=== PATIENT | female | born 1950 | race American Indian/Alaskan Native ===

== ENCOUNTER 2020-03-17 11:36 | Observation (INO) | payer MEDICARE ==
[2020-03-17 13:03] LABS: Hemoglobin 11.3 gm/dl (10.1-14.3); Mean Corpuscular HGB Conc 31 % (30-34); Mean Corpuscular Volume 85 fl (79-97); Platelet Count 140 K/mm3 (140-440); Red Blood Count 4.22 M/mm3 (3.65-5.03); Red Cell Distribution Width 15.6 % (13.2-15.2)
--- NOTE | 2020-03-17 13:06 | XRay Report ---
Chest 2 views INDICATION: Chest pain IMPRESSION: Tracheostomy tube projects at midline. Significant elevation of the left hemidiaphragm wi th multiple dilated loops of colon within the left upper quadrant. Ill-defined density within the lef t lower lung may represent atelectasis. Faint ill-defined densities within the right lower lung. Signer Name: Les Blunt MD Signed: 03/17/2020 1:01 PM Workstation Name: [id number]
[2020-03-17 13:25] LABS: BUN/Creatinine Ratio 16; Blood Urea Nitrogen 23 mg/dL (7-17); Calcium 9.6 mg/dL (8.4-10.2); Hemolysis Index 11
[2020-03-17 14:51] LABS: Platelet Estimate Consistent w Auto; RBC Morphology Normal; Total Cells Counted 100
--- NOTE | 2020-03-17 18:28 | Emergency Department Report ---
ED Shortness of Breath HPI - General Chief Complaint: Dyspnea/Respdistress Stated Complaint: DIFFICULTY BREATHING Source: patient Mode of arrival: Ambulatory Limitations: No Limitations - History of Present Illness Initial Comments: Patient is a 70-year-old F Burmese female who has a trach secondary to remote brain surgery who is presenting with cough shortness of breath for the last 3 to 4 days. Patient states the cough is wet and mildly productive. States is been very short of breath. Patient denies any fever body aches nausea vomiting diarrhea. She has not had COVID-19 testing. Improves With: oxygen Worsens With: nothing Associated Symptoms: cough, sputum production - Related Data Allergies Allergy/AdvReac Type Severity Reaction Status Date / Time celecoxib [From Celebrex] Allergy Unknown Verified 03/17/20 12:05 ED Review of Systems ROS: Stated complaint: DIFFICULTY BREATHING Other details as noted in HPI Comment: All other systems reviewed and negative ED Past Medical Hx - Past Medical History Previous Medical History?: Yes Hx Hypertension: Yes Hx Dementia: Yes Additional medical history: O2 AT HOME - Surgical History Past Surgical History?: Yes Additional Surgical History: KNEE REPLACEMENTS ED Physical Exam - General Limitations: No Limitations General appearance: alert, in no apparent distress - Head Head exam: Present: atraumatic, normocephalic - Eye Eye exam: Present: normal appearance, PERRL, EOMI - ENT ENT exam: Present: mucous membranes moist - Neck Neck exam: Present: normal inspection - Respiratory Respiratory exam: Present: respiratory distress, wheezes, accessory muscle use. Absent: normal lung sounds bilaterally, rales, rhonchi - Cardiovascular Cardiovascular Exam: Present: regular rate, normal rhythm, normal heart sounds. Absent: systolic murmur, diastolic murmur, rubs, gallop - GI/Abdominal GI/Abdominal exam: Present: soft, normal bowel sounds. Absent: distended, tenderness, guarding, rebound - Extremities Exam Extremities exam: Present: normal inspection - Back Exam Back exam: Present: normal inspection - Neurological Exam Neurological exam: Present: alert, oriented X3 - Psychiatric Psychiatric exam: Present: normal affect, normal mood - Skin Skin exam: Present: warm, dry, intact, normal color. Absent: rash ED Course Vital Signs 03/17/20 03/17/20 03/17/20 12:04 18:46 18:48 Temperature 98.1 F 98.0 F Pulse Rate 75 80 Respiratory 24 31 H Rate Blood Pressure 164/81 181/92 [Left] O2 Sat by Pulse 94 100 Oximetry ED Medical Decision Making - Lab Data Result diagrams: 03/17/20 12:35 03/17/20 21:15 Lab Results 03/17/20 03/17/20 Range/Units 12:35 12:35 WBC 6.6 (4.5-11.0) K/mm3 RBC 4.22 (3.65-5.03) M/mm3 Hgb 11.3 (10.1-14.3) gm/dl Hct 36.0 (30.3-42.9) % MCV 85 (79-97) fl MCH 27 L (28-32) pg MCHC 31 (30-34) % RDW 15.6 H (13.2-15.2) % Plt Count 140 (140-440) K/mm3 Eos % (Auto) Bone Char Puller Add Manual Diff Complete Total Counted 100 Seg Neuts % (Manual) 63.0 (40.0-70.0) % Band Neutrophils % 0 % Lymphocytes % (Manual) 12.0 L (13.4-35.0) % Reactive Lymphs % (Man) 0 % Monocytes % (Manual) 3.0 (0.0-7.3) % Eosinophils % (Manual) 20.0 H (0.0-4.3) % Basophils % (Manual) 2.0 H (0.0-1.8) % Metamyelocytes % 0 % Myelocytes % 0 % Promyelocytes % 0 % Blast Cells % 0 % Nucleated RBC % Not Reportable Seg Neutrophils # Man 4.2 (1.8-7.7) K/mm3 Band Neutrophils # 0.0 K/mm3 Lymphocytes # (Manual) 0.8 L (1.2-5.4) K/mm3 Abs React Lymphs (Man) 0.0 K/mm3 Monocytes # (Manual) 0.2 (0.0-0.8) K/mm3 Eosinophils # (Manual) 1.3 H (0.0-0.4) K/mm3 Basophils # (Manual) 0.1 (0.0-0.1) K/mm3 Metamyelocytes # 0.0 K/mm3 Myelocytes # 0.0 K/mm3 Promyelocytes # 0.0 K/mm3 Blast Cells # 0.0 K/mm3 WBC Morphology Not Reportable Hypersegmented Neuts Not Reportable Hyposegmented Neuts Not Reportable Hypogranular Neuts Not Reportable Smudge Cells Not Reportable Toxic Granulation Not Reportable Toxic Vacuolation Not Reportable Dohle Bodies Not Reportable Pelger-Huet Anomaly Not Reportable Vita Rods Not Reportable Platelet Estimate Consistent w auto Clumped Platelets Not Reportable Plt Clumps, EDTA Not Reportable Large Platelets Not Reportable Giant Platelets Not Reportable Platelet Satelliting Not Reportable Plt Morphology Comment Not Reportable RBC Morphology Normal Dimorphic RBCs Not Reportable Polychromasia Not Reportable Hypochromasia Not Reportable Poikilocytosis Not Reportable Anisocytosis Not Reportable Microcytosis Not Reportable Macrocytosis Not Reportable Spherocytes Not Reportable Pappenheimer Bodies Not Reportable Sickle Cells Not Reportable Target Cells Not Reportable Tear Drop Cells Not Reportable Ovalocytes Not Reportable Helmet Cells Not Reportable [place] Bodies Not Reportable [place] Rings Not Reportable Ji Cells Not Reportable Bite Cells Not Reportable Crenated Cell Not Reportable Elliptocytes Not Reportable Acanthocytes (Spur) Not Reportable Rouleaux Not Reportable Hemoglobin C Crystals Not Reportable Schistocytes Not Reportable Malaria parasites Not Reportable Erick Bodies Not Reportable Hem Pathologist Commnt No Sodium 142 (137-145) mmol/L Potassium 4.1 (3.6-5.0) mmol/L Chloride 100.8 (98-107) mmol/L Carbon Dioxide 28 (22-30) mmol/L Anion Gap 17 mmol/L BUN 23 H (7-17) mg/dL Creatinine 1.4 H (0.6-1.2) mg/dL Estimated GFR 45 ml/min BUN/Creatinine Ratio 16 % Glucose 105 H (65-100) mg/dL Calcium 9.6 (8.4-10.2) mg/dL Troponin T < 0.010 (0.00-0.029) ng/mL - Radiology Data [facility] [address] [place] [address] XRay Report Signed Patient: RAMAKRISHNA DUKES MR#: [id number] : 1950 Acct:[id number] Age/Sex: 70 / F ADM Date: 03/17/20 Loc: ED Attending Dr: Ordering Physician: ED DOC, Date of Service: 03/17/20 Procedure(s): XR chest routine 2V Accession Number(s): [id number] cc: PEE KOVACS MD Fluoro Time In Minutes: Chest 2 views INDICATION: Chest pain IMPRESSION: Tracheostomy tube projects at midline. Significant elevation of the left hemidiaphragm with multiple dilated loops of colon within the left upper quadrant. Ill- defined density within the left lower lung may represent atelectasis. Faint ill-defined densities within the right lower lung. Signer Name: Les Blunt MD Signed: 03/17/2020 1:01 PM Workstation Name: [id number] - Medical Decision Making After hour-long neb treatment the patient is continued to have wheezing and shortness of breath. Patient will be admitted to the hospitalist service for further management. Critical care attestation.: If time is entered above; I have spent that time in minutes in the direct care of this critically ill patient, excluding procedure time. ED Disposition Clinical Impression: Acute bronchitis, Bronchospasm, Suspected COVID-19 virus infection Disposition: OP ADMIT IP TO THIS HOSP Is pt being admited?: Yes Does the pt Need Aspirin: No Condition: Stable Time of Disposition: 22:05
[2020-03-17] MEDS ORDERED: MAGNESIUM SULFATE 2 GM/50 ML BAG IV ONE (18:40)
[2020-03-17] MEDS ORDERED: ALBUTEROL 2.5 MG/3 ML NEBU IH ONE (18:40)
[2020-03-17] MEDS ORDERED: IPRATROPIUM 0.02% NEBU 2.5 ML IH ONE (18:40)
[2020-03-17] MEDS ORDERED: methylPREDNISolone Sod Succinate 125 MG/2 ML INJ IV ONE (18:40)
[2020-03-17] MEDS ORDERED: methylPREDNISolone Sod Succinate 40 MG/1 ML INJ ONE (20:49)
[2020-03-17] MEDS ORDERED: methylPREDNISolone Sod Succinate 125 MG/2 ML INJ ONE (20:51)
[2020-03-17] MEDS ORDERED: BENZONATATE 100 MG CAP PO ONE ×2 (20:59→21:01)
[2020-03-17] MEDS ORDERED: MORPHINE 2 MG/1 ML INJ IV PRN (22:30)
[2020-03-17] MEDS ORDERED: ONDANSETRON 4 MG/2 ML INJ IV PRN (22:30)
[2020-03-17] MEDS ORDERED: MAGNESIUM HYDROXIDE (MOM) ORAL LIQD UDC PO PRN (22:30)
[2020-03-17] MEDS ORDERED: ACETAMINOPHEN 325 MG TAB PO PRN (22:30)
--- NOTE | 2020-03-17 22:40 | History and Physical Report ---
History of Present Illness Date of examination: 03/17/20 Date of admission: 03/17/2020 Chief complaint: Cough Shortness of breath History of present illness: 70-year-old -Y[place]i female with known history of hypertension, history of trach secondary to remote brain surgery and on oxygen at home presenting to the emergency room today complaining of cough, congestion, shortness of breath for the past 3 to 4 days. Patient states that cough is slightly productive of some whitish sputum. She denies any fever or chills, no chest pain, no nausea vomiting, no abdominal pain and no diarrhea. Patient denies any sick contacts and no recent travel, she denies any contact with anyone with COVID-19. Upon arrival in the emergency room patient was found to be wheezing and she was given some nebulizing treatments. Work-up today chest x-ray reveals:Tracheostomy tube projects at midline. Significant elevation of the left hemidiaphragm with multiple dilated loops of colon within the left upper quadrant. Ill- defined density within the left lower lung may represent atelectasis. Faint ill-defined densities within the right lower lung. Patient is being admitted for dyspnea possibly secondary to bronchitis and will rule out COVID 19. Past History Past Medical History: hypertension, other (Dementia,H/O Trach with oxygen at home) Past Surgical History: total knee replacement, Other (Trach Placement, Brain surgery) Social history: no significant social history Family history: no significant family history Medications and Allergies Allergies Allergy/AdvReac Type Severity Reaction Status Date / Time celecoxib [From Celebrex] Allergy Unknown Verified 03/17/20 12:05 Home Medications Medication Instructions Recorded Confirmed Last Taken Type Aspirin 81 mg PO DAILY 03/18/20 03/18/20 Unknown History Furosemide [Lasix TAB] 20 mg PO DAILY 03/18/20 03/18/20 Unknown History Gabapentin 300 mg PO BID 03/18/20 03/18/20 Unknown History Losartan/Hydrochlorothiazide mg PO DAILY 03/18/20 Unknown History [Losartan-Hctz 100-25 mg Tab] Metoprolol Tartrate [Lopressor] 100 mg PO BID 03/18/20 03/18/20 Unknown History Pravastatin 10 mg PO DAILY 03/18/20 03/18/20 Unknown History Active Meds: Active Medications Acetaminophen (Tylenol) 650 mg PO Q4H PRN PRN Reason: Pain MILD(1-3)/Fever >100.5/GARCIA Albuterol/Ipratropium (Duoneb *Not For Prn Use*) 1 ampul IH Q6HRT GILBERTO Magnesium Hydroxide (Milk Of Magnesia) 30 ml PO Q4H PRN PRN Reason: Constipation Methylprednisolone Sodium Succinate (Solu-Medrol) 40 mg IV Q8HR GILBERTO Morphine Sulfate (Morphine) 2 mg IV Q4H PRN PRN Reason: Pain, Moderate (4-6) Ondansetron HCl (Zofran) 4 mg IV Q8H PRN PRN Reason: Nausea And Vomiting Sodium Chloride (Sodium Chloride Flush Syringe 10 Ml) 10 ml IV BID GILBERTO Sodium Chloride (Sodium Chloride Flush Syringe 10 Ml) 10 ml IV PRN PRN PRN Reason: LINE FLUSH Review of Systems Constitutional: no fever, no chills Ears, nose, mouth and throat: no nasal congestion, no sore throat Cardiovascular: no chest pain, no palpitations Respiratory: cough, shortness of breath Gastrointestinal: no abdominal pain, no nausea, no vomiting, no diarrhea Genitourinary Female: no flank pain, no dysuria, no hematuria Musculoskeletal: low back pain, no neck pain Integumentary: no rash, no pruritis Neurological: no headaches, no confusion Psychiatric: no anxiety, no depression Exam - Constitutional Vitals: Temp Pulse Resp BP Pulse Ox 98.0 F 80 31 H 181/92 100 03/17/20 18:48 03/17/20 18:46 03/17/20 18:46 03/17/20 18:48 03/17/20 18:46 General appearance: Present: no acute distress, well-nourished, other (Trach in place) - EENT Eyes: Present: PERRL, EOM intact ENT: hearing intact, clear oral mucosa, dentition normal - Neck Neck: Present: supple, normal ROM - Respiratory Respiratory effort: normal Respiratory: bilateral: wheezing - Cardiovascular Rhythm: regular Heart Sounds: Present: S1 & S2. Absent: gallop, systolic murmur, diastolic murmur, rub - Extremities Extremities: no ischemia, pulses intact, pulses symmetrical, No edema, Full ROM Peripheral Pulses: within normal limits - Abdominal General gastrointestinal: Present: soft, non-tender, non-distended, normal bowel sounds. Absent: mass - Integumentary Integumentary: Present: clear, warm, dry - Musculoskeletal Musculoskeletal: strength equal bilaterally - Psychiatric Psychiatric: appropriate mood/affect, intact judgment & insight, memory intact, cooperative - Neurologic Neurologic: CNII-XII intact, no focal deficits, moves all extremities HEART Score - HEART Score Troponin: Troponin T < 0.010 ng/mL (0.00-0.029) 03/17/20 12:35 Results - Labs CBC & Chem 7: 03/17/20 12:35 03/17/20 21:15 Labs: Abnormal lab results 03/17/20 03/17/20 03/17/20 Range/Units 12:35 12:35 21:15 MCH 27 L (28-32) pg RDW 15.6 H (13.2-15.2) % Lymphocytes % (Manual) 12.0 L (13.4-35.0) % Eosinophils % (Manual) 20.0 H (0.0-4.3) % Basophils % (Manual) 2.0 H (0.0-1.8) % Lymphocytes # (Manual) 0.8 L (1.2-5.4) K/mm3 Eosinophils # (Manual) 1.3 H (0.0-0.4) K/mm3 D-Dimer 360.31 H (0-234) ng/mlDDU BUN 23 H (7-17) mg/dL Creatinine 1.4 H (0.6-1.2) mg/dL Glucose 105 H (65-100) mg/dL 03/17/20 Range/Units 21:15 MCH (28-32) pg RDW (13.2-15.2) % Lymphocytes % (Manual) (13.4-35.0) % Eosinophils % (Manual) (0.0-4.3) % Basophils % (Manual) (0.0-1.8) % Lymphocytes # (Manual) (1.2-5.4) K/mm3 Eosinophils # (Manual) (0.0-0.4) K/mm3 D-Dimer (0-234) ng/mlDDU BUN (7-17) mg/dL Creatinine (0.6-1.2) mg/dL Glucose 116 H (65-100) mg/dL Assessment and Plan - Patient Problems (1) Acute bronchitis Current Visit: Yes Status: Acute Plan to address problem: Patient placed on empiric IV antibiotics. (2) Suspected COVID-19 virus infection Current Visit: Yes Status: Acute Plan to address problem: Patient placed on isolation precautions. We await COVID-19 testing results[address] will place a consult to infectious disease for evaluation and recommendation. (3) Bronchospasm Current Visit: Yes Status: Acute Plan to address problem: Patient placed on nebulizer treatment and IV steroid. We will keep O2 saturation greater or equal to 94%. (4) Hypertension Current Visit: Yes Status: Acute Plan to address problem: We will resume routine home medications and monitor vital signs closely. (5) DVT prophylaxis Current Visit: Yes Status: Acute Plan to address problem: Patient placed on subcutaneous heparin. (6) Full code status Current Visit: Yes Status: Acute
[2020-03-18 00:12] LABS: C-Reactive Protein 0.1 mg/dL (0.00-1.30)
[2020-03-18] MEDS: IPRATROPIUM/ALBUTEROL SULFATE 3 ML AMPUL.NEB IH SCH ×4 (01:11→20:31)
[2020-03-18 05:47] LABS: INR 1.07 (0.87-1.13)
[2020-03-18 05:49] LABS: Calcium 9.6 mg/dL (8.4-10.2)
[2020-03-18] MEDS: HEPARIN 5,000 UNIT/1 ML VIAL SUB-Q SCH ×3 (08:05→21:27)
[2020-03-18] MEDS: methylPREDNISolone Sod Succinate 40 MG/1 ML INJ IV SCH ×3 (08:05→21:27)
[2020-03-18] MEDS: GABAPENTIN 300 MG CAP PO SCH ×2 (09:23→21:27)
[2020-03-18] MEDS: METOPROLOL TARTRATE 100 MG TAB PO SCH ×2 (09:24→21:27)
[2020-03-18] MEDS: ASPIRIN 81 MG TAB CHEW PO SCH (09:24)
[2020-03-18] MEDS: PRAVASTATIN 20 MG TAB PO SCH (09:24)
[2020-03-18] MEDS ORDERED: NON-FORMULARY EACH (Aspirin 81 MG) PO SCH (10:00)
[2020-03-18] MEDS ORDERED: NON-FORMULARY EACH (Gabapentin 300 MG) PO SCH (10:00)
[2020-03-18] MEDS ORDERED: PRAVASTATIN 10 MG PO SCH (10:00)
--- NOTE | 2020-03-18 13:01 | Progress Note ---
Assessment and Plan Assessment and plan: - Patient Problems (1) Acute bronchitis Current Visit: Yes Status: Acute Plan to address problem: Antibiotics Steroids, bronchodilators (2) Suspected COVID-19 virus infection Current Visit: Yes Status: Acute Plan to address problem: COVID-19 pending (3) Bronchospasm Current Visit: Yes Status: Acute Plan to address problem: Patient placed on nebulizer treatment and IV steroid. We will keep O2 saturation greater or equal to 94%. (4) Hypertension Current Visit: Yes Status: Acute Plan to address problem: We will resume routine home medications and monitor vital signs closely. (5) DVT prophylaxis Current Visit: Yes Status: Acute Plan to address problem: Patient placed on subcutaneous heparin. (6) Full code status Current Visit: Yes Status: Acute History Interval history: Patient seen and examined at bedside this morning. She has repetitive coughing spells. She is on steroids and bronchodilators. COVID-19 test pending Hospitalist Physical - Constitutional Vitals: Temp Pulse Resp BP Pulse Ox 98.2 F 77 20 168/78 97 03/18/20 03:02 03/18/20 03:02 03/18/20 03:02 03/18/20 03:02 03/18/20 03:02 General appearance: Present: no acute distress, well-nourished, other (Trach in place) - EENT Eyes: Present: PERRL - Respiratory Respiratory: bilateral: wheezing - Extremities Extremities: No edema - Abdominal General gastrointestinal: soft, non-tender, non-distended, normal bowel sounds - Psychiatric Psychiatric: appropriate mood/affect - Neurologic Neurologic: CNII-XII intact HEART Score - HEART Score Troponin: Troponin T < 0.010 ng/mL (0.00-0.029) 03/17/20 12:35 Results - Labs CBC & Chem 7: 03/17/20 12:35 03/18/20 05:09 Labs: Laboratory Last Values WBC 6.6 K/mm3 (4.5-11.0) 03/17/20 12:35 RBC 4.22 M/mm3 (3.65-5.03) 03/17/20 12:35 Hgb 11.3 gm/dl (10.1-14.3) 03/17/20 12:35 Hct 36.0 % (30.3-42.9) 03/17/20 12:35 MCV 85 fl (79-97) 03/17/20 12:35 MCH 27 pg (28-32) L 03/17/20 12:35 MCHC 31 % (30-34) 03/17/20 12:35 RDW 15.6 % (13.2-15.2) H 03/17/20 12:35 Plt Count 140 K/mm3 (140-440) 03/17/20 12:35 Eos % (Auto) Job Development Specialist 03/17/20 12:35 Add Manual Diff Complete 03/17/20 12:35 Total Counted 100 03/17/20 12:35 Seg Neuts % (Manual) 63.0 % (40.0-70.0) 03/17/20 12:35 Band Neutrophils % 0 % 03/17/20 12:35 Lymphocytes % (Manual) 12.0 % (13.4-35.0) L 03/17/20 12:35 Reactive Lymphs % (Man) 0 % 03/17/20 12:35 Monocytes % (Manual) 3.0 % (0.0-7.3) 03/17/20 12:35 Eosinophils % (Manual) 20.0 % (0.0-4.3) H 03/17/20 12:35 Basophils % (Manual) 2.0 % (0.0-1.8) H 03/17/20 12:35 Metamyelocytes % 0 % 03/17/20 12:35 Myelocytes % 0 % 03/17/20 12:35 Promyelocytes % 0 % 03/17/20 12:35 Blast Cells % 0 % 03/17/20 12:35 Nucleated RBC % Not Reportable 03/17/20 12:35 Seg Neutrophils # Man 4.2 K/mm3 (1.8-7.7) 03/17/20 12:35 Band Neutrophils # 0.0 K/mm3 03/17/20 12:35 Lymphocytes # (Manual) 0.8 K/mm3 (1.2-5.4) L 03/17/20 12:35 Abs React Lymphs (Man) 0.0 K/mm3 03/17/20 12:35 Monocytes # (Manual) 0.2 K/mm3 (0.0-0.8) 03/17/20 12:35 Eosinophils # (Manual) 1.3 K/mm3 (0.0-0.4) H 03/17/20 12:35 Basophils # (Manual) 0.1 K/mm3 (0.0-0.1) 03/17/20 12:35 Metamyelocytes # 0.0 K/mm3 03/17/20 12:35 Myelocytes # 0.0 K/mm3 03/17/20 12:35 Promyelocytes # 0.0 K/mm3 03/17/20 12:35 Blast Cells # 0.0 K/mm3 03/17/20 12:35 WBC Morphology Not Reportable 03/17/20 12:35 Hypersegmented Neuts Not Reportable 03/17/20 12:35 Hyposegmented Neuts Not Reportable 03/17/20 12:35 Hypogranular Neuts Not Reportable 03/17/20 12:35 Smudge Cells Not Reportable 03/17/20 12:35 Toxic Granulation Not Reportable 03/17/20 12:35 Toxic Vacuolation Not Reportable 03/17/20 12:35 Dohle Bodies Not Reportable 03/17/20 12:35 Pelger-Huet Anomaly Not Reportable 03/17/20 12:35 Vita Rods Not Reportable 03/17/20 12:35 Platelet Estimate Consistent w auto 03/17/20 12:35 Clumped Platelets Not Reportable 03/17/20 12:35 Plt Clumps, EDTA Not Reportable 03/17/20 12:35 Large Platelets Not Reportable 03/17/20 12:35 Giant Platelets Not Reportable 03/17/20 12:35 Platelet Satelliting Not Reportable 03/17/20 12:35 Plt Morphology Comment Not Reportable 03/17/20 12:35 RBC Morphology Normal 03/17/20 12:35 Dimorphic RBCs Not Reportable 03/17/20 12:35 Polychromasia Not Reportable 03/17/20 12:35 Hypochromasia Not Reportable 03/17/20 12:35 Poikilocytosis Not Reportable 03/17/20 12:35 Anisocytosis Not Reportable 03/17/20 12:35 Microcytosis Not Reportable 03/17/20 12:35 Macrocytosis Not Reportable 03/17/20 12:35 Spherocytes Not Reportable 03/17/20 12:35 Pappenheimer Bodies Not Reportable 03/17/20 12:35 Sickle Cells Not Reportable 03/17/20 12:35 Target Cells Not Reportable 03/17/20 12:35 Tear Drop Cells Not Reportable 03/17/20 12:35 Ovalocytes Not Reportable 03/17/20 12:35 Helmet Cells Not Reportable 03/17/20 12:35 Hanley-[place] Bodies Not Reportable 03/17/20 12:35 [place] Rings Not Reportable 03/17/20 12:35 [place] Cells Not Reportable 03/17/20 12:35 Bite Cells Not Reportable 03/17/20 12:35 Crenated Cell Not Reportable 03/17/20 12:35 Elliptocytes Not Reportable 03/17/20 12:35 Acanthocytes (Spur) Not Reportable 03/17/20 12:35 Rouleaux Not Reportable 03/17/20 12:35 Hemoglobin C Crystals Not Reportable 03/17/20 12:35 Schistocytes Not Reportable 03/17/20 12:35 Malaria parasites Not Reportable 03/17/20 12:35 Erick Bodies Not Reportable 03/17/20 12:35 Hem Pathologist Commnt No 03/17/20 12:35 PT 14.0 Sec. (12.2-14.9) 03/18/20 05:09 INR 1.07 (0.87-1.13) 03/18/20 05:09 D-Dimer 360.31 ng/mlDDU (0-234) H 03/17/20 21:15 Sodium 142 mmol/L (137-145) 03/18/20 05:09 Potassium 4.5 mmol/L (3.6-5.0) 03/18/20 05:09 Chloride 98.8 mmol/L (98-107) 03/18/20 05:09 Carbon Dioxide 27 mmol/L (22-30) 03/18/20 05:09 Anion Gap 21 mmol/L 03/18/20 05:09 BUN 25 mg/dL (7-17) H 03/18/20 05:09 Creatinine 1.4 mg/dL (0.6-1.2) H 03/18/20 05:09 Estimated GFR 45 ml/min 03/18/20 05:09 BUN/Creatinine Ratio 18 % 03/18/20 05:09 Glucose 260 mg/dL (65-100) H 03/18/20 05:09 Calcium 9.6 mg/dL (8.4-10.2) 03/18/20 05:09 Ferritin 93.0 ng/mL (10.0-200.0) 03/17/20 21:15 Lactate Dehydrogenase 250 units/L (91-180) H 03/17/20 21:15 Troponin T < 0.010 ng/mL (0.00-0.029) 03/17/20 12:35 C-Reactive Protein 0.10 mg/dL (0.00-1.30) 03/17/20 21:15 Procalcitonin 0.32 ng/mL (<0.15) 03/17/20 21:15 Active Medications - Current Medications Current Medications: Generic Name Dose Route Start Last Admin Trade Name Freq PRN Reason Stop Dose Admin Acetaminophen 650 mg 03/17/20 22:30 Tylenol PO Q4H PRN Pain MILD(1-3)/Fever >100.5/GARCIA Albuterol/Ipratropium 1 ampul 03/18/20 02:00 03/18/20 08:34 Duoneb *Not For Prn Use* IH 1 ampul Q6HRT GILBERTO Administration Aspirin 81 mg 03/18/20 10:00 03/18/20 09:24 Baby Aspirin PO 81 mg QDAY GILBERTO Administration Gabapentin 300 mg 03/18/20 10:00 03/18/20 09:23 Gabapentin PO 300 mg BID GILBERTO Administration Heparin Sodium (Porcine) 5,000 unit 03/18/20 06:00 03/18/20 08:05 Heparin SUB-Q 5,000 unit Q8HR GILBERTO Administration Magnesium Hydroxide 30 ml 03/17/20 22:30 Milk Of Magnesia PO Q4H PRN Constipation Methylprednisolone Sodium Succinate 40 mg 03/18/20 06:00 03/18/20 08:05 Solu-Medrol IV 40 mg Q8HR GILBERTO Administration Metoprolol Tartrate 100 mg 03/18/20 10:00 03/18/20 09:24 Metoprolol PO 100 mg BID GILBERTO Administration Morphine Sulfate 2 mg 03/17/20 22:30 Morphine IV Q4H PRN Pain, Moderate (4-6) Ondansetron HCl 4 mg 03/17/20 22:30 Zofran IV Q8H PRN Nausea And Vomiting Pravastatin Sodium 10 mg 03/18/20 10:00 03/18/20 09:24 Pravachol PO 10 mg DAILY GILBERTO Administration Sodium Chloride 10 ml 03/18/20 10:00 03/18/20 09:24 Sodium Chloride Flush Syringe 10 Ml IV 10 ml BID GILBERTO Administration Sodium Chloride 10 ml 03/17/20 22:30 Sodium Chloride Flush Syringe 10 Ml IV PRN PRN LINE FLUSH
[2020-03-18] MEDS ORDERED: AZITHROMYCIN 250 MG TAB PO ONE (14:00)
[2020-03-18] MEDS ORDERED: cefTRIAXone/NS 1 GM/50 ML 1 GM/50 ML BAG IV SCH (14:00)
[2020-03-18] MEDS: BENZONATATE 100 MG CAP PO SCH ×2 (14:27→21:27)
[2020-03-19 01:21] LABS: Basophils % (Auto) 0.2 % (0.0-1.8); Eosinophils % (Auto) 0.2 % (0.0-4.3); Hematocrit 34.3 % (30.3-42.9); Hemoglobin 10.8 gm/dl (10.1-14.3); Lymphocytes # (Auto) 1.7 K/mm3 (1.2-5.4); Lymphocytes % (Auto) 9.9 % (13.4-35.0); Mean Corpuscular HGB Conc 31 % (30-34); Mean Corpuscular Volume 85 fl (79-97); Monocytes # (Auto) 0.6 K/mm3 (0.0-0.8); Monocytes % (Auto) 3.7 % (0.0-7.3); Platelet Count 117 K/mm3 (140-440); Red Blood Count 4.04 M/mm3 (3.65-5.03); Red Cell Distribution Width 15.5 % (13.2-15.2)
[2020-03-19] MEDS: HEPARIN 5,000 UNIT/1 ML VIAL SUB-Q SCH (05:13)
[2020-03-19] MEDS: methylPREDNISolone Sod Succinate 40 MG/1 ML INJ IV SCH (05:13)
[2020-03-19] MEDS: BENZONATATE 100 MG CAP PO SCH (05:14)
[2020-03-19] MEDS ORDERED: IPRATROPIUM/ALBUTEROL SULFATE 3 ML AMPUL.NEB IH SCH (08:00)
[2020-03-19] MEDS: PRAVASTATIN 20 MG TAB PO SCH (09:03)
[2020-03-19] MEDS: GABAPENTIN 300 MG CAP PO SCH (09:04)
[2020-03-19] MEDS: METOPROLOL TARTRATE 100 MG TAB PO SCH (09:04)
[2020-03-19] MEDS: ASPIRIN 81 MG TAB CHEW PO SCH (09:04)
--- NOTE | 2020-03-19 09:26 | Discharge Summary ---
Providers - Providers Date of Admission: 03/17/20 22:50 Date of discharge: 03/19/20 Attending physician: ELBA GUERRERO 03/17/20 22:30 Consult to Physician [CONS] Routine Comment: Consulting Provider: ALMA ALONZO Physician Instructions: Reason For Exam: ACUTE BRONCHITIS R/O COVID 19 Primary care physician: YANELY LOERA Hospitalization Condition: Stable Hospital course: 70-year-old -[place] female with known history of hypertension, history of trach secondary to remote brain surgery and on oxygen at home presenting to the emergency room today complaining of cough, congestion, shortness of breath for the past 3 to 4 days. Patient states that cough is slightly productive of some whitish sputum. She denies any fever or chills, no chest pain, no nausea vomiting, no abdominal pain and no diarrhea. Patient denies any sick contacts and no recent travel, she denies any contact with anyone with COVID-19. Upon arrival in the emergency room patient was found to be wheezing and she was given some nebulizing treatments. Work-up with chest x-ray reveals:Tracheostomy tube projects at midline. Sign ificant elevation of the left hemidiaphragm with multiple dilated loops of colon within the left upper quadrant. Ill-defined density within the left lower lung may represent atelectasis. Faint ill-defined densities within the right lower lung. Patient is being admitted for dyspnea possibly secondary to bronchitis and will rule out COVID 19. She was started on broad-spectrum antibiotics and steroids. COVID-19 test sent and results is negative. Currently patient is not hypoxic and usually uses 2 L of oxygen as needed at home. Procalcitonin is 0.3 so she will complete antibiotics for total of 7 days. She will also be discharged on prednisone taper. She will need to follow-up with pulmonology for repeat chest x-ray to confirm resolution of pneumonia and fully evaluate densities in the right lower lung. She agrees with management. Disposition: - TO HOME OR SELFCARE - Discharge Diagnoses (1) Acute bronchitis Status: Acute (2) Hypertension Status: Acute (3) Pneumonia Status: Acute Core Measure Documentation - Palliative Care Palliative Care/ Comfort Measures: Not Applicable - Core Measures Any of the following diagnoses?: none Exam - Constitutional Vitals: Temp Pulse Resp BP Pulse Ox 97.9 F 90 18 140/65 97 03/19/20 04:19 03/19/20 08:43 03/19/20 08:43 03/19/20 04:19 03/19/20 08:42 General appearance: Present: no acute distress, well-nourished - EENT Eyes: Present: PERRL ENT: hearing intact, clear oral mucosa - Neck Neck: Present: supple, normal ROM - Respiratory Respiratory effort: normal Respiratory: bilateral: wheezing (Improved) - Cardiovascular Heart Sounds: Present: S1 & S2. Absent: rub, click - Extremities Extremities: pulses symmetrical, No edema Peripheral Pulses: within normal limits - Abdominal General gastrointestinal: Present: soft, non-tender, non-distended, normal bowel sounds Female genitourinary: Present: normal - Integumentary Integumentary: Present: clear, warm, dry - Musculoskeletal Musculoskeletal: gait normal, strength equal bilaterally - Psychiatric Psychiatric: appropriate mood/affect, intact judgment & insight - Neurologic Neurologic: CNII-XII intact, moves all extremities Plan Activity: no restrictions Additional Instructions: Continue antibiotics-Cefpodoxime and azithromycin. Continue steroids for 5 days. Follow-up with pulmonology in the office. You need to have a repeat chest imaging performed in about 2 to 3 weeks to confirm resolution of pneumonia Follow up with: YANELY LOERA MD [Primary Care Provider] - 7 Days Prescriptions: Cefpodoxime Proxetil 200 mg PO Q12H #12 tablet predniSONE [Deltasone] 40 mg PO DAILY #5 tablet Benzonatate [Tessalon Perles] 100 mg PO Q8HR #21 capsule Azithromycin [Zithromax TAB] 250 mg PO QDAY #4 tablet
[2020-03-19] MEDS ORDERED: cefTRIAXone/NS 2 GM/100 ML 2 GM/100 ML BAG IV SCH (10:00)
[2020-03-19] MEDS ORDERED: AZITHROMYCIN 250 MG TAB PO SCH (10:00)
[2020-03-19] MEDS ORDERED: AZITHROMYCIN 250 MG TAB PO ONE (12:58)
[2020-03-19 13:27] VITALS: BP 143/68
== END 2020-03-19 13:34 | disposition home or self-care (01) ==
LOC: ED 11:36 → 3A 22:50
PROVIDERS: ADMIT Internal Medicine Geriatric Medicine; ATTEND Internal Medicine
DX: J20.9 Acute bronchitis, unspecified (principal); Z20.828 Contact with and (suspected) exposure to other viral communicable diseases; J18.9 Pneumonia, unspecified organism; I10 Essential (primary) hypertension; F02.80 Dementia in other diseases classified elsewhere, unspecified severity, without behavioral disturbance, psychotic disturbance, mood disturbance, and anxiety; Z96.659 Presence of unspecified artificial knee joint; Z98.890 Other specified postprocedural states; Z79.82 Long term (current) use of aspirin
CPT/HCPCS: 36415; 71046; 80048; 82728; 82947; 83615; 84145; 84484; 85007; 85025; 85379; 85610; 86140; 93005; 94640; 94760; 96365; 96366; 96367; 96372; 96375; 96376; 99285; A9270; G0378; J0696; J1644; J2920; J2930; J3475; U0003

== ENCOUNTER 2020-03-25 14:09 | Emergency (ER) | payer MEDICARE ==
[2020-03-25 14:13] VITALS: BP 127/82
--- NOTE | 2020-03-25 17:46 | XRay Report ---
CHEST 2 VIEWS INDICATION: cough, sob. COMPARISON: 03/17/2020 FINDINGS: Support devices: Tracheostomy good position Heart: Within normal limits. Lungs: Eventration-elevation again noted left hemidiaphragm No acute air space or interstitial diseas e. Pleura: No significant pleural effusion. No pneumothorax. Additional findings: None. IMPRESSION: 1. No interval changes compared to previous exam Signer Name: Srini Rubio MD Signed: 03/25/2020 5:42 PM Workstation Name: [id number]
[2020-03-25] MEDS ORDERED: ACETAMINOPHEN 500 MG TAB PO ONE (17:59)
--- NOTE | 2020-03-25 18:11 | Emergency Department Report ---
ED Headache HPI - General Chief Complaint: Headache Stated Complaint: HBP Time Seen by Provider: 03/25/20 17:48 Source: patient Exam Limitations: no limitations - History of Present Illness Initial Comments: Chief complaint: HPI: This is a 70-year-old female with history of hypertension, tracheostomy, diabetes mellitus who presents to the emergency department for headache and elevated blood pressure. For several days patient has had frontal throbbing headache intermittently. Headache is prominent behind the eyes. Today her roommate called EMS because she felt as if her head was going to explode. Headache has since resolved after taking ibuprofen. Patient has persistent cough since discharge. Cough and shortness of breath have improved with antibiotics and steroids. Patient was admitted to this hospital for 2 days according to electronic medical record. She was discharged with prescription for prednisone azithromycin Tessalon Perles, Cefpodoxime Timing/Duration: other (Several days) Quality: moderate, severe Head Injury Location: frontal Recent Head Trauma: occasional headaches Associated Symptoms: denies symptoms Allergies/Adverse Reactions: Allergies celecoxib [From [employer] [facility]] Allergy (Verified 03/17/20 12:05) Unknown Home Medications: Ambulatory Orders Aspirin 81 mg PO DAILY 03/18/20 Furosemide [Lasix TAB] 20 mg PO DAILY 03/18/20 Gabapentin 300 mg PO BID 03/18/20 Losartan/Hydrochlorothiazide [Losartan-Hctz 100-25 mg Tab] mg PO DAILY 03/18/20 Metoprolol Tartrate [Lopressor] 100 mg PO BID 03/18/20 Pravastatin 10 mg PO DAILY 03/18/20 Azithromycin [Zithromax TAB] 250 mg PO QDAY #4 tablet 03/19/20 Benzonatate [Tessalon Perles] 100 mg PO Q8HR #21 capsule 03/19/20 Cefpodoxime Proxetil 200 mg PO Q12H #12 tablet 03/19/20 predniSONE [Deltasone] 40 mg PO DAILY #5 tablet 03/19/20 ED Review of Systems ROS: Stated complaint: HBP Other details as noted in HPI Comment: All other systems reviewed and negative Constitutional: denies: fever, malaise Respiratory: cough, shortness of breath Cardiovascular: denies: chest pain Gastrointestinal: denies: abdominal pain, nausea, vomiting ED Past Medical Hx - Past Medical History Previous Medical History?: Yes Hx Hypertension: Yes Hx Diabetes: Yes Hx Dementia: Yes Additional medical history: O2 AT HOME - Surgical History Past Surgical History?: Yes Additional Surgical History: KNEE REPLACEMENTS, pituitary tumor resection - Social History Smoking Status: Former Smoker - Medications Home Medications: Home Medications Medication Instructions Recorded Confirmed Last Taken Type Aspirin 81 mg PO DAILY 03/18/20 03/18/20 Unknown History Furosemide [Lasix TAB] 20 mg PO DAILY 03/18/20 03/18/20 Unknown History Gabapentin 300 mg PO BID 03/18/20 03/18/20 Unknown History Losartan/Hydrochlorothiazide mg PO DAILY 03/18/20 Unknown History [Losartan-Hctz 100-25 mg Tab] Metoprolol Tartrate [Lopressor] 100 mg PO BID 03/18/20 03/18/20 Unknown History Pravastatin 10 mg PO DAILY 03/18/20 03/18/20 Unknown History Azithromycin [Zithromax TAB] 250 mg PO QDAY #4 tablet 03/19/20 Unknown Rx Benzonatate [Tessalon Perles] 100 mg PO Q8HR #21 capsule 03/19/20 Unknown Rx Cefpodoxime Proxetil 200 mg PO Q12H #12 tablet 03/19/20 Unknown Rx predniSONE [Deltasone] 40 mg PO DAILY #5 tablet 03/19/20 Unknown Rx ED Physical Exam - General Limitations: No Limitations General appearance: alert, in no apparent distress, other (Appears comfortable, talkative, pleasant) - Head Head exam: Present: atraumatic, normocephalic - Eye Eye exam: Present: normal appearance - ENT ENT exam: Present: mucous membranes moist - Neck Neck exam: Present: normal inspection, other (Tracheostomy tube in place with trach collar. Site clean dry intact no discharge no surrounding erythema) - Respiratory Respiratory exam: Present: normal lung sounds bilaterally, rhonchi. Absent: respiratory distress - Cardiovascular Cardiovascular Exam: Present: regular rate, normal rhythm, normal heart sounds. Absent: systolic murmur, diastolic murmur, rubs, gallop - GI/Abdominal GI/Abdominal exam: Present: soft, normal bowel sounds. Absent: distended, tenderness, guarding, rebound, rigid - Extremities Exam Extremities exam: Present: normal inspection - Neurological Exam Neurological exam: Present: alert, oriented X3 - Psychiatric Psychiatric exam: Present: normal affect, normal mood - Skin Skin exam: Present: warm, dry, intact, normal color. Absent: rash ED Course Vital Signs 03/25/20 14:13 Temperature 98.3 F Pulse Rate 73 Respiratory 16 Rate Blood Pressure 127/82 [Right] ED Medical Decision Making - Medical Decision Making This 70-year-old female who presents with headache frontal. Headaches now resolved. No concerning symptoms such as thunderclap onset, associated neurological symptoms such as blurry vision paralysis numbness. Patient denies fever. Patient denies vomiting. Considerations: Tension headache, sinus headache, viral syndrome such as influenza COVID-19. Patient was normotensive upon arrival. I do not suspect intracranial hemorrhage. Patient is symptom-free. She understands to call 911 if she has onset of severe headache or any concomitant symptoms. Critical care attestation.: If time is entered above; I have spent that time in minutes in the direct care of this critically ill patient, excluding procedure time. ED Disposition Clinical Impression: Tension headache Disposition: DC-01 TO HOME OR SELFCARE Is pt being admited?: No Does the pt Need Aspirin: No Condition: Stable Instructions: Acute Headache (ED) Referrals: PRIMARY CARE, [Primary Care Provider] - 3-5 Days
== END 2020-03-25 18:20 | disposition home or self-care (01) ==
LOC: ED 14:09
DX: G44.209 Tension-type headache, unspecified, not intractable (principal); I10 Essential (primary) hypertension; E11.9 Type 2 diabetes mellitus without complications; Z87.891 Personal history of nicotine dependence; Z98.890 Other specified postprocedural states; Z79.82 Long term (current) use of aspirin; Z79.899 Other long term (current) drug therapy
CPT/HCPCS: 71046; 99283

== ENCOUNTER 2020-08-27 13:24 | Inpatient (IN) | payer MEDICARE ==
--- NOTE | 2020-08-27 13:57 | Emergency Department Report ---
HPI - General Chief Complaint: Dyspnea/Respdistress Time Seen by Provider: 08/27/20 13:31 - HPI HPI: This patient was just admitted here from 08/17/2020 and discharged yesterday after she arrived with decreased responsiveness and was found to have acute hy poxic respiratory failure. Ultimately the patient was found to have sepsis secondary to pseudomonal pneumonia and also appeared to have some COPD exacerbation. The patient has a tracheostomy in place secondary to some previous remote brain surgery. The patient says that her breathing did improve prior to discharge. However, the patient says that she began having some lower extremity weakness upon arrival home. Throughout this morning the patient also once again developed shortness of breath. She says that the inner cannula to her tracheostomy was replaced while she was then the hospital and it does not match up with the supplies that she has at home. EMS found the patient to have a room air pulse ox of 80%. They were unable to place an IV but did provide some oxygen supplementation over the tracheostomy. Patient has a past medical history of asthma, COPD, [id number] diabetes. Patient denies any fever, headache, vision change, slurred speech, numbness. ED Past Medical Hx - Past Medical History Hx Hypertension: Yes Hx Diabetes: Yes Hx Dementia: Yes Additional medical history: O2 AT HOME - Surgical History Additional Surgical History: KNEE REPLACEMENTS, pituitary tumor resection - Social History Smoking Status: Never Smoker - Medications Home Medications: Home Medications Medication Instructions Recorded Confirmed Last Taken Type Aspirin 81 mg PO DAILY 03/18/20 08/27/20 Unknown History Furosemide [Lasix TAB] 20 mg PO DAILY 03/18/20 08/27/20 Unknown History Gabapentin 300 mg PO BID 03/18/20 08/27/20 Unknown History Losartan/Hydrochlorothiazide 100 mg PO DAILY 03/18/20 08/27/20 Unknown History [Losartan-Hctz 100-25 mg Tab] Metoprolol Tartrate [Lopressor] 100 mg PO BID 03/18/20 08/27/20 Unknown History Pravastatin 10 mg PO DAILY 03/18/20 08/27/20 Unknown History Benzonatate [Tessalon Perles] 100 mg PO Q8HR #21 capsule 03/19/20 08/27/20 Unknown Rx Arformoterol Nebu [Brovana Nebu] 15 mcg IH Q12HRT 30 Days 08/26/20 08/27/20 Unknown Rx predniSONE [Deltasone] 40 mg PO DAILY #5 tablet 08/26/20 08/27/20 Unknown Rx ED Review of Systems ROS: Stated complaint: DIFF BREATHING Other details as noted in HPI Comment: All other systems reviewed and negative Constitutional: weakness. denies: chills, fever Eyes: denies: eye pain, vision change ENT: denies: ear pain, throat pain Respiratory: shortness of breath. denies: cough Cardiovascular: denies: chest pain, edema Gastrointestinal: denies: abdominal pain, vomiting Genitourinary: denies: dysuria, discharge Musculoskeletal: denies: back pain, arthralgia Skin: denies: rash, lesions Neurological: weakness. denies: headache, numbness Physical Exam - Physical Exam Physical Exam: GENERAL: The patient is well-developed well-nourished. HENT: Normocephalic. Atraumatic. Patient has moist mucous membranes. EYES: Extraocular motions are intact. No nystagmus. NECK: Supple. Trachea is midline. Trach and collar in place. CHEST/LUNGS: Slightly coarse breath sounds. There is some tachypnea. No cough heard during examination. HEART/CARDIOVASCULAR: Regular. There is no tachycardia. There is no murmur. ABDOMEN: Abdomen is soft, nontender. Patient has normal bowel sounds. SKIN: Skin is warm and dry. NEURO: The patient is awake, alert, and cooperative. There is normal speech. Patient has some visible weakness to the bilateral lower extremities with leg extension off of the gurney. Dorsi plantarflexion is 5 out of 5 for muscle strength bilaterally. MUSCULOSKELETAL: There is no tenderness or deformity. - ABG Interpretation Ph: 7.409 PCO2: 48 PO2: 190 Bicarbonate: 30 Interpretation: respiratory acidosis, metabolic alkalosis ED Medical Decision Making - Lab Data Result diagrams: 08/27/20 13:52 08/27/20 13:52 Lab Results 08/27/20 08/27/20 08/27/20 Range/Units 13:52 13:52 13:52 WBC 24.0 H (4.5-11.0) K/mm3 RBC 4.79 (3.65-5.03) M/mm3 Hgb 12.6 (10.1-14.3) gm/dl Hct 40.3 (30.3-42.9) % MCV 84 (79-97) fl MCH 26 L (28-32) pg MCHC 31 (30-34) % RDW 15.1 (13.2-15.2) % Plt Count 129 L (140-440) K/mm3 Add Manual Diff Complete Total Counted 100 Seg Neuts % (Manual) 85.0 H (40.0-70.0) % Lymphocytes % (Manual) 8.0 L (13.4-35.0) % Monocytes % (Manual) 7.0 (0.0-7.3) % Nucleated RBC % Not Reportable Seg Neutrophils # Man 20.4 H (1.8-7.7) K/mm3 Band Neutrophils # 0.0 K/mm3 Lymphocytes # (Manual) 1.9 (1.2-5.4) K/mm3 Abs React Lymphs (Man) 0.0 K/mm3 Monocytes # (Manual) 1.7 H (0.0-0.8) K/mm3 Eosinophils # (Manual) 0.0 (0.0-0.4) K/mm3 Basophils # (Manual) 0.0 (0.0-0.1) K/mm3 Metamyelocytes # 0.0 K/mm3 Myelocytes # 0.0 K/mm3 Promyelocytes # 0.0 K/mm3 Blast Cells # 0.0 K/mm3 WBC Morphology Not Reportable Hypersegmented Neuts Not Reportable Hyposegmented Neuts Not Reportable Hypogranular Neuts Not Reportable Smudge Cells Not Reportable Toxic Granulation Not Reportable Toxic Vacuolation Not Reportable Dohle Bodies Not Reportable Pelger-Huet Anomaly Not Reportable Vita Rods Not Reportable Platelet Estimate Consistent w auto Clumped Platelets Not Reportable Plt Clumps, EDTA Not Reportable Large Platelets Few Giant Platelets Not Reportable Platelet Satelliting Not Reportable Plt Morphology Comment Not Reportable RBC Morphology Not Reportable Dimorphic RBCs Not Reportable Polychromasia Not Reportable Hypochromasia Not Reportable Poikilocytosis Not Reportable Anisocytosis 1+ Microcytosis Not Reportable Macrocytosis Not Reportable Spherocytes Not Reportable Pappenheimer Bodies Not Reportable Sickle Cells Not Reportable Target Cells Not Reportable Tear Drop Cells Not Reportable Ovalocytes Not Reportable Helmet Cells Not Reportable Hanley-Bondurant Bodies Not Reportable Hopkins Rings Not Reportable Ji Cells Not Reportable Bite Cells Not Reportable Crenated Cell Not Reportable Elliptocytes Not Reportable Acanthocytes (Spur) Not Reportable Rouleaux Not Reportable Hemoglobin C Crystals Not Reportable Schistocytes Not Reportable Malaria parasites Not Reportable Erick Bodies Not Reportable Hem Pathologist Commnt No PT 14.1 (12.2-14.9) Sec. INR 1.11 (0.87-1.13) ABG pH (7.350-7.450) pH Units ABG pCO2 mm Hg ABG pO2 (80.0-90.0) mm Hg ABG HCO3 (20.0-26.0) mmol/L ABG O2 Saturation (95.0-99.0) % ABG O2 Content (0.0-44) ABG Base Excess (-2.0-3.0) mmol/L ABG Hemoglobin (12.0-16.0) gm/dl ABG Carboxyhemoglobin (0.0-5.0) % ABG Methemoglobin (0.0-1.5) % Oxyhemoglobin (95.0-99.0) % FiO2 % Sodium 145 (137-145) mmol/L Potassium 5.7 H (3.6-5.0) mmol/L Chloride 105.6 (98-107) mmol/L Carbon Dioxide 27 (22-30) mmol/L Anion Gap 18 mmol/L BUN 55 H (7-17) mg/dL Creatinine 1.3 H (0.6-1.2) mg/dL Estimated GFR 49 ml/min BUN/Creatinine Ratio 42 % Glucose 207 H (65-100) mg/dL Calcium 9.4 (8.4-10.2) mg/dL Total Bilirubin 0.60 (0.1-1.2) mg/dL AST 21 (5-40) units/L ALT 73 H (7-56) units/L Alkaline Phosphatase 84 (35-129) units/L Troponin T 0.011 (0.00-0.029) ng/mL NT-Pro-B Natriuret Pep (0-900) pg/mL Total Protein 6.3 (6.3-8.2) g/dL Albumin 3.8 L (3.9-5) g/dL Albumin/Globulin Ratio 1.5 % TSH (0.270-4.200) mlU/mL Free T4 (0.76-1.46) ng/dL 08/27/20 08/27/20 08/27/20 Range/Units 13:52 13:52 14:15 WBC (4.5-11.0) K/mm3 RBC (3.65-5.03) M/mm3 Hgb (10.1-14.3) gm/dl Hct (30.3-42.9) % MCV (79-97) fl MCH (28-32) pg MCHC (30-34) % RDW (13.2-15.2) % Plt Count (140-440) K/mm3 Add Manual Diff Total Counted Seg Neuts % (Manual) (40.0-70.0) % Lymphocytes % (Manual) (13.4-35.0) % Monocytes % (Manual) (0.0-7.3) % Nucleated RBC % Seg Neutrophils # Man (1.8-7.7) K/mm3 Band Neutrophils # K/mm3 Lymphocytes # (Manual) (1.2-5.4) K/mm3 Abs React Lymphs (Man) K/mm3 Monocytes # (Manual) (0.0-0.8) K/mm3 Eosinophils # (Manual) (0.0-0.4) K/mm3 Basophils # (Manual) (0.0-0.1) K/mm3 Metamyelocytes # K/mm3 Myelocytes # K/mm3 Promyelocytes # K/mm3 Blast Cells # K/mm3 WBC Morphology Hypersegmented Neuts Hyposegmented Neuts Hypogranular Neuts Smudge Cells Toxic Granulation Toxic Vacuolation Dohle Bodies Pelger-Huet Anomaly Vita Rods Platelet Estimate Clumped Platelets Plt Clumps, EDTA Large Platelets Giant Platelets Platelet Satelliting Plt Morphology Comment RBC Morphology Dimorphic RBCs Polychromasia Hypochromasia Poikilocytosis Anisocytosis Microcytosis Macrocytosis Spherocytes Pappenheimer Bodies Sickle Cells Target Cells Tear Drop Cells Ovalocytes Helmet Cells Hanley-Bondurant Bodies Hopkins Rings Hannibal Cells Bite Cells Crenated Cell Elliptocytes Acanthocytes (Spur) Rouleaux Hemoglobin C Crystals Schistocytes Malaria parasites Erick Bodies Hem Pathologist Commnt PT (12.2-14.9) Sec. INR (0.87-1.13) ABG pH 7.409 (7.350-7.450) pH Units ABG pCO2 48.9 mm Hg ABG pO2 190.1 H (80.0-90.0) mm Hg ABG HCO3 30.3 H (20.0-26.0) mmol/L ABG O2 Saturation 99.2 H (95.0-99.0) % ABG O2 Content 16.4 (0.0-44) ABG Base Excess 4.8 H (-2.0-3.0) mmol/L ABG Hemoglobin 11.7 L (12.0-16.0) gm/dl ABG Carboxyhemoglobin 1.3 (0.0-5.0) % ABG Methemoglobin 0.5 (0.0-1.5) % Oxyhemoglobin 97.4 (95.0-99.0) % FiO2 50 % Sodium (137-145) mmol/L Potassium (3.6-5.0) mmol/L Chloride (98-107) mmol/L Carbon Dioxide (22-30) mmol/L Anion Gap mmol/L BUN (7-17) mg/dL Creatinine (0.6-1.2) mg/dL Estimated GFR ml/min BUN/Creatinine Ratio % Glucose (65-100) mg/dL Calcium (8.4-10.2) mg/dL Total Bilirubin (0.1-1.2) mg/dL AST (5-40) units/L ALT (7-56) units/L Alkaline Phosphatase (35-129) units/L Troponin T (0.00-0.029) ng/mL NT-Pro-B Natriuret Pep 78723 H (0-900) pg/mL Total Protein (6.3-8.2) g/dL Albumin (3.9-5) g/dL Albumin/Globulin Ratio % TSH 0.152 L (0.270-4.200) mlU/mL Free T4 (0.76-1.46) ng/dL 08/27/20 Range/Units 15:08 WBC (4.5-11.0) K/mm3 RBC (3.65-5.03) M/mm3 Hgb (10.1-14.3) gm/dl Hct (30.3-42.9) % MCV (79-97) fl MCH (28-32) pg MCHC (30-34) % RDW (13.2-15.2) % Plt Count (140-440) K/mm3 Add Manual Diff Total Counted Seg Neuts % (Manual) (40.0-70.0) % Lymphocytes % (Manual) (13.4-35.0) % Monocytes % (Manual) (0.0-7.3) % Nucleated RBC % Seg Neutrophils # Man (1.8-7.7) K/mm3 Band Neutrophils # K/mm3 Lymphocytes # (Manual) (1.2-5.4) K/mm3 Abs React Lymphs (Man) K/mm3 Monocytes # (Manual) (0.0-0.8) K/mm3 Eosinophils # (Manual) (0.0-0.4) K/mm3 Basophils # (Manual) (0.0-0.1) K/mm3 Metamyelocytes # K/mm3 Myelocytes # K/mm3 Promyelocytes # K/mm3 Blast Cells # K/mm3 WBC Morphology Hypersegmented Neuts Hyposegmented Neuts Hypogranular Neuts Smudge Cells Toxic Granulation Toxic Vacuolation Dohle Bodies Pelger-Huet Anomaly Vita Rods Platelet Estimate Clumped Platelets Plt Clumps, EDTA Large Platelets Giant Platelets Platelet Satelliting Plt Morphology Comment RBC Morphology Dimorphic RBCs Polychromasia Hypochromasia Poikilocytosis Anisocytosis Microcytosis Macrocytosis Spherocytes Pappenheimer Bodies Sickle Cells Target Cells Tear Drop Cells Ovalocytes Helmet Cells Hanley-Bondurant Bodies Hopkins Rings Ji Cells Bite Cells Crenated Cell Elliptocytes Acanthocytes (Spur) Rouleaux Hemoglobin C Crystals Schistocytes Malaria parasites Erick Bodies Hem Pathologist Commnt PT (12.2-14.9) Sec. INR (0.87-1.13) ABG pH (7.350-7.450) pH Units ABG pCO2 mm Hg ABG pO2 (80.0-90.0) mm Hg ABG HCO3 (20.0-26.0) mmol/L ABG O2 Saturation (95.0-99.0) % ABG O2 Content (0.0-44) ABG Base Excess (-2.0-3.0) mmol/L ABG Hemoglobin (12.0-16.0) gm/dl ABG Carboxyhemoglobin (0.0-5.0) % ABG Methemoglobin (0.0-1.5) % Oxyhemoglobin (95.0-99.0) % FiO2 % Sodium (137-145) mmol/L Potassium (3.6-5.0) mmol/L Chloride (98-107) mmol/L Carbon Dioxide (22-30) mmol/L Anion Gap mmol/L BUN (7-17) mg/dL Creatinine (0.6-1.2) mg/dL Estimated GFR ml/min BUN/Creatinine Ratio % Glucose (65-100) mg/dL Calcium (8.4-10.2) mg/dL Total Bilirubin (0.1-1.2) mg/dL AST (5-40) units/L ALT (7-56) units/L Alkaline Phosphatase (35-129) units/L Troponin T (0.00-0.029) ng/mL NT-Pro-B Natriuret Pep (0-900) pg/mL Total Protein (6.3-8.2) g/dL Albumin (3.9-5) g/dL Albumin/Globulin Ratio % TSH (0.270-4.200) mlU/mL Free T4 0.94 (0.76-1.46) ng/dL - EKG Data -: EKG Interpreted by Me EKG shows normal: sinus rhythm, axis, intervals, QRS complexes, ST-T waves Rate: bradycardia (50 bpm) - EKG Data When compared to previous EKG there are: no significant change Interpretation: unchanged when compared t (08/17/20) - Radiology Data Radiology results: report reviewed, image reviewed interpreted by me: Chest x-ray shows elevation of the left hemidiaphragm with some bowel gas underneath. No obvious pneumonia. No pneumothorax. CT HEAD WITHOUT CONTRAST INDICATION / CLINICAL INFORMATION: weakness. TECHNIQUE: All CT scans at this location are performed using CT dose reduction for ALARA by means of automated exposure control. COMPARISON: CT 08/17/2020 FINDINGS: HEMORRHAGE: No evidence of intracranial hemorrhage or extra-axial fluid collection. EXTRA-AXIAL SPACES: Cortical sulci and sylvian fissures are enlarged reflecting a degree of parenchymal volume loss which is within normal limits for the patient's age of 70 years. Basilar cisterns have an unremarkable appearance. VENTRICULAR SYSTEM: The third and lateral ventricles are mildly enlarged reflecting presence of age related parenchymal volume loss. CEREBRAL PARENCHYMA: Subtle periventricular and deep white matter lucency is observed. This is probably secondary to mild microvascular ischemic change. There is no indication of recent infarction. No areas of encephalomalacia are identified. MIDLINE SHIFT OR HERNIATION: There is no mass effect. CEREBELLUM / BRAINSTEM: Brainstem has an unremarkable appearance. Age related cerebellar atrophy is noted. MIDLINE STRUCTURES:Pituitary gland has an unremarkable appearance. No abnormalities are seen in the pineal region. INTRACRANIAL VESSELS:Calcified atherosclerotic plaque is present along the course of the cavernous segments of both internal carotid arteries. Similar findings are seen at the distal vertebral arteries. ORBITS: visualized portions of the orbits have an unremarkable appearance. SOFT TISSUES of HEAD: No significant abnormality. CALVARIUM: Evaluation of bone windows reveals no abnormalities. PARANASAL SINUSES / MASTOID AIR CELLS: Paranasal sinuses are free from inflammatory mucosal disease. Mastoid air cells are normally pneumatized. IMPRESSION: 1. Mild involutional changes of parenchymal volume loss and microvascular ischemia. 2. No acute intracranial abnormality. No detrimental interval change. - Medical Decision Making This patient initially presented with the complaint of shortness of breath and was found to have a pulse ox of about 80%. The inner cannula of the patient's trach appeared very clogged. Once this was cleaned by RT and the patient was given supplemental oxygen by a trach tent she appeared to improve. An ABG was done that showed a mild increase in her PCO2 but no hypoxemia by this time. Chest x-ray did not show any pneumonia, pleural effusions, pneumothorax, or any other acute process. The patient also complained of bilateral lower extremity weakness and is no longer able to stand and walk around since she was discharged from the hospital yesterday. The patient says that she was assisted inside of her house by a neighbor but ended up on the floor over the past 24 hours. For this reason I d id a CT scan of the head without contrast that did not show any hemorrhage, large vessel occlusion, or any other acute process. Labs shows a leukocytosis of 24,000. This may be secondary to the patient's use of steroids. The patient is afebrile. No focus of infection has been found on examination or imaging at this time. Patient also has an elevated proBNP. The patient's respiratory issues may have been secondary to her occluded tracheostomy inner cannula, but there also may be some level of a COPD exacerbation. Of greater concern is the patient's weakness that is keeping her from doing her ADLs. The patient will be admitted to the hospital for further evaluation and treatment and was accepted for admission by the hospitalist, Dr. Puente. Critical Care Time: No Critical care attestation.: If time is entered above; I have spent that time in minutes in the direct care of this critically ill patient, excluding procedure time. ED Disposition Clinical Impression: Respiratory distress, Tracheostomy care, Inability to walk, Weakness Hypertension Qualifiers: Hypertension type: essential hypertension Qualified Code(s): I10 - Essential (primary) hypertension Disposition: OP ADMIT IP TO THIS HOSP Is pt being admited?: Yes Condition: Serious Time of Disposition: 20:38
--- NOTE | 2020-08-27 14:02 | XRay Report ---
CHEST 1 VIEW INDICATION: SOB COMPARISON: 08/19/2020 FINDINGS: SUPPORT DEVICES: Tracheostomy good position. HEART / MEDIASTINUM: No significant abnormality. LUNGS / PLEURA: Persistent eventration-elevation left hemidiaphragm. No evidence of consolidation or atelectasis No pneumothorax. ADDITIONAL FINDINGS: IMPRESSION: 1. No acute cardiopulmonary disease Signer Name: Srini Rubio MD Signed: 08/27/2020 1:58 PM Workstation Name: [id number]
[2020-08-27 14:23] LABS: ABG Base Excess 4.8 mmol/L (-2.0-3.0); ABG HCO3 30.3 mmol/L (20.0-26.0); ABG Methemoglobin 0.5 % (0.0-1.5); ABG Oxygen Saturation 99.2 % (95.0-99.0); ABG PCO2 48.9 mm Hg; ABG PH 7.409 pH Units (7.350-7.450); ABG PO2 190.1 mm Hg (80.0-90.0)
[2020-08-27 14:24] LABS: Hematocrit 40.3 % (30.3-42.9); Hemoglobin 12.6 gm/dl (10.1-14.3); Mean Corpuscular HGB Conc 31 % (30-34); Mean Corpuscular Volume 84 fl (79-97); Platelet Count 129 K/mm3 (140-440); Red Blood Count 4.79 M/mm3 (3.65-5.03); Red Cell Distribution Width 15.1 % (13.2-15.2)
[2020-08-27 14:34] LABS: INR 1.11 (0.87-1.13)
[2020-08-27 14:50] LABS: Albumin 3.8 g/dL (3.9-5); Calcium 9.4 mg/dL (8.4-10.2)
[2020-08-27 14:55] LABS: Total Cells Counted 100
[2020-08-27 14:56] LABS: Anisocytosis 1+; Large Platelets Few; Platelet Estimate Consistent w Auto
--- NOTE | 2020-08-27 18:00 | Cat Scan Report ---
CT HEAD WITHOUT CONTRAST INDICATION / CLINICAL INFORMATION: weakness. TECHNIQUE: All CT scans at this location are performed using CT dose reduction for ALARA by means of automated e xposure control. COMPARISON: CT 08/17/2020 FINDINGS: HEMORRHAGE: No evidence of intracranial hemorrhage or extra-axial fluid collection. EXTRA-AXIAL SPACES: Cortical sulci and sylvian fissures are enlarged reflecting a degree of parenchym al volume loss which is within normal limits for the patient's age of 70 years. Basilar cisterns have an unremarkable appearance. VENTRICULAR SYSTEM: The third and lateral ventricles are mildly enlarged reflecting presence of age r elated parenchymal volume loss. CEREBRAL PARENCHYMA: Subtle periventricular and deep white matter lucency is observed. This is probab ly secondary to mild microvascular ischemic change. There is no indication of recent infarction. No a reas of encephalomalacia are identified. MIDLINE SHIFT OR HERNIATION: There is no mass effect. CEREBELLUM / BRAINSTEM: Brainstem has an unremarkable appearance. Age related cerebellar atrophy is n oted. MIDLINE STRUCTURES:Pituitary gland has an unremarkable appearance. No abnormalities are seen in the p ineal region. INTRACRANIAL VESSELS:Calcified atherosclerotic plaque is present along the course of the cavernous se gments of both internal carotid arteries. Similar findings are seen at the distal vertebral arteries. ORBITS: visualized portions of the orbits have an unremarkable appearance. SOFT TISSUES of HEAD: No significant abnormality. CALVARIUM: Evaluation of bone windows reveals no abnormalities. PARANASAL SINUSES / MASTOID AIR CELLS: Paranasal sinuses are free from inflammatory mucosal disease. Mastoid air cells are normally pneumatized. IMPRESSION: 1. Mild involutional changes of parenchymal volume loss and microvascular ischemia. 2. No acute intracranial abnormality. No detrimental interval change. Signer Name: Carlos Pride MD Signed: 08/27/2020 5:56 PM Workstation Name: [id number]
[2020-08-27] MEDS ORDERED: ONDANSETRON 4 MG/2 ML INJ IV PRN (19:25)
[2020-08-27] MEDS ORDERED: ACETAMINOPHEN 325 MG TAB PO PRN (19:25)
--- NOTE | 2020-08-27 19:25 | History and Physical Report ---
History of Present Illness Chief complaint: I cant breathe, and I cannot walk and get around the house History of present illness: 70 YO Female with HTN, DM, Obesity Hypoventilation Syndrome, Chronic Respiratory Failure with trach in place on supplemental Oxygen, Vascular Dementia, Cardiomyopathy, Debility, COPD presents to ED for evaluation. Patient reports "I cannot breathe and I cannot walk". Patient states that she experienced sudden onset shortness of breath today. Patient also reports weakness and inability to ambulate. Patient knowledges decreased exercise tolerance, dyspnea on exertion, as well as dyspnea at rest. EMS was notified and upon arrival the patient was found to be in distress and placed on supplemental oxygen and transported to [facility] for further care and evaluation of the aforementioned symptoms. The patient was seen and evaluated in the emergency department. All lab and imaging studies reviewed. Patient found to have a pulse oximetry of 80% on room air which is consistent with acute on chronic hypoxemic respiratory failure. Patient underwent replacement of the inner cannula of her tracheostomy with mild improvement in symptoms. Patient also found to have symptoms consistent with CHF decompensation. Patient admitted to telemetry and initiated on CHF protocol. Cardiology team consulted in ED. Echocardiogram ordered and is pending at time of admission. Patient denies fever, chills, chest pain, palpitation, productive cough, skin rash, recent ill contacts, or known exposure to COVID-19. Prior admission on 08/17/2020 reviewed. All medication listed at time of admission has been reconciled. Advanced care planning conducted in ED. Past History Past Medical History: COPD, diabetes, hypertension, other (See HPI) Past Surgical History: Other ( KNEE REPLACEMENTS, pituitary tumor resection, tracheostomy placement) Social history: single. denies: smoking, alcohol abuse, prescription drug abuse Family history: diabetes, hypertension Medications and Allergies Allergies Allergy/AdvReac Type Severity Reaction Status Date / Time celecoxib [From Celebrex] Allergy Unknown Verified 08/27/20 13:30 Home Medications Medication Instructions Recorded Confirmed Last Taken Type Aspirin 81 mg PO DAILY 03/18/20 08/27/20 Unknown History Furosemide [Lasix TAB] 20 mg PO DAILY 03/18/20 08/27/20 Unknown History Gabapentin 300 mg PO BID 03/18/20 08/27/20 Unknown History Losartan/Hydrochlorothiazide 100 mg PO DAILY 03/18/20 08/27/20 Unknown History [Losartan-Hctz 100-25 mg Tab] Metoprolol Tartrate [Lopressor] 100 mg PO BID 03/18/20 08/27/20 Unknown History Pravastatin 10 mg PO DAILY 03/18/20 08/27/20 Unknown History Benzonatate [Tessalon Perles] 100 mg PO Q8HR #21 capsule 03/19/20 08/27/20 Unknown Rx Arformoterol Nebu [Brovana Nebu] 15 mcg IH Q12HRT 30 Days 08/26/20 08/27/20 Unknown Rx predniSONE [Deltasone] 40 mg PO DAILY #5 tablet 08/26/20 08/27/20 Unknown Rx Review of Systems Constitutional: no weight loss, no weight gain, no fever, no chills Ears, nose, mouth and throat: no ear pain, no ear discharge, no tinnitis, no nose pain, no nasal congestion Cardiovascular: shortness of breath, dyspnea on exertion, decreased exercise tolerance, no chest pain Respiratory: no cough, no cough with sputum, no excessive sputum, no hemoptysis Gastrointestinal: no abdominal pain, no nausea, no diarrhea, no constipation, no change in bowel habits, no hematemesis Genitourinary Female: no pelvic pain, no flank pain, no dysuria, no urinary frequency, no urgency Rectal: no pain, no incontinence, no bleeding Musculoskeletal: no neck stiffness, no neck pain, no shooting arm pain, no arm numbness/tingling, no low back pain, no shooting leg pain Integumentary: no rash, no pruritis, no redness, no sores, no wounds Neurological: no transient paralysis, no paralysis, no parathesias, no numbness, no tingling, no seizures, no syncope, no tremors Psychiatric: no anxiety, no change in sleep habits, no sleep disturbances, no hypersomnia, no change in appetite, no change in libido, no suicidal ideation Endocrine: no cold intolerance, no polyphagia, no polydipsia, no excessive sweating Hematologic/Lymphatic: no easy bruising, no easy bleeding, no lymphadenopathy Allergic/Immunologic: no allergic rhinitis, no anaphylaxis, no angioedema Exam - Constitutional Vitals: Temp Pulse Resp BP Pulse Ox 49 L 15 162/54 93 08/27/20 18:30 08/27/20 18:30 08/27/20 18:30 08/27/20 18:35 General appearance: Present: mild distress, obese - EENT Eyes: Present: PERRL ENT: hearing intact, clear oral mucosa - Neck Neck: Present: supple, normal ROM - Respiratory Respiratory effort: normal Respiratory: bilateral: diminished - Cardiovascular Heart Sounds: Present: S1 & S2. Absent: rub, click - Extremities Extremities: pulses symmetrical, No edema Peripheral Pulses: within normal limits - Abdominal General gastrointestinal: Present: soft, non-tender, non-distended, normal bowel sounds Female genitourinary: Present: normal - Integumentary Integumentary: Present: clear, warm, dry - Musculoskeletal Musculoskeletal: gait normal, strength equal bilaterally - Psychiatric Psychiatric: appropriate mood/affect, intact judgment & insight - Neurologic Neurologic: CNII-XII intact, moves all extremities HEART Score - HEART Score Troponin: Troponin T 0.011 ng/mL (0.00-0.029) 08/27/20 13:52 Results - Labs CBC & Chem 7: 08/27/20 13:52 08/27/20 13:52 Labs: Abnormal lab results 08/27/20 08/27/20 08/27/20 Range/Units 13:52 13:52 13:52 WBC 24.0 H (4.5-11.0) K/mm3 MCH 26 L (28-32) pg Plt Count 129 L (140-440) K/mm3 Seg Neuts % (Manual) 85.0 H (40.0-70.0) % Lymphocytes % (Manual) 8.0 L (13.4-35.0) % Seg Neutrophils # Man 20.4 H (1.8-7.7) K/mm3 Monocytes # (Manual) 1.7 H (0.0-0.8) K/mm3 ABG pO2 (80.0-90.0) mm Hg ABG HCO3 (20.0-26.0) mmol/L ABG O2 Saturation (95.0-99.0) % ABG Base Excess (-2.0-3.0) mmol/L ABG Hemoglobin (12.0-16.0) gm/dl Potassium 5.7 H (3.6-5.0) mmol/L BUN 55 H (7-17) mg/dL Creatinine 1.3 H (0.6-1.2) mg/dL Glucose 207 H (65-100) mg/dL ALT 73 H (7-56) units/L NT-Pro-B Natriuret Pep 48152 H (0-900) pg/mL Albumin 3.8 L (3.9-5) g/dL TSH (0.270-4.200) mlU/mL 08/27/20 08/27/20 Range/Units 13:52 14:15 WBC (4.5-11.0) K/mm3 MCH (28-32) pg Plt Count (140-440) K/mm3 Seg Neuts % (Manual) (40.0-70.0) % Lymphocytes % (Manual) (13.4-35.0) % Seg Neutrophils # Man (1.8-7.7) K/mm3 Monocytes # (Manual) (0.0-0.8) K/mm3 ABG pO2 190.1 H (80.0-90.0) mm Hg ABG HCO3 30.3 H (20.0-26.0) mmol/L ABG O2 Saturation 99.2 H (95.0-99.0) % ABG Base Excess 4.8 H (-2.0-3.0) mmol/L ABG Hemoglobin 11.7 L (12.0-16.0) gm/dl Potassium (3.6-5.0) mmol/L BUN (7-17) mg/dL Creatinine (0.6-1.2) mg/dL Glucose (65-100) mg/dL ALT (7-56) units/L NT-Pro-B Natriuret Pep (0-900) pg/mL Albumin (3.9-5) g/dL TSH 0.152 L (0.270-4.200) mlU/mL Assessment and Plan - Patient Problems (1) Acute hypoxemic respiratory failure Current Visit: Yes Status: Acute Plan to address problem: Supplemental oxygen, pulse oximetry, chest x-ray, CT scan chest, replacement of tracheostomy inner cannula, (2) CHF (congestive heart failure) Current Visit: Yes Status: Acute Qualifiers: Heart failure type: systolic Heart failure chronicity: acute Qualified Code(s): I50.21 - Acute systolic (congestive) heart failure Plan to address problem: Strict I/O, monitor urine output every shift, daily weight, afterload reduction, blood pressure control, echocardiogram ordered and pending at time of admission, cardiology team consulted, thyroid panel, magnesium level. BNP. (3) Diabetes Current Visit: Yes Status: Acute Plan to address problem: Sliding-scale insulin therapy, Accu-Chek, hypoglycemia protocol, (4) Obesity hypoventilation syndrome Current Visit: Yes Status: Acute Plan to address problem: Balanced diet, increase physical activity at discharge, supportive care. (5) Hypertension Current Visit: Yes Status: Acute Qualifiers: Hypertension type: essential hypertension Qualified Code(s): I10 - Essential (primary) hypertension Plan to address problem: Monitor BP every shift, continue medical management (6) Debility Current Visit: Yes Status: Acute Plan to address problem: Physical therapy consulted (7) DVT prophylaxis Current Visit: Yes Status: Acute Plan to address problem: SCD to bilateral lower extremities while in bed, prophylactic anticoagulation (8) Advance care planning Current Visit: Yes Status: Acute Plan to address problem: Disease education conducted, care plan discussed, prognosis discussed, diagnosis discussed, patient knowledges understanding and agreement with care plan, +30 minutes. Discussed possible residential home facility placement. Patient acknowledges understanding and agreement with residential facility placement. Case management consulted.
[2020-08-27] MEDS: ARFORMOTEROL 15 MCG/2 ML NEBU IH SCH (20:31)
[2020-08-27 20:59] LABS: Free T4 (Free Thyroxine) 0.94 ng/dL (0.76-1.46)
[2020-08-27] MEDS ORDERED: NON-FORMULARY EACH (Gabapentin 300 MG) PO SCH (22:00)
[2020-08-27] MEDS: HEPARIN 5,000 UNIT/1 ML VIAL SUB-Q SCH (22:32)
[2020-08-27] MEDS: GABAPENTIN 300 MG CAP PO SCH (22:32)
[2020-08-27] MEDS: BENZONATATE 100 MG CAP PO SCH (22:32)
[2020-08-28] MEDS: BENZONATATE 100 MG CAP PO SCH ×3 (06:23→22:22)
[2020-08-28] MEDS: ARFORMOTEROL 15 MCG/2 ML NEBU IH SCH ×2 (09:07→20:37)
--- NOTE | 2020-08-28 09:22 | Electrocardiograph Report ---
[facility] Test Date: 2020-08-27 Test Time: 14:41:57 Pat Name: RAMAKRISHNA DUKES Department: Room: A463 Gender: F [employer] Merchandiser: GORGE : 1950 Requested By: REINIER ALTAMIRANO Order Number: [id number] Reading MD: Magdalena Chino Measurements Intervals [place] Rate: 50 P: 42 ID: [id number] QRS: 18 QRSD: 80 T: 30 QT: 515 QTc: 469 Interpretive Statements Sinus bradycardia No previous ECG available for comparison Electronically Signed On 08-28-2020 6:22:08 PDT by Magdalena Chino
[2020-08-28] MEDS ORDERED: PRAVASTATIN 10 MG PO SCH (10:00)
[2020-08-28] MEDS ORDERED: FUROSEMIDE 20 MG TAB PO SCH (10:00)
[2020-08-28] MEDS ORDERED: NON-FORMULARY EACH (Aspirin 81 MG) PO SCH (10:00)
--- NOTE | 2020-08-28 11:29 | Consultation ---
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 She is previously unknown to our practice, does not see a pot feeder regularly. She presented with c/o "I cannot breathe and I cannot walk". Patient states that she experienced sudden onset shortness of breath on the day presentation. Patient also reports weakness and inability to ambulate. Patient acknowledges decreased exercise tolerance, dyspnea on exertion, as well as dyspnea at rest. EMS was notified and upon arrival the patient was found to be in distress and placed on supplemental oxygen and transported to [facility]. Of note, pt was discharged from [facility] on 08/26/2020 following eval/management of A/C respiratory failure and pseudomonal pneumonia, COVID-19 testing 08/18/2020 was negative. Pt says that the inner cannula to her tracheostomy was replaced during last admission and the cannula did not match up with the supplies that she has at home. Patient subsequently underwent replacement of the inner cannula of her tracheostomy with some improvement in her symptoms. Past History Past Medical History: diabetes, hypertension, other (See HPI) Past Surgical History: Other ( KNEE REPLACEMENTS, pituitary tumor resection, tracheostomy placement) Social history: single. denies: smoking, alcohol abuse, prescription drug abuse Family history: diabetes, hypertension Medications and Allergies Allergies Allergy/AdvReac Type Severity Reaction Status Date / Time celecoxib [From Celebrex] Allergy Unknown Verified 08/27/20 13:30 Home Medications Medication Instructions Recorded Confirmed Last Taken Type Aspirin 81 mg PO DAILY 03/18/20 08/27/20 Unknown History Furosemide [Lasix TAB] 20 mg PO DAILY 03/18/20 08/27/20 Unknown History Gabapentin 300 mg PO BID 03/18/20 08/27/20 Unknown History Losartan/Hydrochlorothiazide 100 mg PO DAILY 03/18/20 08/27/20 Unknown History [Losartan-Hctz 100-25 mg Tab] Metoprolol Tartrate [Lopressor] 100 mg PO BID 03/18/20 08/27/20 Unknown History Pravastatin 10 mg PO DAILY 03/18/20 08/27/20 Unknown History Benzonatate [Tessalon Perles] 100 mg PO Q8HR #21 capsule 03/19/20 08/27/20 Unknown Rx Arformoterol Nebu [Brovana Nebu] 15 mcg IH Q12HRT 30 Days 08/26/20 08/27/20 Unknown Rx predniSONE [Deltasone] 40 mg PO DAILY #5 tablet 08/26/20 08/27/20 Unknown Rx Active Meds: Active Medications Acetaminophen (Acetaminophen 325 Mg Tab) 650 mg PO Q4H PRN PRN Reason: Pain MILD(1-3)/Fever >100.5/GARCIA Arformoterol Tartrate (Arformoterol 15 Mcg/2 Ml Nebu) 15 mcg IH Q12HRT [facility] Last Admin: 08/28/20 09:07 Dose: 15 mcg Documented by: Aspirin (Aspirin 81 Mg Tab Chew) 81 mg PO QDAY [facility] Benzonatate (Benzonatate 100 Mg Cap) 100 mg PO Q8HR [facility] Last Admin: 08/28/20 06:23 Dose: 100 mg Documented by: Furosemide (Furosemide 20 Mg Tab) 20 mg PO DAILY [facility] Gabapentin (Gabapentin 300 Mg Cap) 300 mg PO BID [facility] Last Admin: 08/27/20 22:32 Dose: 300 mg Documented by: Heparin Sodium (Porcine) (Heparin 5,000 Unit/1 Ml Vial) 5,000 unit SUB-Q Q12HR [facility] Last Admin: 08/27/20 22:32 Dose: 5,000 unit Documented by: Metoprolol Tartrate (Metoprolol Tartrate 100 Mg Tab) 100 mg PO BID [facility] Ondansetron HCl (Ondansetron 4 Mg/2 Ml Inj) 4 mg IV Q8H PRN PRN Reason: Nausea And Vomiting Pravastatin Sodium (Pravastatin 20 Mg Tab) 10 mg PO QHS [facility] Prednisone (Prednisone 20 Mg Tab) 40 mg PO DAILY [facility] Sodium Chloride (Sodium Chloride 0.9% 10 Ml Flush Syringe) 10 ml IV BID [facility] Sodium Chloride (Sodium Chloride 0.9% 10 Ml Flush Syringe) 10 ml IV PRN PRN PRN Reason: LINE FLUSH Review of Systems Constitutional: no weight loss, no weight gain, no fever, no chills, no sweats Ears, nose, mouth and throat: no ear pain, no nose pain, no sinus pressure, no sinus pain Cardiovascular: shortness of breath, dyspnea on exertion, decreased exercise tolerance, no chest pain, no palpitations, no rapid/irregular heart beat, no edema, no syncope, no lightheadedness, no leg edema Respiratory: shortness of breath, dyspnea on exertion, home oxygen, no cough, no congestion, no wheezing, no pain on inspiration Gastrointestinal: no abdominal pain, no nausea, no vomiting, no diarrhea, no constipation, no change in bowel habits Genitourinary Female: no pelvic pain, no flank pain, no dysuria, no urinary frequency, no urgency Musculoskeletal: no neck stiffness, no neck pain, no shooting arm pain, no arm numbness/tingling, no low back pain, no shooting leg pain Integumentary: no rash, no pruritis, no redness, no sores, no wounds Neurological: no head injury, no paralysis, no weakness, no parathesias, no numbness, no tingling, no seizures, no syncope Psychiatric: no anxiety Endocrine: no cold intolerance, no heat intolerance Hematologic/Lymphatic: no easy bruising Allergic/Immunologic: no urticaria Physical Examination Vital Signs Pulse BP Pulse Ox 52 L 168/68 97 08/27/20 13:55 08/27/20 13:55 08/27/20 13:55 General appearance: no acute distress HEENT: Positive: PERRL, Normocephaly, Mucus Membranes Moist Neck: Positive: neck supple, trachea midline Cardiac: Positive: Reg Rate and Rhythm, S1/S2 Lungs: Positive: Decreased Breath Sounds, Oxygen, Other (trach in situ) Neuro: Positive: Grossly Intact Abdomen: Negative: Tender Extremities: Present: Other (chronic BLE skin changes noted). Absent: edema Results 08/27/20 13:52 08/27/20 13:52 Cardiac Enzymes 08/27/20 Range/Units 13:52 AST 21 (5-40) units/L Coagulation 08/27/20 Range/Units 13:52 PT 14.1 (12.2-14.9) Sec. INR 1.11 (0.87-1.13) CBC 08/27/20 Range/Units 13:52 WBC 24.0 H (4.5-11.0) K/mm3 RBC 4.79 (3.65-5.03) M/mm3 Hgb 12.6 (10.1-14.3) gm/dl Hct 40.3 (30.3-42.9) % Plt Count 129 L (140-440) K/mm3 Comprehensive Metabolic Panel 08/27/20 Range/Units 13:52 Sodium 145 (137-145) mmol/L Potassium 5.7 H (3.6-5.0) mmol/L Chloride 105.6 (98-107) mmol/L Carbon Dioxide 27 (22-30) mmol/L BUN 55 H (7-17) mg/dL Creatinine 1.3 H (0.6-1.2) mg/dL Glucose 207 H (65-100) mg/dL Calcium 9.4 (8.4-10.2) mg/dL AST 21 (5-40) units/L ALT 73 H (7-56) units/L Alkaline Phosphatase 84 (35-129) units/L Total Protein 6.3 (6.3-8.2) g/dL Albumin 3.8 L (3.9-5) g/dL - Imaging and Cardiology Echo: pending EKG: report reviewed, image reviewed EKG interpretations - Telemetry EKG Rhythm: Sinus Rhythm - EKG Sinus rhythms and dysrhythmias: sinus rhythm Assessment and Plan Agree with present cardiac management. Await echocardiogram. Discharge planning per case management - pt lives with a roommate in a private house, home has stairs and pt reports she was unable to climb the stairs, thought she could manage at home after most recent discharge but feels now as though she cannot. She is requesting subacute rehabilitation placement at discharge. Will follow. The patient has been seen in conjunction with Dr. Martínez who agrees with the assessment and plan of care. - Patient Problems (1) Acute on chronic respiratory failure Current Visit: Yes Status: Acute (2) Malfunction of tracheostomy Current Visit: Yes Status: Acute (3) Asthma with exacerbation Current Visit: Yes Status: Acute (4) Acute heart failure with preserved ejection fraction (HFpEF) Current Visit: Yes Status: Acute (5) Hypertension Current Visit: Yes Status: Chronic Qualifiers: Hypertension type: essential hypertension Qualified Code(s): I10 - Essential (primary) hypertension (6) Type 2 diabetes mellitus Current Visit: Yes Status: Chronic Qualifiers: Diabetes mellitus detention insulin use: unspecified detention insulin use status (7) LAURA (acute kidney injury) Current Visit: Yes Status: Acute (8) Leukocytosis Current Visit: Yes Status: Acute (9) Thrombocytopenia Current Visit: Yes Status: Acute
[2020-08-28] MEDS: GABAPENTIN 300 MG CAP PO SCH ×2 (12:53→22:22)
[2020-08-28] MEDS: ASPIRIN 81 MG TAB CHEW PO SCH (12:54)
[2020-08-28] MEDS: predniSONE 20 MG TAB PO SCH (12:54)
[2020-08-28] MEDS: METOPROLOL TARTRATE 100 MG TAB PO SCH ×3 (12:55→22:22)
[2020-08-28] MEDS: HEPARIN 5,000 UNIT/1 ML VIAL SUB-Q SCH ×2 (12:56→22:22)
--- NOTE | 2020-08-28 12:56 | Progress Note ---
Assessment and Plan Acute on chronic hypoxemic respiratory failure -Patient has a trach in place, continue O2 supplement as needed -Ordered for CTA chest for possible PE, will follow the result CHF with preserved EF, chest x-ray shows no infiltrates or any acute change, cardiology consulted, will order 2D echo Diabetes mellitus type 2, Sliding-scale insulin therapy, Accu-Chek, hypoglycemia protocol, Hypertension, continue home meds Physical debility, patient requesting placement, rehabilitation case coordinator and PT consulted LAURA, vasomotor nephropathy -Creatinine currently at her baseline, will continue to monitor Hyperkalemia, likely due to LAURA we will repeat BMP today -Kayexalate and bicarbonate as needed Raynaud's phenomena/disease: We will place on low-dose calcium channel fidel, follow clinically DVT prophylaxis, Lovenox Daily clinical course: 08/28/20: patient was recently discharged after being treated for Pseudomonas pn eumonia. PT recommended home health before discharge. Patient lives alone with a roommate, home has stairs and patient reports that she is unable to take care of herself or climb the stair. She thought she could manage at home after most recent discharge but feels now as though she cannot. She is requesting subacute rehabilitation placement at discharge. manager forensic consulted for further place ment. Wait for 2D echocardiogram. patient on 10L O2 as O2 sat om pulse oxy showing low sat - which I believe not real as patient has possible [place] phenomena. will order for ABG and recommended RT to assess pulse ox with other site. Subjective Date of service: 08/28/20 Interval history: Patient seen and examined. Medical records and medication list reviewed. No acute event overnight noted by the RN. Patient on 10 L O2. Patient is tolerating diet. Does not appear to be in any distress, patient sitting at the side of the bed and eating Discussed plan of care at bedside with patient. Objective - Exam Narrative Exam: VITAL SIGNS: Reviewed. GENERAL: Awake, no acute distress HEAD: No signs of head trauma. EYES: Pupils are equal. Extraocular motions intact. MOUTH: Oropharynx is normal. NECK: No adenopathy, no JVD. Trach in place CHEST: Positive breath sounds bilaterally CARDIAC: normal S1 and S2, without murmurs, gallops, or rubs. ABDOMEN: Soft, non tender and non distended. MUSCULOSKELETAL: No joint effusion or tenderness NEUROLOGIC EXAM: Alert and oriented x3. No focal neurologic deficits Extremities no edema, cold SKIN: No obvious lesions - Constitutional Vitals: Vital Signs - 12hr 08/28/20 08/28/20 08/28/20 04:00 07:34 09:07 Temperature 97.5 F L 97.5 F L Pulse Rate 56 L 76 Pulse Rate [ Left Radial] Respiratory 18 Rate Blood Pressure 121/59 Blood Pressure 118/46 [Left] O2 Sat by Pulse 100 94 100 Oximetry O2 Sat by Pulse 100 Oximetry [ Assessment] 08/28/20 10:00 Temperature Pulse Rate Pulse Rate [ 59 L Left Radial] Respiratory 21 Rate Blood Pressure Blood Pressure [Left] O2 Sat by Pulse 99 Oximetry O2 Sat by Pulse Oximetry [ Assessment] - Labs CBC & Chem 7: 08/28/20 14:05 08/29/20 07:30 Labs: Abnormal lab results 08/27/20 08/27/20 08/27/20 Range/Units 13:52 13:52 13:52 WBC 24.0 H (4.5-11.0) K/mm3 MCH 26 L (28-32) pg Plt Count 129 L (140-440) K/mm3 Seg Neuts % (Manual) 85.0 H (40.0-70.0) % Lymphocytes % (Manual) 8.0 L (13.4-35.0) % Seg Neutrophils # Man 20.4 H (1.8-7.7) K/mm3 Monocytes # (Manual) 1.7 H (0.0-0.8) K/mm3 ABG pO2 (80.0-90.0) mm Hg ABG HCO3 (20.0-26.0) mmol/L ABG O2 Saturation (95.0-99.0) % ABG Base Excess (-2.0-3.0) mmol/L ABG Hemoglobin (12.0-16.0) gm/dl Potassium 5.7 H (3.6-5.0) mmol/L BUN 55 H (7-17) mg/dL Creatinine 1.3 H (0.6-1.2) mg/dL Glucose 207 H (65-100) mg/dL POC Glucose (70-105) mg/dL ALT 73 H (7-56) units/L NT-Pro-B Natriuret Pep 75783 H (0-900) pg/mL Albumin 3.8 L (3.9-5) g/dL TSH (0.270-4.200) mlU/mL 08/27/20 08/27/20 08/27/20 Range/Units 13:52 14:15 20:01 WBC (4.5-11.0) K/mm3 MCH (28-32) pg Plt Count (140-440) K/mm3 Seg Neuts % (Manual) (40.0-70.0) % Lymphocytes % (Manual) (13.4-35.0) % Seg Neutrophils # Man (1.8-7.7) K/mm3 Monocytes # (Manual) (0.0-0.8) K/mm3 ABG pO2 190.1 H (80.0-90.0) mm Hg ABG HCO3 30.3 H (20.0-26.0) mmol/L ABG O2 Saturation 99.2 H (95.0-99.0) % ABG Base Excess 4.8 H (-2.0-3.0) mmol/L ABG Hemoglobin 11.7 L (12.0-16.0) gm/dl Potassium (3.6-5.0) mmol/L BUN (7-17) mg/dL Creatinine (0.6-1.2) mg/dL Glucose (65-100) mg/dL POC Glucose (70-105) mg/dL ALT (7-56) units/L NT-Pro-B Natriuret Pep (0-900) pg/mL Albumin (3.9-5) g/dL TSH 0.152 L 0.207 L (0.270-4.200) mlU/mL 08/28/20 Range/Units 07:38 WBC (4.5-11.0) K/mm3 MCH (28-32) pg Plt Count (140-440) K/mm3 Seg Neuts % (Manual) (40.0-70.0) % Lymphocytes % (Manual) (13.4-35.0) % Seg Neutrophils # Man (1.8-7.7) K/mm3 Monocytes # (Manual) (0.0-0.8) K/mm3 ABG pO2 (80.0-90.0) mm Hg ABG HCO3 (20.0-26.0) mmol/L ABG O2 Saturation (95.0-99.0) % ABG Base Excess (-2.0-3.0) mmol/L ABG Hemoglobin (12.0-16.0) gm/dl Potassium (3.6-5.0) mmol/L BUN (7-17) mg/dL Creatinine (0.6-1.2) mg/dL Glucose (65-100) mg/dL POC Glucose 137 H (70-105) mg/dL ALT (7-56) units/L NT-Pro-B Natriuret Pep (0-900) pg/mL Albumin (3.9-5) g/dL TSH (0.270-4.200) mlU/mL HEART Score - HEART Score Troponin: Troponin T 0.011 ng/mL (0.00-0.029) 08/27/20 13:52
--- NOTE | 2020-08-28 13:16 | Cat Scan Report ---
CTA CHEST WITH CONTRAST INDICATION : Dyspnea. TECHNIQUE: Axial imaging performed through the chest, with contrast bolus timing set to maximize opa cification of the pulmonary arteries. Sagittal and coronal reformatted images. 3-plane MIP reformatte d images were obtained. All CT scans at this location are performed using CT dose reduction for ALAR A by means of automated exposure control. 60 mL of intravenous contrast administered. COMPARISON: None FINDINGS: Bolus: Contrast bolus timing is limited with poor opacification of the distal, small pulmonary arter ies. PTE: No central pulmonary embolus is detected. Mediastinum: Heart and great vessels appear normal. No pathologic mediastinal adenopathy. Tracheost grace is in position. Lungs: The left hemidiaphragm is elevated. Mild atelectatic changes are noted in both lower lung zon es. No evidence for infiltrate, pleural effusion or pneumothorax. Bones: Degenerative changes in the spine with nothing acute. Upper abdomen: There is an ill-defined mildly enhancing masslike lesion in the left renal sinus conc erning for neoplasm. IMPRESSION: Limited exam as described. No large central pulmonary embolus is detected. Atelectatic changes in the lower lung zones. Possible left renal mass. Further evaluation with CT abdomen pelvis with contrast is recommended. Signer Name: Mateo Alicia Jr, MD Signed: 08/28/2020 1:11 PM Workstation Name: [id number]
[2020-08-28 14:33] LABS: Hemoglobin 11.8 gm/dl (10.1-14.3); Mean Corpuscular HGB Conc 32 % (30-34); Mean Corpuscular Volume 84 fl (79-97); Red Blood Count 4.42 M/mm3 (3.65-5.03); Red Cell Distribution Width 15.5 % (13.2-15.2)
[2020-08-28 15:09] LABS: Calcium 9.2 mg/dL (8.4-10.2)
[2020-08-28 15:20] LABS: Platelet Count 98 K/mm3 (140-440)
[2020-08-28] MEDS: PRAVASTATIN 20 MG TAB PO SCH ×2 (20:09→22:21)
[2020-08-29] MEDS: BENZONATATE 100 MG CAP PO SCH ×3 (06:24→13:58)
[2020-08-29] MEDS: ARFORMOTEROL 15 MCG/2 ML NEBU IH SCH (07:51)
[2020-08-29 08:56] LABS: Calcium 8.8 mg/dL (8.4-10.2)
--- NOTE | 2020-08-29 11:10 | Progress Note ---
Assessment and Plan tte reviewed - EF 55-60%, impaired relaxation. Currently stable cardiac status. Hold PO lasix in setting of renal insufficiency and can consider resumption as OP. Pt may discharge from cardiology standpoint. Discharge planning per case management - pt now states that she wishes to return home, home health is being arranged. Recommend pt follow up in our office with Dr. Martínez within 1-2 weeks of discharge ([phone]). The patient has been seen in conjunction with Dr. Martínez who agrees with the assessment and plan of care. - Patient Problems (1) Acute on chronic respiratory failure Current Visit: Yes Status: Acute (2) Malfunction of tracheostomy Current Visit: Yes Status: Acute (3) Asthma with exacerbation Current Visit: Yes Status: Acute (4) Acute heart failure with preserved ejection fraction (HFpEF) Current Visit: Yes Status: Acute (5) Hypertension Current Visit: Yes Status: Chronic Qualifiers: Hypertension type: essential hypertension Qualified Code(s): I10 - Essential (primary) hypertension (6) Type 2 diabetes mellitus Current Visit: Yes Status: Chronic Qualifiers: Diabetes mellitus traveling representative insulin use: unspecified traveling representative insulin use status (7) LAURA (acute kidney injury) Current Visit: Yes Status: Acute (8) Leukocytosis Current Visit: Yes Status: Acute (9) Thrombocytopenia Current Visit: Yes Status: Acute Subjective Date of service: 08/29/20 Principal diagnosis: sob Interval history: pt sitting up at bedside, feeling a little better today. tele reviewed - in SR HR 70-80s. Objective Last Vital Signs Temp 97.7 F 08/29/20 06:53 Pulse 72 08/29/20 07:55 Resp 18 08/29/20 07:55 BP 132/62 08/29/20 06:53 Pulse Ox 96 08/29/20 07:59 - Physical Examination General: No Apparent Distress HEENT: Positive: PERRL, Normocephaly, Mucus Membranes Moist Neck: Positive: neck supple, trachea midline Cardiac: Positive: Reg Rate and Rhythm, S1/S2 Lungs: Positive: Decreased Breath Sounds, Other (trach) Neuro: Positive: Grossly Intact Abdomen: Negative: Tender Extremities: Present: Other (chronic BLE skin changes noted). Absent: edema - Labs and Meds CBC 08/28/20 Range/Units 14:05 WBC 13.1 H (4.5-11.0) K/mm3 RBC 4.42 (3.65-5.03) M/mm3 Hgb 11.8 (10.1-14.3) gm/dl Hct 37.0 (30.3-42.9) % Plt Count 98 L (140-440) K/mm3 Comprehensive Metabolic Panel 08/28/20 08/29/20 Range/Units 14:05 07:30 Sodium 139 139 (137-145) mmol/L Potassium 4.9 4.6 (3.6-5.0) mmol/L Chloride 102.3 101.7 (98-107) mmol/L Carbon Dioxide 30 36 H (22-30) mmol/L BUN 46 H 48 H (7-17) mg/dL Creatinine 1.3 H 1.4 H (0.6-1.2) mg/dL Glucose 169 H 186 H (65-100) mg/dL Calcium 9.2 8.8 (8.4-10.2) mg/dL - Imaging and Cardiology EKG: report reviewed, image reviewed Echo: report reviewed - Telemetry EKG Rhythm: Sinus Rhythm - EKG Sinus rhythms and dysrhythmias: sinus rhythm
--- NOTE | 2020-08-29 11:45 | Discharge Summary ---
Providers - Providers Date of Admission: 08/27/20 19:37 Date of discharge: 08/29/20 Attending physician: TERRELL MANZO 08/27/20 19:39 Consult to Physician [CONS] Routine Comment: Consulting Provider: JUSTEN HERNÁNDEZ Physician Instructions: Reason For Exam: chf 08/27/20 19:54 Physical Therapy Evaluation and Treat [CONS] Routine Comment: Reason For Exam: Debility, inability to ambulate 08/27/20 19:55 Consult to Case Management [CONS] Routine Services Needed at Discharge: Other Notified:: In a.m. Additional Physician Instructions: Discharge planning: long-term facility placement 08/28/20 11:04 Occupational Therapy Evaluate and Treat [CONS] Routine Comment: Reason For Exam: debility Primary care physician: POUAKO KURA KAUPAPA MAORI Hospitalization Condition: Serious Disposition: DC/[place]-06 HOME UNDER HOME [facility] Final Discharge Diagnosis (Prints w/discharge instructions): Physical debility. Acute on chronic hypoxic respiratory failure. Recent history of Pseudomonas pneumonia. History of tracheostomy. Raynaud's disease. Possible left renal mass Time spent for discharge: 34 minutes Core Measure Documentation - Palliative Care Palliative Care/ Comfort Measures: Not Applicable - Core Measures Any of the following diagnoses?: none Exam - Physical Exam Narrative exam: VITAL SIGNS: Reviewed. GENERAL: Awake, no acute distress HEAD: No signs of head trauma. EYES: Pupils are equal. Extraocular motions intact. MOUTH: Oropharynx is normal. NECK: No adenopathy, no JVD. Trach in place CHEST: Positive breath sounds bilaterally CARDIAC: normal S1 and S2, without murmurs, gallops, or rubs. ABDOMEN: Soft, non tender and non distended. MUSCULOSKELETAL: No joint effusion or tenderness NEUROLOGIC EXAM: Alert and oriented x3. No focal neurologic deficits Extremities no edema, cold SKIN: No obvious lesions - Constitutional Vitals: Temp Pulse Resp BP Pulse Ox 97.7 F 72 18 132/62 96 08/29/20 06:53 08/29/20 07:55 08/29/20 07:55 08/29/20 06:53 08/29/20 07:59 Plan Activity: advance as tolerated Diet: renal Wound: keep clean and dry Additional Instructions: Please f/u with Dr hogue to have to have CT abdomen/pelvis with contrast in one week for possible left renal mass. Plan of Treatment: Home health service with G[facility] at [facility] [phone] Follow up with: PRIMARY CAREMD [Primary Care Provider] - 3-5 Days SOFI HOGUE MD [Staff Physician] - 7 Days Prescriptions: amLODIPine 5 mg PO QDAY #30 tablet Other Discharge Orders: CT abdomen pelvis wo/w con Location: None Selected Basic Metabolic Panel Location: None Selected
[2020-08-29] MEDS ORDERED: METOPROLOL TARTRATE 100 MG TAB PO SCH (11:46)
[2020-08-29] MEDS ORDERED: METOPROLOL TARTRATE 50 MG TAB PO SCH (12:00)
[2020-08-29] MEDS: predniSONE 20 MG TAB PO SCH (12:35)
[2020-08-29] MEDS: HEPARIN 5,000 UNIT/1 ML VIAL SUB-Q SCH (12:40)
[2020-08-29] MEDS: ASPIRIN 81 MG TAB CHEW PO SCH (12:40)
[2020-08-29] MEDS: GABAPENTIN 300 MG CAP PO SCH (12:40)
[2020-08-29 16:12] VITALS: BP 124/53
--- NOTE | 2020-08-29 17:10 | Progress Note ---
Assessment and Plan Acute on chronic hypoxemic respiratory failure -Patient has a trach in place, continue O2 supplement as needed -Ordered for CTA chest for possible PE and result was negative CHF with preserved EF, chest x-ray shows no infiltrates or any acute change, cardiology consulted, preserved EF on 2D echo Diabetes mellitus type 2, Sliding-scale insulin therapy, Accu-Chek, hypoglycemia protocol, Hypertension, continue home meds Physical debility, Patient refused placement LAURA, vasomotor nephropathy -Creatinine currently at her baseline, will continue to monitor Hyperkalemia, likely due to LAURA, resolved -Kayexalate and bicarbonate as needed Raynaud's phenomena/disease: We will place on low-dose calcium channel fidel, follow clinically Left renal mass : advised CT abdomen/pelvis w/wo contrast as outpt Leukocytosis, steroid induced, monitor off abx DVT prophylaxis, Lovenox Daily clinical course: 08/28/20: patient was recently discharged after being treated for Pseudomonas pneumonia. PT recommended home health before discharge. Patient lives alone with a roommate, home has stairs and patient reports that she is unable to take care of herself or climb the stair. She thought she could manage at home after most recent discharge but feels now as though she cannot. She is requesting subacute rehabilitation placement at discharge. client relationship manager consulted for further placement. Wait for 2D echocardiogram. patient on 10L O2 as O2 sat om pulse oxy showing low sat - which I believe not real as patient has possible [place] phenomena. will order for ABG and recommended RT to assess pulse ox with other site. 08/29/20: patient need trach supplies as she stating she doesn't have the supplies for the current trach tube. Apparently CM doesn't know how to order. Called nuclear reactor engineer who was following her and referred to call RT. discussed with RT and he will facilitate the DME supplies with CM. Subjective Date of service: 08/29/20 Principal diagnosis: sob Interval history: Patient seen and examined. Medical records and medication list reviewed. No acute event overnight noted by the RN. Patient on supplemental O2. Patient is tolerating diet. Does not appear to be in any distress, patient sitting at the side of the bed and eating Discussed plan of care at bedside with patient. Objective - Exam Narrative Exam: VITAL SIGNS: Reviewed. GENERAL: Awake, no acute distress HEAD: No signs of head trauma. EYES: Pupils are equal. Extraocular motions intact. MOUTH: Oropharynx is normal. NECK: No adenopathy, no JVD. Trach in place CHEST: Positive breath sounds bilaterally CARDIAC: normal S1 and S2, without murmurs, gallops, or rubs. ABDOMEN: Soft, non tender and non distended. MUSCULOSKELETAL: No joint effusion or tenderness NEUROLOGIC EXAM: Alert and oriented x3. No focal neurologic deficits Extremities no edema, cold SKIN: No obvious lesions - Constitutional Vitals: Vital Signs - 12hr 08/29/20 08/29/20 08/29/20 06:53 07:52 07:55 Temperature 97.7 F Pulse Rate 57 L Pulse Rate [ 72 Bilateral Throughout] Respiratory 19 Rate Respiratory 18 Rate [Bilateral Throughout] Blood Pressure 132/62 O2 Sat by Pulse 98 Oximetry O2 Sat by Pulse 96 Oximetry [ Assessment] 08/29/20 08/29/20 08/29/20 07:59 11:41 12:36 Temperature 98.4 F Pulse Rate 80 78 Pulse Rate [ Bilateral Throughout] Respiratory 20 Rate Respiratory Rate [Bilateral Throughout] Blood Pressure 117/55 O2 Sat by Pulse 96 99 Oximetry O2 Sat by Pulse Oximetry [ Assessment] 08/29/20 08/29/20 15:23 16:37 Temperature 98.1 F Pulse Rate 60 Pulse Rate [ Bilateral Throughout] Respiratory Rate Respiratory Rate [Bilateral Throughout] Blood Pressure 124/53 O2 Sat by Pulse 100 Oximetry O2 Sat by Pulse 98 Oximetry [ Assessment] - Labs CBC & Chem 7: 08/28/20 14:05 08/29/20 07:30 Labs: Abnormal lab results 08/28/20 08/29/20 Range/Units 20:20 07:30 Carbon Dioxide 36 H (22-30) mmol/L BUN 48 H (7-17) mg/dL Creatinine 1.4 H (0.6-1.2) mg/dL Glucose 186 H (65-100) mg/dL POC Glucose 242 H (70-105) mg/dL HEART Score - HEART Score Troponin: Troponin T 0.011 ng/mL (0.00-0.029) 08/27/20 13:52
[2020-08-30] MEDS ORDERED: amLODIPine 5 MG TAB PO SCH (10:00)
== END 2020-08-29 18:32 | disposition home health service (06) | DRG 205 ==
LOC: ED 13:24 → 3A 19:25 → OBSVTOIN 19:37 → 4A 23:36
PROVIDERS: ADMIT Internal Medicine; ATTEND Internal Medicine
PROC: 4A033R1 Measurement of Arterial Saturation, Peripheral, Percutaneous Approach (ICD-10-PCS; principal; 2020-08-27)
DX: J95.03 Malfunction of tracheostomy stoma (principal); N17.0 Acute kidney failure with tubular necrosis; I50.21 Acute systolic (congestive) heart failure; J96.01 Acute respiratory failure with hypoxia; E66.2 Morbid (severe) obesity with alveolar hypoventilation; I42.9 Cardiomyopathy, unspecified; J45.901 Unspecified asthma with (acute) exacerbation; Z20.822 Contact with and (suspected) exposure to COVID-19; E87.5 Hyperkalemia; I73.00 Raynaud's syndrome without gangrene; E11.9 Type 2 diabetes mellitus without complications; Z96.659 Presence of unspecified artificial knee joint; D72.829 Elevated white blood cell count, unspecified; I11.0 Hypertensive heart disease with heart failure; T38.0X5A Adverse effect of glucocorticoids and synthetic analogues, initial encounter; D69.6 Thrombocytopenia, unspecified; F01.50 Vascular dementia, unspecified severity, without behavioral disturbance, psychotic disturbance, mood disturbance, and anxiety; Z79.899 Other long term (current) drug therapy; Z79.84 Long term (current) use of oral hypoglycemic drugs; Z79.891 Long term (current) use of opiate analgesic; Z79.01 Long term (current) use of anticoagulants; Z79.82 Long term (current) use of aspirin; Z83.3 Family history of diabetes mellitus; Z82.49 Family history of ischemic heart disease and other diseases of the circulatory system; Z88.8 Allergy status to other drugs, medicaments and biological substances; Y92.89 Other specified places as the place of occurrence of the external cause
CPT/HCPCS: 36415; 70450; 71045; 71275; 80048; 80053; 82803; 82962; 83735; 83880; 84439; 84443; 84484; 85007; 85025; 85027; 85610; 93005; 93306; 94640; 94760; G0378; A9270-GY; J1644; J7512; Q9967

== ENCOUNTER 2020-10-24 07:57 | Inpatient (IN) | payer MEDICARE ==
--- NOTE | 2020-10-24 08:24 | Emergency Department Report ---
ED General Adult HPI - General Chief complaint: Weakness Stated complaint: RESPIRATORY DISTRESS PUI?: No Time Seen by Provider: 10/24/20 08:05 Source: patient, EMS ( EMS documentation not available at time of chart dictat ion ), RN notes reviewed, old records reviewed Mode of arrival: Stretcher Limitations: Physical Limitation - History of Present Illness Initial comments: The patient was evaluated in the emergency department for symptoms described in the history of present illness. He/she was evaluated in the context of the global COVID-19 pandemic, which necessitated consideration that the patient might be at risk for infection with the virus that causes COVID-19. Institutional protocols and algorithms that pertain to the evaluation of patients at risk for COVID-19 are in a state of rapid change based on information released by regulatory bodies including the CDC and federal and state organizations. These policies and algorithms were followed during the patient's care in the emergency department. Please note that these policies, procedures and recommendations changed on a rapid basis. The patient is a 70-year-old female. She has a history of tracheostomy placement, history of acute on chronic hypoxic respiratory failure, home oxygen as needed, CHF with preserved ejection fraction, recently admitted to this hospital August 2020, for weakness and shortness of breath. She had a CAT scan of the chest which showed no pulmonary embolism, she was suspected of having possible Raynaud's phenomenon, it was recommended that she go to subacute rehabilitation, but patient declined. Her other past medical history includes type 2 diabetes, body mass index of 42, physical debility, hypertension, vasomotor nephropathy, and suspected Raynaud's phenomenon/disease. Today, the patient presents to the ER with a primary complaints of generalized painless weakness, inability to ambulate on her own, or complete activities of daily living. She also complains of resolved shortness of breath, and feeling like her tracheostomy needs to be suctioned. Nursing team has indicated that EMS gave the patient albuterol and steroids in the field. The patient does not know her home medications off the top of her head. She was discharged on high-dose steroids during her previous admission. The patient reports that she has received 2 COVID-19 vaccinations. She denies headache, neck pain, chest pain, abdominal pain, dysuria, nausea, vomiting and diarrhea, she denies loss of taste and smell. She reports that she stayed in bed all day yesterday. She reports that the day before, she had to "scoot", "to get around." She lives with a friend/roommate, Ms. Link, who is not able to really help the patient out with her activities of daily living. The patient reports that prior to this Friday, she was more ambulatory in general. She also mentions and complains of nontraumatic right great toe pain, present for 4 to 5 weeks, aching and throbbing, for which she has seen an outpatient sports teacher. -: Gradual, Sudden Location: lower extremity (Right great toe) Radiation: non-radiation Quality: aching (Pain is throbbing and aching) Consistency: intermittent (Pain is intermittent.), other (Generalized weakness is constant) Improves with: other (Pain decreases with rest. Weakness does not have exacerbating or relieving factors.) Worsens with: movement (Pain of right great toe increases with palpation) - Related Data Home Medications Medication Instructions Recorded Confirmed Last Taken Aspirin 81 mg PO DAILY 03/18/20 08/27/20 Unknown Gabapentin 300 mg PO BID 03/18/20 08/27/20 Unknown Pravastatin 10 mg PO DAILY 03/18/20 08/27/20 Unknown Previous Rx's Medication Instructions Recorded Last Taken Type Benzonatate [Tessalon Perles] 100 mg PO Q8HR #21 capsule 03/19/20 Unknown Rx Arformoterol Nebu [Brovana Nebu] 15 mcg IH Q12HRT 30 Days 08/26/20 Unknown Rx predniSONE [Deltasone] 40 mg PO DAILY #5 tablet 08/26/20 Unknown Rx Metoprolol [Lopressor TAB] 50 mg PO BID tablet 08/29/20 Unknown Rx amLODIPine 5 mg PO QDAY #30 tablet 08/29/20 Unknown Rx Allergies Allergy/AdvReac Type Severity Reaction Status Date / Time celecoxib [From Celebrex] Allergy Unknown Verified 10/24/20 08:38 ED Review of Systems ROS: Stated complaint: RESPIRATORY DISTRESS Other details as noted in HPI Constitutional: malaise, other (Denies loss of taste and smell). denies: fever, weakness Eyes: denies: eye discharge ENT: congestion Respiratory: cough, shortness of breath Cardiovascular: denies: chest pain Gastrointestinal: denies: abdominal pain Genitourinary: denies: dysuria Musculoskeletal: joint swelling, arthralgia, myalgia Neurological: weakness. denies: headache ED Past Medical Hx - Past Medical History Hx Hypertension: Yes Hx Congestive Heart Failure: Yes Hx Diabetes: Yes Hx Dementia: Yes Additional medical history: O2 AT HOME - Surgical History Additional Surgical History: KNEE REPLACEMENTS, pituitary tumor resection - Social History Smoking Status: Never Smoker - Medications Home Medications: Home Medications Medication Instructions Recorded Confirmed Last Taken Type Aspirin 81 mg PO DAILY 03/18/20 08/27/20 Unknown History Gabapentin 300 mg PO BID 03/18/20 08/27/20 Unknown History Pravastatin 10 mg PO DAILY 03/18/20 08/27/20 Unknown History Benzonatate [Tessalon Perles] 100 mg PO Q8HR #21 capsule 03/19/20 08/27/20 Unknown Rx Arformoterol Nebu [Brovana Nebu] 15 mcg IH Q12HRT 30 Days 08/26/20 08/27/20 Unknown Rx predniSONE [Deltasone] 40 mg PO DAILY #5 tablet 08/26/20 08/27/20 Unknown Rx Metoprolol [Lopressor TAB] 50 mg PO BID tablet 08/29/20 Unknown Rx amLODIPine 5 mg PO QDAY #30 tablet 08/29/20 Unknown Rx ED Physical Exam - General Limitations: Physical Limitation General appearance: alert, obese - Head Head exam: Present: atraumatic, normocephalic - Eye Eye exam: Present: normal appearance, EOMI. Absent: nystagmus - ENT ENT exam: Present: normal exam, normal orophraynx, mucous membranes moist, normal external ear exam - Neck Neck exam: Present: normal inspection, full ROM, other (There is anterior neck tracheostomy in place, without redness, pus or streaking). Absent: tenderness, meningismus - Respiratory Respiratory exam: Present: decreased breath sounds. Absent: respiratory distress, wheezes, rales, rhonchi, stridor - Cardiovascular Cardiovascular Exam: Present: regular rate, normal rhythm, normal heart sounds. Absent: bradycardia, tachycardia, irregular rhythm, systolic murmur, diastolic murmur, rubs, gallop - GI/Abdominal GI/Abdominal exam: Present: soft. Absent: distended, tenderness, guarding, rebound, rigid, pulsatile mass - Extremities Exam Extremities exam: Present: full ROM, tenderness (There is point tenderness in the right great toe. There is no redness, pus or streaking.), other (2+ pulses noted in the bilateral upper and lower extremities. There is no palpable cord. negative Homans sign. Muscular compartments are soft. The pelvis is stable.). Absent: normal inspection (Chronic venous stasis changes noted in the bilateral lower extremities.), pedal edema, calf tenderness - Back Exam Back exam: Present: normal inspection. Absent: tenderness, CVA tenderness (R), CVA tenderness (L), paraspinal tenderness, vertebral tenderness - Neurological Exam Neurological exam: Present: alert, oriented X3, other (No facial droop. Tongue midline. Extraocular movements intact bilaterally. Facial sensation intact to light touch in V1, V2, V3 distribution bilaterally. 5 and a 5 strength in 4 extremities. Sensation intact to light touch in 4 extremities.). Absent: motor sensory deficit - Psychiatric Psychiatric exam: Present: normal affect, normal mood - Skin Skin exam: Present: warm, dry, intact, normal color. Absent: rash ED Course Vital Signs 10/24/20 10/24/20 10/24/20 08:14 08:15 08:30 Temperature 98.2 F Pulse Rate 113 H 100 H 100 H Respiratory 17 21 Rate Blood Pressure 143/62 143/62 O2 Sat by Pulse 100 100 99 Oximetry 10/24/20 09:56 Temperature Pulse Rate Respiratory Rate Blood Pressure 165/74 O2 Sat by Pulse 100 Oximetry - Reevaluation(s) Reevaluation #1: 10/24/20 09:25 Differential diagnosis, including but not limited to: Debility, deconditioning, steroid myopathy, COPD, encounter for tracheostomy care, pneumonia, urinary tract infection, thyroid derangement, electrolyte derangement Assessment and plan: 70-year-old female, presenting with a complaint of generalized weakness, and resolved shortness of breath and mucous plug. From a respiratory standpoint, patient has tracheostomy in place, phonating in complete sentences, without redness, pus or streaking around the tracheostomy, without stridor, and without any significant respiratory distress at this time. She is currently maintained on a tracheostomy collar. She has home tracheostomy supplies and home oxygen. Respiratory therapy has aggressively suctioned this patient's tracheostomy. We will continue the patient's home medications, with the exception of steroids. 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 Patient was on high-dose steroids from her previous admission. She does not know if she is on steroids at this time. We have asked that nursing team reconcile medications, and perform to person ambulatory test. I have also requested a case management and physical therapy evaluation. I have advised the patient that if she is not able to ambulate, we cannot safely disch arge this patient. The patient has a roommate/friend by the name of Fariba, who is not able to ass ist the patient with her activities of daily living. The patient also has an elderly sister in [place], who the patient advises is not able to help her out. We will reassess after initial data points. 10/24/20 10: Reevaluation #2: 10/24/20 10:22 Patient is found to have new onset anemia, guaiac negative on rectal exam, chaperoned by nurse Dang Perry. It is normocytic. She is also found to have evidence of renal insufficiency, and urinary tract infection. Patient denies rectal bleeding and hematemesis. Given deconditioning, debility, multiple laboratory abnormalities, patient meets criteria for admission and hospitalization. We will start IV fluids, and ant ibiotics. Patient updated on plan of care. She is amenable to admission and hospitalization. I will defer to inpatient team to follow-up on physical therapy and case management recommendations. Hospital physician, Dr. Perry to admit to [facility] ED Medical Decision Making - Lab Data Result diagrams: 10/24/20 09:00 10/24/20 09:00 Vital Signs 10/24/20 08:15 Temperature 98.2 F Pulse Rate 100 H Respiratory 21 Rate Blood Pressure 143/62 O2 Sat by Pulse 100 Oximetry Lab Results 10/24/20 10/24/20 10/24/20 Range/Units 09:00 09:00 09:00 WBC 9.0 (4.5-11.0) K/mm3 RBC 3.03 L (3.65-5.03) M/mm3 Hgb 8.5 L (10.1-14.3) gm/dl Hct 26.5 L (30.3-42.9) % MCV 87 (79-97) fl MCH 28 (28-32) pg MCHC 32 (30-34) % RDW 16.6 H (13.2-15.2) % Plt Count 148 (140-440) K/mm3 Lymph % (Auto) 28.8 (13.4-35.0) % [place] % (Auto) 5.8 (0.0-7.3) % Eos % (Auto) 1.9 (0.0-4.3) % Baso % (Auto) 0.3 (0.0-1.8) % Lymph # (Auto) 2.6 (1.2-5.4) K/mm3 [place] # (Auto) 0.5 (0.0-0.8) K/mm3 Eos # (Auto) 0.2 (0.0-0.4) K/mm3 Baso # (Auto) 0.0 (0.0-0.1) K/mm3 Seg Neutrophils % 63.2 (40.0-70.0) % Seg Neutrophils # 5.7 (1.8-7.7) K/mm3 PT 13.7 (12.2-14.9) Sec. INR 1.06 (0.87-1.13) Sodium 144 (137-145) mmol/L Potassium 4.0 (3.6-5.0) mmol/L Chloride 107.7 H (98-107) mmol/L Carbon Dioxide 25 (22-30) mmol/L Anion Gap 15 mmol/L BUN 34 H (7-17) mg/dL Creatinine 2.4 H (0.6-1.2) mg/dL Estimated GFR 24 ml/min BUN/Creatinine Ratio 14 % Glucose 134 H (65-100) mg/dL Lactic Acid (0.7-2.0) mmol/L Calcium 10.1 (8.4-10.2) mg/dL Magnesium 2.20 (1.7-2.3) mg/dL Total Bilirubin 0.40 (0.1-1.2) mg/dL AST 11 (5-40) units/L Alkaline Phosphatase 80 (35-129) units/L Total Creatine Kinase 59 (30-135) units/L Troponin T 0.014 (0.00-0.029) ng/mL Total Protein 7.0 (6.3-8.2) g/dL Albumin 3.8 L (3.9-5) g/dL Albumin/Globulin Ratio 1.2 % TSH (0.270-4.200) mlU/mL Urine Color (Yellow) Urine Turbidity (Clear) Urine pH (5.0-7.0) Ur Specific [place] (1.003-1.030) Urine Protein (Negative) mg/dL Urine Glucose (UA) (Negative) mg/dL Urine Ketones (Negative) mg/dL Urine Blood (Negative) Urine Nitrite (Negative) Urine Bilirubin (Negative) Urine Urobilinogen (<2.0) mg/dL Ur Leukocyte Esterase (Negative) Urine WBC (Auto) (0.0-6.0) /HPF Urine RBC (Auto) (0.0-6.0) /HPF U Epithel Cells (Auto) (0-13.0) /HPF Urine Bacteria (Auto) (Negative) /HPF Urine WBC Clumps /HPF Ur Transition Epith Cell /HPF Hyaline Casts /LPF WBC Casts /LPF Urine Mucus /HPF Acetaminophen (10.0-30.0) ug/mL 10/24/20 10/24/20 10/24/20 Range/Units 09:00 09:00 09:00 WBC (4.5-11.0) K/mm3 RBC (3.65-5.03) M/mm3 Hgb (10.1-14.3) gm/dl Hct (30.3-42.9) % MCV (79-97) fl MCH (28-32) pg MCHC (30-34) % RDW (13.2-15.2) % Plt Count (140-440) K/mm3 Lymph % (Auto) (13.4-35.0) % [place] % (Auto) (0.0-7.3) % Eos % (Auto) (0.0-4.3) % Baso % (Auto) (0.0-1.8) % Lymph # (Auto) (1.2-5.4) K/mm3 [place] # (Auto) (0.0-0.8) K/mm3 Eos # (Auto) (0.0-0.4) K/mm3 Baso # (Auto) (0.0-0.1) K/mm3 Seg Neutrophils % (40.0-70.0) % Seg Neutrophils # (1.8-7.7) K/mm3 PT (12.2-14.9) Sec. INR (0.87-1.13) Sodium (137-145) mmol/L Potassium (3.6-5.0) mmol/L Chloride (98-107) mmol/L Carbon Dioxide (22-30) mmol/L Anion Gap mmol/L BUN (7-17) mg/dL Creatinine (0.6-1.2) mg/dL Estimated GFR ml/min BUN/Creatinine Ratio % Glucose (65-100) mg/dL Lactic Acid 1.20 (0.7-2.0) mmol/L Calcium (8.4-10.2) mg/dL Magnesium (1.7-2.3) mg/dL Total Bilirubin (0.1-1.2) mg/dL AST (5-40) units/L Alkaline Phosphatase (35-129) units/L Total Creatine Kinase (30-135) units/L Troponin T (0.00-0.029) ng/mL Total Protein (6.3-8.2) g/dL Albumin (3.9-5) g/dL Albumin/Globulin Ratio % TSH 2.350 (0.270-4.200) mlU/mL Urine Color (Yellow) Urine Turbidity (Clear) Urine pH (5.0-7.0) Ur Specific [place] (1.003-1.030) Urine Protein (Negative) mg/dL Urine Glucose (UA) (Negative) mg/dL Urine Ketones (Negative) mg/dL Urine Blood (Negative) Urine Nitrite (Negative) Urine Bilirubin (Negative) Urine Urobilinogen (<2.0) mg/dL Ur Leukocyte Esterase (Negative) Urine WBC (Auto) (0.0-6.0) /HPF Urine RBC (Auto) (0.0-6.0) /HPF U Epithel Cells (Auto) (0-13.0) /HPF Urine Bacteria (Auto) (Negative) /HPF Urine WBC Clumps /HPF Ur Transition Epith Cell /HPF Hyaline Casts /LPF WBC Casts /LPF Urine Mucus /HPF Acetaminophen 5.0 L (10.0-30.0) ug/mL 05/18/21 Range/Units Unknown WBC (4.5-11.0) K/mm3 RBC (3.65-5.03) M/mm3 Hgb (10.1-14.3) gm/dl Hct (30.3-42.9) % MCV (79-97) fl MCH (28-32) pg MCHC (30-34) % RDW (13.2-15.2) % Plt Count (140-440) K/mm3 Lymph % (Auto) (13.4-35.0) % [place] % (Auto) (0.0-7.3) % Eos % (Auto) (0.0-4.3) % Baso % (Auto) (0.0-1.8) % Lymph # (Auto) (1.2-5.4) K/mm3 [place] # (Auto) (0.0-0.8) K/mm3 Eos # (Auto) (0.0-0.4) K/mm3 Baso # (Auto) (0.0-0.1) K/mm3 Seg Neutrophils % (40.0-70.0) % Seg Neutrophils # (1.8-7.7) K/mm3 PT (12.2-14.9) Sec. INR (0.87-1.13) Sodium (137-145) mmol/L Potassium (3.6-5.0) mmol/L Chloride (98-107) mmol/L Carbon Dioxide (22-30) mmol/L Anion Gap mmol/L BUN (7-17) mg/dL Creatinine (0.6-1.2) mg/dL Estimated GFR ml/min BUN/Creatinine Ratio % Glucose (65-100) mg/dL Lactic Acid (0.7-2.0) mmol/L Calcium (8.4-10.2) mg/dL Magnesium (1.7-2.3) mg/dL Total Bilirubin (0.1-1.2) mg/dL AST (5-40) units/L Alkaline Phosphatase (35-129) units/L Total Creatine Kinase (30-135) units/L Troponin T (0.00-0.029) ng/mL Total Protein (6.3-8.2) g/dL Albumin (3.9-5) g/dL Albumin/Globulin Ratio % TSH (0.270-4.200) mlU/mL Urine Color [place] (Yellow) Urine Turbidity Cloudy (Clear) Urine pH 5.0 (5.0-7.0) Ur Specific [place] 1.018 (1.003-1.030) Urine Protein 30 mg/dl (Negative) mg/dL Urine Glucose (UA) Neg (Negative) mg/dL Urine Ketones Neg (Negative) mg/dL Urine Blood Sm (Negative) Urine Nitrite Neg (Negative) Urine Bilirubin Neg (Negative) Urine Urobilinogen 2.0 (<2.0) mg/dL Ur Leukocyte Esterase Tr (Negative) Urine WBC (Auto) 34.0 H (0.0-6.0) /HPF Urine RBC (Auto) 12.0 (0.0-6.0) /HPF U Epithel Cells (Auto) 6.0 (0-13.0) /HPF Urine Bacteria (Auto) 1+ (Negative) /HPF Urine WBC Clumps 3+ /HPF Ur Transition Epith Cell 2 /HPF Hyaline Casts 17 /LPF WBC Casts 2 /LPF Urine Mucus 1+ /HPF Acetaminophen (10.0-30.0) ug/mL Vital Signs 10/24/20 10/24/20 10/24/20 08:14 08:15 08:30 Temperature 98.2 F Pulse Rate 113 H 100 H 100 H Respiratory 17 21 Rate Blood Pressure 143/62 143/62 O2 Sat by Pulse 100 100 99 Oximetry 10/24/20 09:56 Temperature Pulse Rate Respiratory Rate Blood Pressure 165/74 O2 Sat by Pulse 100 Oximetry - EKG Data -: EKG Interpreted by Mt EKG shows normal: sinus rhythm Rate: normal - EKG Data 10/24/20 09:24 EKG interpreted at 08: 59 Sinus rhythm, 99 bpm. Normal axis, QTC 4 4 4 ms. PVC, left ventricular hypertrophy. Motion artifact. DE interval within normal limits. This is an abnormal EKG. This is not a STEMI. It appears to be unchanged from prior EKG from 08/27/2020 - Radiology Data Radiology results: pending, report reviewed, image reviewed [facility] [address] [place] [address] XRay Report Signed Patient: RAMAKRISHNA DUKES MR#: [id number] : 1950 Acct:[id number] Age/Sex: 70 / F ADM Date: 10/24/20 Loc: ED Attending Dr: Ordering Physician: ADIS SO MD Date of Service: 10/24/20 Procedure(s): XR chest 1V ap Accession Number(s): [id number] cc: ADIS SO MD Fluoro Time In Minutes: CHEST 1 VIEW 10/24/2020 8:24 AM INDICATION / CLINICAL INFORMATION: dyspnea. COMPARISON: 08/27/2020 FINDINGS: SUPPORT DEVICES: Stable, satisfactory device positioning. HEART / MEDIASTINUM: Stable. LUNGS / PLEURA: Persistent elevation of left hemidiaphragm and left lung base atelectasis. No confluent infiltrates. No pleural effusion. No pneumothorax. ADDITIONAL FINDINGS: No significant additional findings. IMPRESSION: 1. No acute findings. No significant interval change since 08/27/2020. Signer Name: Sai Villa MD Signed: 10/24/2020 9:29 AM Workstation Name: [id number] Transcribed By: CH Dictated By: SAI VILLA Electronically Authenticated By: SAI VILLA Signed Date/Time: 10/24/20928 DD/ 7 TD/TT: Critical care attestation.: If time is entered above; I have spent that time in minutes in the direct care of this critically ill patient, excluding procedure time. ED Disposition Clinical Impression: Acute anemia, Acute renal insufficiency, Debility, Inability to walk, Weakness, Tracheostomy care, UTI (urinary tract infection) Disposition: OP ADMIT IP TO THIS HOSP Is pt being admited?: Yes Does the pt Need Aspirin: No Condition: Fair Referrals: PRIMARY CAREMD [Primary Care Provider] - 3-5 Days
[2020-10-24] MEDS ORDERED: LACTATED RINGERS 1,000 ML IV ONE (08:48)
[2020-10-24 09:32] LABS: Bacteria,Urine 1+ /HPF (Negative); Bilirubin,Urine NEG (Negative); Blood,Urine SM (Negative); Color,Urine Amber (Yellow); Hyaline Casts,Urine 17 /LPF; Mucus,Urine 1+ /HPF; White Blood Cell Casts,Urine 2 /LPF
--- NOTE | 2020-10-24 09:34 | XRay Report ---
CHEST 1 VIEW 10/24/2020 8:24 AM INDICATION / CLINICAL INFORMATION: dyspnea. COMPARISON: 08/27/2020 FINDINGS: SUPPORT DEVICES: Stable, satisfactory device positioning. HEART / MEDIASTINUM: Stable. LUNGS / PLEURA: Persistent elevation of left hemidiaphragm and left lung base atelectasis. No conflue nt infiltrates. No pleural effusion. No pneumothorax. ADDITIONAL FINDINGS: No significant additional findings. IMPRESSION: 1. No acute findings. No significant interval change since 08/27/2020. Signer Name: Sai Barakat MD Signed: 10/24/2020 9:29 AM Workstation Name: [id number]
[2020-10-24 09:44] LABS: Basophils % (Auto) 0.3 % (0.0-1.8); Eosinophils # (Auto) 0.2 K/mm3 (0.0-0.4); Eosinophils % (Auto) 1.9 % (0.0-4.3); Hematocrit 26.5 % (30.3-42.9); Hemoglobin 8.5 gm/dl (10.1-14.3); Lymphocytes # (Auto) 2.6 K/mm3 (1.2-5.4); Lymphocytes % (Auto) 28.8 % (13.4-35.0); Mean Corpuscular HGB Conc 32 % (30-34); Mean Corpuscular Volume 87 fl (79-97); Monocytes # (Auto) 0.5 K/mm3 (0.0-0.8); Monocytes % (Auto) 5.8 % (0.0-7.3); Platelet Count 148 K/mm3 (140-440); Red Blood Count 3.03 M/mm3 (3.65-5.03); Red Cell Distribution Width 16.6 % (13.2-15.2)
[2020-10-24 09:52] LABS: Albumin 3.8 g/dL (3.9-5); BUN/Creatinine Ratio 14; Blood Urea Nitrogen 34 mg/dL (7-17); Calcium 10.1 mg/dL (8.4-10.2); Hemolysis Index 1
[2020-10-24 09:54] LABS: INR 1.06 (0.87-1.13)
--- NOTE | 2020-10-24 09:58 | Emergency Department Report ---
HPI - General Chief Complaint: Weakness PUI?: No Time Seen by Provider: 10/24/20 08:05 ED Past Medical Hx - Past Medical History Hx Hypertension: Yes Hx Congestive Heart Failure: Yes Hx Diabetes: Yes Hx Dementia: Yes Additional medical history: O2 AT HOME - Surgical History Additional Surgical History: KNEE REPLACEMENTS, pituitary tumor resection - Social History Smoking Status: Never Smoker - Medications Home Medications: Home Medications Medication Instructions Recorded Confirmed Last Taken Type Aspirin 81 mg PO DAILY 03/18/20 08/27/20 Unknown History Gabapentin 300 mg PO BID 03/18/20 08/27/20 Unknown History Pravastatin 10 mg PO DAILY 03/18/20 08/27/20 Unknown History Benzonatate [Tessalon Perles] 100 mg PO Q8HR #21 capsule 03/19/20 08/27/20 Unknown Rx Arformoterol Nebu [Brovana Nebu] 15 mcg IH Q12HRT 30 Days 08/26/20 08/27/20 Unknown Rx predniSONE [Deltasone] 40 mg PO DAILY #5 tablet 08/26/20 08/27/20 Unknown Rx Metoprolol [Lopressor TAB] 50 mg PO BID tablet 08/29/20 Unknown Rx amLODIPine 5 mg PO QDAY #30 tablet 08/29/20 Unknown Rx ED Review of Systems ROS: Stated complaint: RESPIRATORY DISTRESS Other details as noted in HPI Constitutional: malaise, other (Denies loss of taste and smell). denies: fever, weakness Eyes: denies: eye discharge ENT: congestion Respiratory: cough, shortness of breath Cardiovascular: denies: chest pain Gastrointestinal: denies: abdominal pain Genitourinary: denies: dysuria Musculoskeletal: joint swelling, arthralgia, myalgia Neurological: weakness. denies: headache Physical Exam - Physical Exam Vital Signs: Vital Signs 10/24/20 08:15 Temperature 98.2 F Pulse Rate 100 H Respiratory 21 Rate Blood Pressure 143/62 O2 Sat by Pulse 100 Oximetry Physical Exam: GENERAL: Well developed. Well nourished. No acute distress HEENT: Normocephalic. Atratumatic. Moist mucous membranes. EYES: Extraocular movements are intact. Pupils are equal round and reactive to light bilaterally NECK: Supple. Trachea is midline. LUNGS: Nonlabored breathing. Equal chest rise bilaterally. Clear to auscultation bilaterally. HEART/CARDIOVASCULAR: Regular rate and rhythm. No murmurs or rubs. ABDOMEN: Abdomen is soft and nondistended. Normal bowel sounds. No significant tenderness, guarding or rebound. SKIN: Skin is warm and dry NEURO: patient is awake, alert, and oriented. No focal deficits. normal motor and sensory eam throughout. Normal speech. Normal gait. MUSCULOSKELETAL: Normal ROM throughout. There are no tenderness or deformity. No significant limitation of range of motion. BACK/SPINE: No midline tenderness or step-offs of the C/T/L spine. No costovertebral angle tenderness. ED Course Vital Signs 10/24/20 08:15 Temperature 98.2 F Pulse Rate 100 H Respiratory 21 Rate Blood Pressure 143/62 O2 Sat by Pulse 100 Oximetry ED Medical Decision Making - Lab Data Result diagrams: 10/24/20 09:00 10/24/20 09:00 Critical care attestation.: If time is entered above; I have spent that time in minutes in the direct care of this critically ill patient, excluding procedure time. ED Disposition Condition: Stable Referrals: PRIMARY CARE, [Primary Care Provider] - 3-5 Days
[2020-10-24] MEDS ORDERED: METOPROLOL TARTRATE 100 MG TAB PO SCH (10:00)
[2020-10-24] MEDS ORDERED: PRAVASTATIN 10 MG PO SCH (10:00)
[2020-10-24] MEDS ORDERED: NON-FORMULARY EACH (Gabapentin 300 MG) PO SCH (10:00)
[2020-10-24 10:24] LABS: Alanine Aminotransferase < 5 units/L (7-56)
[2020-10-24] MEDS: GABAPENTIN 300 MG CAP PO SCH ×2 (10:30→21:48)
[2020-10-24] MEDS: amLODIPine 5 MG TAB PO SCH (10:30)
--- NOTE | 2020-10-24 10:32 | Electrocardiograph Report ---
[facility] Test Date: 2020-10-24 Test Time: 08:59:08 Pat Name: RAMAKRISHNA DUKES Department: Room: Gender: F [employer] Supervisor: TV : 1950 Requested By: ADIS SO Order Number: [id number] Reading MD: Jae Dallas Measurements Intervals [place] Rate: 99 P: 67 CO: 198 QRS: 23 QRSD: 83 T: 89 QT: 346 QTc: 444 Interpretive Statements Sinus rhythm Ventricular premature complex limb reversal, repeat ekg Compared to ECG 08/27/2020 14:41:57 Ventricular premature complex(es) now present Myocardial infarct finding now present Sinus bradycardia no longer present Electronically Signed On 10-24-2020 10:32:15 EDT by Jae Dallas
[2020-10-24] MEDS ORDERED: cefTRIAXone/NS 1 GM/50 ML 1 GM/50 ML BAG IV ONE (11:00)
--- NOTE | 2020-10-24 12:01 | History and Physical Report ---
History of Present Illness Date of examination: 10/24/20 Date of admission: 10/24/20 10:25 Chief complaint: SOB History of present illness: This 70-year-old female with hypertension, peripheral neuropathy, ? dementia, chronic respiratory failure s/p trach with home oxygen, s/p pituitary tumor resection, who presented to the emergency department for respiratory distress and generalized weakness. Patient is currently somnolent with decreased responsiveness. Patient currently on 10 L O2 with a trach tube. Apparently after coming to the ER her trach tube was suctioned and she was feeling better but eventually she again became somnolent and now requiring 10 L O2 per minute to maintain her oxygenation. Details clinical history available at this time of my encounter. Per ER record patient has completed COVID-19 vaccination. Her BMP is significant for creatinine of 2.4 which is significantly elevated from her baseline, and UA is suggestive for UTI. Patient is being admitted for further evaluation and management. Past History Past Medical History: hypertension, other (Dementia,H/O Trach with oxygen at home) Past Surgical History: total knee replacement, Other (Trach Placement, Brain norton rgery for pituitary tumor resection) Social history: Patient is a former smoker Family history: Significant for hypertension Review of System: Patient is unable to provide as she appears to be very lethargic: Medications and Allergies Allergies Allergy/AdvReac Type Severity Reaction Status Date / Time celecoxib [From Celebrex] Allergy Unknown Verified 10/24/20 08:38 Home Medications Medication Instructions Recorded Confirmed Last Taken Type Aspirin 81 mg PO DAILY 03/18/20 10/24/20 10/23/20 History Gabapentin 300 mg PO BID 03/18/20 10/24/20 10/23/20 History Pravastatin 10 mg PO DAILY 03/18/20 10/24/20 Unknown History Benzonatate [Tessalon Perles] 100 mg PO Q8HR #21 capsule 03/19/20 10/24/20 10/24/20 14:47 Rx Arformoterol Nebu [Brovana Nebu] 15 mcg IH Q12HRT 30 Days 08/26/20 10/24/20 10/23/20 Rx predniSONE [Deltasone] 40 mg PO DAILY #5 tablet 08/26/20 10/24/20 10/23/20 Rx Metoprolol [Lopressor TAB] 50 mg PO BID tablet 08/29/20 10/24/2010/23/21 Rx amLODIPine 5 mg PO QDAY #30 tablet 08/29/20 10/24/20 10/23/20 Rx Active Meds: Active Medications Amlodipine Besylate (Amlodipine 5 Mg Tab) 5 mg PO QDAY COUNTS INCLUDE 234 BEDS AT THE [facility] Last Admin: 10/24/20 10:30 Dose: 5 mg Documented by: Arformoterol Tartrate (Arformoterol 15 Mcg/2 Ml Nebu) 15 mcg IH Q12HRT COUNTS INCLUDE 234 BEDS AT THE [facility] Benzonatate (Benzonatate 100 Mg Cap) 100 mg PO Q8HR COUNTS INCLUDE 234 BEDS AT THE [facility] Gabapentin (Gabapentin 300 Mg Cap) 300 mg PO BID COUNTS INCLUDE 234 BEDS AT THE [facility] Last Admin: 10/24/20 10:30 Dose: 300 mg Documented by: Metoprolol Tartrate (Metoprolol Tartrate 100 Mg Tab) 50 mg PO BID COUNTS INCLUDE 234 BEDS AT THE [facility] Last Admin: 10/24/20 10:30 Dose: 50 mg Documented by: Pravastatin Sodium (Pravastatin 20 Mg Tab) 10 mg PO QHS COUNTS INCLUDE 234 BEDS AT THE [facility] Exam - Physical Exam Narrative exam: GENERAL: Morbidly obese -Citizen Of [place] female lying on bed appeared to be very lethargic. HEENT: Normocephalic. Atraumatic. No conjunctival congestion or icterus. Patient has dry mucous membranes. NECK: Supple. Trachea midline. Trach in place CHEST/LUNGS: Coarse breath sounds auscultated bilaterally HEART/CARDIOVASCULAR: Regular in rate and rhythm. S1 and S2 positive. ABDOMEN: Abdomen is soft, nontender. Patient has normal bowel sounds. SKIN: There is no rash. Warm and dry. NEURO: Very lethargic MUSCULOSKELETAL: No joint effusion or tenderness. EXTRIMITY: No edema, no cyanosis or clubbing. PSYCH: Unable to assess - Constitutional Vitals: Temp Pulse Resp BP Pulse Ox 98.2 F 100 H 21 165/74 100 10/24/20 08:15 10/24/20 08:30 10/24/20 08:15 10/24/20 09:56 10/24/20 09:56 HEART Score - HEART Score Troponin: Troponin T 0.014 ng/mL (0.00-0.029) 10/24/20 09:00 Results - Labs CBC & Chem 7: 10/24/20 09:00 10/25/20 07:34 Labs: Abnormal lab results 10/24/20 10/24/20 10/24/20 Range/Units 09:00 09:00 09:00 RBC 3.03 L (3.65-5.03) M/mm3 Hgb 8.5 L (10.1-14.3) gm/dl Hct 26.5 L (30.3-42.9) % RDW 16.6 H (13.2-15.2) % Chloride 107.7 H (98-107) mmol/L BUN 34 H (7-17) mg/dL Creatinine 2.4 H (0.6-1.2) mg/dL Glucose 134 H (65-100) mg/dL ALT < 5 L (7-56) units/L Albumin 3.8 L (3.9-5) g/dL Urine WBC (Auto) (0.0-6.0) /HPF Salicylates < 0.3 L (2.8-20.0) mg/dL Acetaminophen (10.0-30.0) ug/mL 10/24/20 10/24/20 Range/Units 09:00 Unknown RBC (3.65-5.03) M/mm3 Hgb (10.1-14.3) gm/dl Hct (30.3-42.9) % RDW (13.2-15.2) % Chloride (98-107) mmol/L BUN (7-17) mg/dL Creatinine (0.6-1.2) mg/dL Glucose (65-100) mg/dL ALT (7-56) units/L Albumin (3.9-5) g/dL Urine WBC (Auto) 34.0 H (0.0-6.0) /HPF Salicylates (2.8-20.0) mg/dL Acetaminophen 5.0 L (10.0-30.0) ug/mL - Imaging and Cardiology Chest x-ray: report reviewed (No acute infiltrates) Assessment and Plan --Acute metabolic encephalopathy, Likely due to severe hypoxia Patient appears very somnolent, will order for CT head if no improvement Continue to monitor clinically --Acute on chronic hypoxic and hypercapnic respiratory failure Likely due to COPD exacerbation Continue oxygen supplementation via trach Chest x-ray without any infiltrates she is on 2-4 L of oxygen at home, now on 10 L of oxygen Pulmonology consult, scheduled inhalers --LAURA, likely due to vasomotor nephropathy start IV fluid, Monitor BMP --COPD exacerbation steroids, Bronchodilators Pulmonology consulted --Hypertension Continue home medications --Morbid obesity, consult nutrition for dietary recommendation --Physical debility with deconditioning, consult PT OT --UTI, sent urine culture blood culture, continue empiric antibiotics --Anemia of chronic disease continue to monitor H&H --Status post trach tube, consult respiratory and pulmonary for trach care --GI and DVT prophylaxis: PPI, SCDs to bilateral lower extremities, Heparin subcu --Dispo: PT/OT ordered
[2020-10-24] MEDS: BENZONATATE 100 MG CAP PO SCH ×2 (14:23→21:48)
[2020-10-24] MEDS: SODIUM CHLORIDE 0.9% 1000 ML 1,000 ML IV SCH (18:16)
[2020-10-24] MEDS: ARFORMOTEROL 15 MCG/2 ML NEBU IH SCH (21:11)
[2020-10-24] MEDS: METOPROLOL TARTRATE 50 MG TAB PO SCH (21:48)
[2020-10-24] MEDS: PRAVASTATIN 20 MG TAB PO SCH (21:48)
[2020-10-25] MEDS: BENZONATATE 100 MG CAP PO SCH ×3 (05:54→22:06)
[2020-10-25] MEDS: SODIUM CHLORIDE 0.9% 1000 ML 1,000 ML IV SCH (05:55)
[2020-10-25] MEDS: ARFORMOTEROL 15 MCG/2 ML NEBU IH SCH ×2 (08:00→21:32)
[2020-10-25 08:02] LABS: Calcium 9.7 mg/dL (8.4-10.2)
[2020-10-25] MEDS ORDERED: SODIUM BICARB 8.4% 50 MEQ/50 ML SYRINGE IV NR (09:30)
[2020-10-25] MEDS ORDERED: SODIUM POLYSTYRENE 15 GM/60 ML ORAL LIQD PO NR (09:30)
[2020-10-25] MEDS: amLODIPine 5 MG TAB PO SCH (09:48)
[2020-10-25] MEDS: GABAPENTIN 300 MG CAP PO SCH ×2 (09:49→22:06)
[2020-10-25] MEDS: METOPROLOL TARTRATE 50 MG TAB PO SCH ×3 (09:49→22:06)
[2020-10-25] MEDS: cefTRIAXone/NS 1 GM/50 ML 1 GM/50 ML BAG IV SCH (09:51)
[2020-10-25] MEDS ORDERED: CALCIUM GLUCONATE 2,000 MG in SODIUM CHLORIDE 0.9% 100 ML IV ONE (10:00)
[2020-10-25] MEDS ORDERED: NON-FORMULARY EACH (Aspirin 81 MG) PO SCH (10:00)
[2020-10-25] MEDS: ASPIRIN EC 81 MG TAB PO SCH (11:21)
--- NOTE | 2020-10-25 11:40 | Progress Note ---
Assessment and Plan --Acute metabolic encephalopathy, resolved Likely due to severe hypoxia Patient appears very somnolent, will order for CT head if no improvement Continue to monitor clinically --Acute on chronic hypoxic and hypercapnic respiratory failure Likely due to COPD exacerbation Continue oxygen supplementation via trach Chest x-ray without any infiltrates she is on 2-4 L of oxygen at home, now on 10 L of oxygen Pulmonology consult, scheduled inhalers --LAURA, Creatinine was 1.3-1.4 back on August 2020 likely due to vasomotor nephropathy start IV fluid, Monitor BMP --Hyperkalemia potassium 5.7 today Ordered for Kayexalate sodium bicarbonate and calcium gluconate --COPD exacerbation steroids, Bronchodilators Pulmonology consulted --Hypertension Continue home medications --Morbid obesity, consult nutrition for dietary recommendation --Physical debility with deconditioning, consult PT OT --UTI, sent urine culture blood culture, continue empiric antibiotics --Anemia of chronic disease continue to monitor H&H --Status post trach tube, consult respiratory and pulmonary for trach care --GI and DVT prophylaxis: PPI, SCDs to bilateral lower extremities, Heparin subcu --Dispo: PT/OT ordered Daily clinical course: 10/25: Mental status significantly improved. Patient remains on 10 L oxygen with trach tube. Continue empiric steroid and nebulizer breathing treatment, antibiotics for UTI. pension manager consulted for placement, follow PT OT recommendation. Potassium 5.7 today -Ordered for Kayexalate sodium bicarbonate and calcium gluconate, repeat BMP tomorrow morning. Subjective Date of service: 10/25/20 Interval history: Patient seen and examined. Medical records and medication list reviewed. No acute event overnight noted by the RN. Patient currently on 8 to 10 L supplemental O2 with trach tube. Patient is tolerating diet. Mental status significantly improved. Patient requesting placement as she is unable to do ADL at home Discussed plan of care at bedside with RN and complex case manager. Objective - Exam Narrative Exam: GENERAL: Morbidly obese -[place] female lying on bed appeared to be in no distress. HEENT: Normocephalic. Atraumatic. No conjunctival congestion or icterus. Patient has dry mucous membranes. NECK: Supple. Trachea midline. Trach in place CHEST/LUNGS: Coarse breath sounds auscultated bilaterally HEART/CARDIOVASCULAR: Regular in rate and rhythm. S1 and S2 positive. ABDOMEN: Abdomen is soft, nontender. Patient has normal bowel sounds. SKIN: There is no rash. Warm and dry. NEURO: No focal deficits follow commands MUSCULOSKELETAL: No joint effusion or tenderness. EXTRIMITY: No edema, no cyanosis or clubbing. PSYCH: Cooperative, alert awake and oriented x3 - Constitutional Vitals: Vital Signs - 12hr 10/25/20 10/25/20 10/25/20 03:28 04:03 05:25 Temperature 97.8 F Pulse Rate 64 51 L Pulse Rate [ Anterior Bilateral Throughout] Pulse Rate [ Posterior Bilateral Throughout] Respiratory 18 18 Rate Respiratory Rate [Anterior Bilateral Throughout] Respiratory Rate [Posterior Bilateral Throughout] Blood Pressure 136/72 Blood Pressure 136/72 [Left] O2 Sat by Pulse 98 Oximetry O2 Sat by Pulse 95 Oximetry [ Assessment] 10/25/20 10/25/20 10/25/20 08:08 08:11 09:41 Temperature Pulse Rate 66 Pulse Rate [ 71 Anterior Bilateral Throughout] Pulse Rate [ 66 Posterior Bilateral Throughout] Respiratory Rate Respiratory 20 Rate [Anterior Bilateral Throughout] Respiratory 22 Rate [Posterior Bilateral Throughout] Blood Pressure 120/53 Blood Pressure [Left] O2 Sat by Pulse 85 Oximetry O2 Sat by Pulse 100 Oximetry [ Assessment] 10/25/20 10/25/20 10/25/20 09:42 09:48 09:50 Temperature Pulse Rate 59 L Pulse Rate [ Anterior Bilateral Throughout] Pulse Rate [ Posterior Bilateral Throughout] Respiratory Rate Respiratory Rate [Anterior Bilateral Throughout] Respiratory Rate [Posterior Bilateral Throughout] Blood Pressure 120/53 120/53 Blood Pressure [Left] O2 Sat by Pulse 94 Oximetry O2 Sat by Pulse Oximetry [ Assessment] - Labs CBC & Chem 7: 10/24/20 09:00 10/26/20 05:40 Labs: Abnormal lab results 10/24/20 10/25/20 Range/Units 17:32 07:34 Sodium 146 H (137-145) mmol/L Potassium 5.9 H D (3.6-5.0) mmol/L Chloride 112.8 H (98-107) mmol/L BUN 34 H (7-17) mg/dL Creatinine 1.8 H (0.6-1.2) mg/dL Glucose 150 H (65-100) mg/dL POC Glucose 184 H (70-105) mg/dL HEART Score - HEART Score Troponin: Troponin T 0.014 ng/mL (0.00-0.029) 10/24/20 09:00
[2020-10-25] MEDS ORDERED: SODIUM CHLORIDE 0.45% 1000 ML 1,000 ML IV SCH (12:00)
--- NOTE | 2020-10-25 12:17 | Consultation ---
History of Present Illness Consult date: 10/25/20 Requesting physician: TERRELL MANZO Reason for consult: hypoxemia History of present illness: 70 y/o female with chronic respiratory failure, trached, not followed in our office but known from one of her last hospital stays secondary to hypoxemia and vent requirement admitted with altered mental state and hypoxemai, found to have UTI and acute renal failure. patient was not able to provide much history on yesterday. Was on 10 liters but down to 6 liters with good sats. Remainder is negative. CXR is stable and unchanged. Past History Past Medical History: other (chronic respiratory failure) Past Surgical History: Other (trach) Social history: no significant social history Family history: no significant family history Medications and Allergies Allergies Allergy/AdvReac Type Severity Reaction Status Date / Time celecoxib [From Celebrex] Allergy Unknown Verified 10/24/20 08:38 Home Medications Medication Instructions Recorded Confirmed Last Taken Type Aspirin 81 mg PO DAILY 03/18/20 10/24/20 10/23/20 History Gabapentin 300 mg PO BID 03/18/20 10/24/20 10/23/20 History Pravastatin 10 mg PO DAILY 03/18/20 10/24/20 Unknown History Benzonatate [Tessalon Perles] 100 mg PO Q8HR #21 capsule 03/19/20 10/24/20 10/24/20 14:47 Rx Arformoterol Nebu [Brovana Nebu] 15 mcg IH Q12HRT 30 Days 08/26/20 10/24/20 10/23/20 Rx predniSONE [Deltasone] 40 mg PO DAILY #5 tablet 08/26/20 10/24/20 10/23/20 Rx Metoprolol [Lopressor TAB] 50 mg PO BID tablet 08/29/20 10/24/20 10/23/20 Rx amLODIPine 5 mg PO QDAY #30 tablet 08/29/20 10/24/20 10/23/20 Rx Active Meds: Active Medications Albuterol/Ipratropium (Ipratropium/Albuterol Sulfate 3 Ml Ampul.Neb) 1 ampul IH Q6HRT [facility] Amlodipine Besylate (Amlodipine 5 Mg Tab) 5 mg PO QDAY [facility] Last Admin: 10/25/20 09:48 Dose: 5 mg Documented by: Arformoterol Tartrate (Arformoterol 15 Mcg/2 Ml Nebu) 15 mcg IH Q12HRT [facility] Last Admin: 10/25/20 08:00 Dose: 15 mcg Documented by: Aspirin (Aspirin Ec 81 Mg Tab) 81 mg PO QDAY [facility] Last Admin: 10/25/20 11:21 Dose: 81 mg Documented by: Benzonatate (Benzonatate 100 Mg Cap) 100 mg PO Q8HR [facility] Last Admin: 10/25/20 05:54 Dose: 100 mg Documented by: Gabapentin (Gabapentin 300 Mg Cap) 300 mg PO BID [facility] Last Admin: 10/25/20 09:49 Dose: 300 mg Documented by: Ceftriaxone Sodium (Rocephin/Ns 1 Gm/50 Ml) 1 gm in 50 mls @ 100 mls/hr IV DAILY [facility]; Protocol Last Admin: 10/25/20 09:51 Dose: 100 mls/hr Documented by: Sodium Chloride (Nacl 0.45% 1000 Ml) 1,000 mls @ 75 mls/hr IV DIRECT GILBERTO Metoprolol Tartrate (Metoprolol Tartrate 50 Mg Tab) 50 mg PO BID [facility] Last Admin: 10/25/20 09:50 Dose: Not Given Documented by: Pravastatin Sodium (Pravastatin 20 Mg Tab) 10 mg PO QHS [facility] Last Admin: 10/24/20 21:48 Dose: 10 mg Documented by: Sodium Polystyrene Sulfonate (Sodium Polystyrene 15 Gm/60 Ml Oral Liqd) 15 gm PO Q6HR PRN PRN Reason: Hyperkalemia Physical Examination Vital signs: Vital Signs Pulse Resp Pulse Ox 113 H 17 100 10/24/20 08:14 10/24/20 08:14 10/24/20 08:14 ENT: other (trached) Ascultation: Left: diminished breath sounds (base), Bilateral: clear Results - Laboratory Findings CBC and BMP: 10/24/20 09:00 10/25/20 07:34 PT/INR, D-dimer PT 13.7 Sec. (12.2-14.9) 10/24/20 09:00 INR 1.06 (0.87-1.13) 10/24/20 09:00 Abnormal lab findings: Abnormal Labs 10/24/20 10/24/20 10/24/20 09:00 09:00 09:00 RBC 3.03 L Hgb 8.5 L Hct 26.5 L RDW 16.6 H Sodium Potassium Chloride 107.7 H BUN 34 H Creatinine 2.4 H Glucose 134 H POC Glucose ALT < 5 L Albumin 3.8 L Urine WBC (Auto) Salicylates < 0.3 L Acetaminophen 10/24/20 10/24/20 10/24/20 09:00 17:32 Unknown RBC Hgb Hct RDW Sodium Potassium Chloride BUN Creatinine Glucose POC Glucose 184 H ALT Albumin Urine WBC (Auto) 34.0 H Salicylates Acetaminophen 5.0 L 10/25/20 07:34 RBC Hgb Hct RDW Sodium 146 H Potassium 5.9 H D Chloride 112.8 H BUN 34 H Creatinine 1.8 H Glucose 150 H POC Glucose ALT Albumin Urine WBC (Auto) Salicylates Acetaminophen Assessment and Plan 70 y/o female with acute on chronic respiratory failure, secondary to acute urinary tract infection leading to acute renal insufficiency. 1. Treat UTI 2. Continue to wean FiO2 for sats >88% until patient back to baseline 3. Start Pulmicort in addition to brovana or scheduled duonebs, does not need both. 4. Will follow.
[2020-10-25] MEDS ORDERED: IPRATROPIUM/ALBUTEROL SULFATE 3 ML AMPUL.NEB IH SCH (14:00)
[2020-10-25] MEDS ORDERED: SODIUM POLYSTYRENE 15 GM/60 ML ORAL LIQD PO PRN (14:00)
[2020-10-25] MEDS: BUDESONIDE 0.5 MG/2 ML NEBU IH SCH (21:32)
[2020-10-25] MEDS: PRAVASTATIN 20 MG TAB PO SCH (22:06)
[2020-10-26] MEDS: BENZONATATE 100 MG CAP PO SCH ×3 (05:37→21:49)
[2020-10-26 06:35] LABS: Calcium 9.4 mg/dL (8.4-10.2)
[2020-10-26] MEDS: ARFORMOTEROL 15 MCG/2 ML NEBU IH SCH ×2 (07:57→21:35)
[2020-10-26] MEDS: BUDESONIDE 0.5 MG/2 ML NEBU IH SCH ×2 (07:57→21:35)
[2020-10-26] MEDS: GABAPENTIN 300 MG CAP PO SCH ×2 (10:56→21:50)
[2020-10-26] MEDS: amLODIPine 5 MG TAB PO SCH (10:56)
[2020-10-26] MEDS: cefTRIAXone/NS 1 GM/50 ML 1 GM/50 ML BAG IV SCH (10:56)
[2020-10-26] MEDS: METOPROLOL TARTRATE 50 MG TAB PO SCH ×2 (10:56→21:50)
[2020-10-26] MEDS: ASPIRIN EC 81 MG TAB PO SCH (10:56)
[2020-10-26] MEDS: DEXTROSE 5% IN WATER 1,000 ML IV SCH (10:57)
--- NOTE | 2020-10-26 13:03 | Progress Note ---
Assessment and Plan 70 y/o female with acute on chronic respiratory failure, secondary to acute urinary tract infection leading to acute renal insufficiency. 10/26/20: Continue treatment for UTI. If oxygen requirement continues to increase or not able to wean, will check repeat CXR. Will continue to follow. 1. Treat UTI 2. Continue to wean FiO2 for sats >88% until patient back to baseline 3. Start Pulmicort in addition to brovana or scheduled duonebs, does not need both. 4. Will follow. Subjective Date of service: 10/26/20 Interval history: No acute events. Last night, oxygen bumped up to 10 liters from 6. No documentation as to exactly why. FiO2 at 40% from 35. Sats are good. No fever and renal function improving. Objective Vital Signs - 12hr 10/26/20 10/26/20 10/26/20 03:14 04:10 07:58 Temperature 98.6 F Pulse Rate 64 Pulse Rate [ Posterior Bilateral Throughout] Respiratory 24 Rate Respiratory Rate [Posterior Bilateral Throughout] Blood Pressure 142/67 O2 Sat by Pulse 97 97 Oximetry O2 Sat by Pulse 92 Oximetry [ Assessment] 10/26/20 10/26/20 07:59 08:01 Temperature Pulse Rate Pulse Rate [ 88 Posterior Bilateral Throughout] Respiratory Rate Respiratory 18 Rate [Posterior Bilateral Throughout] Blood Pressure O2 Sat by Pulse Oximetry O2 Sat by Pulse 97 Oximetry [ Assessment] ENT: other (trached) Ascultation: Left: diminished breath sounds (base), Bilateral: clear CBC and BMP: 10/24/20 09:00 10/26/20 05:40 ABG, PT/INR, D-dimer: PT/INR, D-dimer PT 13.7 Sec. (12.2-14.9) 10/24/20 09:00 INR 1.06 (0.87-1.13) 10/24/20 09:00 Abnormal lab findings: Abnormal Labs 10/24/20 10/24/20 10/24/20 09:00 09:00 09:00 RBC 3.03 L Hgb 8.5 L Hct 26.5 L RDW 16.6 H Sodium Potassium Chloride 107.7 H Carbon Dioxide BUN 34 H Creatinine 2.4 H Glucose 134 H POC Glucose ALT < 5 L Albumin 3.8 L Urine WBC (Auto) Salicylates < 0.3 L Acetaminophen 10/24/20 10/24/20 10/24/20 09:00 17:32 Unknown RBC Hgb Hct RDW Sodium Potassium Chloride Carbon Dioxide BUN Creatinine Glucose POC Glucose 184 H ALT Albumin Urine WBC (Auto) 34.0 H Salicylates Acetaminophen 5.0 L 10/25/20 10/26/20 07:34 05:40 RBC Hgb Hct RDW Sodium 146 H 148 H Potassium 5.9 H D Chloride 112.8 H 109.4 H Carbon Dioxide 33 H BUN 34 H 31 H Creatinine 1.8 H 1.6 H Glucose 150 H 105 H POC Glucose ALT Albumin Urine WBC (Auto) Salicylates Acetaminophen
--- NOTE | 2020-10-26 20:49 | Progress Note ---
Assessment and Plan This is a 70-year-old female with hypertension, peripheral neuropathy, ? dementia, chronic respiratory failure s/p trach with home oxygen, s/p pituitary tumor resection, who presented to the emergency department for respiratory distress and generalized weakness. --Acute metabolic encephalopathy, resolved Likely due to severe hypoxia Patient appears very somnolent, will order for CT head if no improvement Continue to monitor clinically --Acute on chronic hypoxic and hypercapnic respiratory failure Likely due to COPD exacerbation Continue oxygen supplementation via trach Chest x-ray without any infiltrates she is on 2-4 L of oxygen at home, now on 10 L of oxygen Pulmonology consult, scheduled inhalers --LAURA, resolving Creatinine was 1.3-1.4 back on August 2020 likely due to vasomotor nephropathy cont IV fluid, Monitor BMP --Hyperkalemia with potassium 5.7- resolved s/p Kayexalate sodium bicarbonate and calcium gluconate --Hypernatremia, continue D5W at low rate, follow BMP --COPD exacerbation steroids, Bronchodilators Pulmonology consulted --Hypertension Continue home medications --Morbid obesity, consult nutrition for dietary recommendation --Physical debility with deconditioning, consult PT OT --UTI, sent urine culture blood culture, continue empiric antibiotics --Anemia of chronic disease continue to monitor H&H --Status post trach tube, consult respiratory and pulmonary for trach care --GI and DVT prophylaxis: PPI, SCDs to bilateral lower extremities, Heparin subcu --Dispo: PT/OT ordered Daily clinical course: 10/25: Mental status significantly improved. Patient remains on 10 L oxygen with trach tube. Continue empiric steroid and nebulizer breathing treatment, antibio tics for UTI. area operations manager consulted for placement, follow PT OT recommendation. Potassium 5.7 today -Ordered for Kayexalate sodium bicarbonate and calcium gluconate, repeat BMP tomorrow morning. 10/26: Patient remains on 10 L supplemental O2, potassium level improved, creatinine trending down. Change IV fluid to D5W at 48 mill per hour for mild hypernatremia. PT commended subacute rehab. Case management working placement. Pulmonary following. Wean off O2 as tolerated. Subjective Date of service: 10/26/20 Interval history: Patient seen and examined. Medical records and medication list reviewed. No acute event overnight noted by the RN. Patient remains on 8 to 10 L supplemental O2 with trach tube. Patient is t olerating diet. Mental status stable. Patient requesting placement as she is unable to do ADL at home PT recommended subacute rehab Discussed plan of care at bedside with RN and casework supervisor. Objective - Exam Narrative Exam: GENERAL: Morbidly obese -[place] female lying on bed appeared to be in no distress. HEENT: Normocephalic. Atraumatic. No conjunctival congestion or icterus. Patient has dry mucous membranes. NECK: Supple. Trachea midline. Trach in place CHEST/LUNGS: Coarse breath sounds auscultated bilaterally HEART/CARDIOVASCULAR: Regular in rate and rhythm. S1 and S2 positive. ABDOMEN: Abdomen is soft, nontender. Patient has normal bowel sounds. SKIN: There is no rash. Warm and dry. NEURO: No focal deficits follow commands MUSCULOSKELETAL: No joint effusion or tenderness. EXTRIMITY: No edema, no cyanosis or clubbing. PSYCH: Cooperative, alert awake and oriented x3 - Constitutional Vitals: Vital Signs - 12hr 10/26/20 10/26/20 10/26/20 10:00 11:20 15:55 Temperature 98.3 F 98.8 F Pulse Rate 78 78 Respiratory 20 28 H 18 Rate Blood Pressure 146/67 132/59 O2 Sat by Pulse 99 96 98 Oximetry - Labs CBC & Chem 7: 10/24/20 09:00 10/26/20 05:40 Labs: Abnormal lab results 10/26/20 Range/Units 05:40 Sodium 148 H (137-145) mmol/L Chloride 109.4 H (98-107) mmol/L Carbon Dioxide 33 H (22-30) mmol/L BUN 31 H (7-17) mg/dL Creatinine 1.6 H (0.6-1.2) mg/dL Glucose 105 H (65-100) mg/dL HEART Score - HEART Score Troponin: Troponin T 0.014 ng/mL (0.00-0.029) 10/24/20 09:00
[2020-10-26] MEDS: PRAVASTATIN 20 MG TAB PO SCH (21:49)
[2020-10-27] MEDS: BENZONATATE 100 MG CAP PO SCH ×4 (06:20→22:31)
[2020-10-27] MEDS: BUDESONIDE 0.5 MG/2 ML NEBU IH SCH ×2 (08:52→21:45)
[2020-10-27] MEDS: ARFORMOTEROL 15 MCG/2 ML NEBU IH SCH ×2 (08:52→21:45)
[2020-10-27] MEDS: ASPIRIN EC 81 MG TAB PO SCH (09:47)
[2020-10-27] MEDS: cefTRIAXone/NS 1 GM/50 ML 1 GM/50 ML BAG IV SCH (09:47)
[2020-10-27] MEDS: METOPROLOL TARTRATE 50 MG TAB PO SCH ×2 (09:48→22:31)
[2020-10-27] MEDS: GABAPENTIN 300 MG CAP PO SCH ×2 (09:48→22:31)
[2020-10-27] MEDS: amLODIPine 5 MG TAB PO SCH (09:48)
--- NOTE | 2020-10-27 10:06 | Progress Note ---
Assessment and Plan 70 y/o female with acute on chronic respiratory failure, secondary to acute urinary tract infection leading to acute renal insufficiency. 10/27/20: pulm status is stable to improving. Not sure of liter flow baseline at home, but closer to it now. Will see as needed over the weekend. Discharge once other issues have resolved. Definitely stable to improving pulm lee. 10/26/20: Continue treatment for UTI. If oxygen requirement continues to increase or not able to wean, will check repeat CXR. Will continue to follow. 1. Treat UTI 2. Continue to wean FiO2 for sats >88% until patient back to baseline 3. Start Pulmicort in addition to brovana or scheduled duonebs, does not need both. 4. Will follow. Subjective Date of service: 10/27/20 Interval history: Now down to 5 liters on TC. Good sats. Renal function continues to improve. Objective Vital Signs - 12hr 10/27/20 10/27/20 10/27/20 02:32 06:16 08:52 Temperature 98.1 F Pulse Rate 69 Pulse Rate [ 87 Anterior Bilateral Throughout] Respiratory 25 H Rate Respiratory 20 Rate [Anterior Bilateral Throughout] Blood Pressure 138/62 O2 Sat by Pulse 99 100 Oximetry O2 Sat by Pulse 97 Oximetry [ Assessment] 10/27/20 10/27/20 09:44 09:45 Temperature 98.3 F Pulse Rate 80 Pulse Rate [ Anterior Bilateral Throughout] Respiratory 19 Rate Respiratory Rate [Anterior Bilateral Throughout] Blood Pressure 152/75 O2 Sat by Pulse 98 97 Oximetry O2 Sat by Pulse Oximetry [ Assessment] ENT: other (trached) Ascultation: Left: diminished breath sounds (base), Bilateral: clear CBC and BMP: 10/24/20 09:00 10/26/20 05:40 ABG, PT/INR, D-dimer: PT/INR, D-dimer PT 13.7 Sec. (12.2-14.9) 10/24/20 09:00 INR 1.06 (0.87-1.13) 10/24/20 09:00 Abnormal lab findings: Abnormal Labs 10/24/20 10/24/20 10/24/20 09:00 09:00 09:00 RBC 3.03 L Hgb 8.5 L Hct 26.5 L RDW 16.6 H Sodium Potassium Chloride 107.7 H Carbon Dioxide BUN 34 H Creatinine 2.4 H Glucose 134 H POC Glucose ALT < 5 L Albumin 3.8 L Urine WBC (Auto) Salicylates < 0.3 L Acetaminophen 10/24/20 10/24/20 10/24/20 09:00 17:32 Unknown RBC Hgb Hct RDW Sodium Potassium Chloride Carbon Dioxide BUN Creatinine Glucose POC Glucose 184 H ALT Albumin Urine WBC (Auto) 34.0 H Salicylates Acetaminophen 5.0 L 10/25/20 10/26/20 07:34 05:40 RBC Hgb Hct RDW Sodium 146 H 148 H Potassium 5.9 H D Chloride 112.8 H 109.4 H Carbon Dioxide 33 H BUN 34 H 31 H Creatinine 1.8 H 1.6 H Glucose 150 H 105 H POC Glucose ALT Albumin Urine WBC (Auto) Salicylates Acetaminophen
--- NOTE | 2020-10-27 12:09 | Progress Note ---
Subjective Date of service: 10/27/20 Interval history: This is a 70-year-old female with hypertension, peripheral neuropathy, ? dementia, chronic respiratory failure s/p trach with home oxygen, s/p pituitary tumor resection, who presented to the emergency department for respiratory distress and generalized weakness. --Acute metabolic encephalopathy, resolved Likely due to severe hypoxia Patient appears very somnolent, will order for CT head if no improvement Continue to monitor clinically --Acute on chronic hypoxic and hypercapnic respiratory failure Likely due to COPD exacerbation Continue oxygen supplementation via trach Patient is on oxygen at 8 L/min via trach collar Chest x-ray without any infiltrates she is on 2-4 L of oxygen at home Pulmonology consulted, Note reviewed Continue neb treatments with arformoterol and budesonide solutions Slow improvement --LAURA, versus acute on chronic kidney disease Creatinine was 1.3-1.4 back on August 2020 Serum creatinine down to 1.6 yesterday No lab results with today Avoid nephrotoxins Monitor lab Recheck renal function in a.m. cont IV fluid, Monitor BMP --Hyperkalemia with potassium 5.7- resolved s/p Kayexalate sodium bicarbonate and calcium gluconate Monitor electrolytes --Hypernatremia, continue D5W at low rate, follow BMP No significant improvement serum sodium was 148 yesterday Recheck electrolytes in a.m. --COPD exacerbation steroids, Bronchodilators Pulmonology consulted and note reviewed --Hypertension Continue home medications --Morbid obesity, due to excess calories Counseling on weight loss, diet and exercise if possible was emphasized --Physical debility with deconditioning, PT note reviewed Patient was recommended subacute rehab placement --UTI, sent urine culture blood culture, continue empiric antibiotics Urine cultures pending Blood cultures no growth to date --Anemia of normocytic type No overt bleed monitor H&H --Status post trach tube, Tracheostomy care and continue oxygen via trach collar --GI and DVT prophylaxis: PPI, SCDs to bilateral lower extremities, Heparin subcu --Dispo: PT/OT ordered Daily clinical course: 10/25: Mental status significantly improved. Patient remains on 10 L oxygen with trach tube. Continue empiric steroid and nebulizer breathing treatment, antibiotics for UTI. clinical product manager consulted for placement, follow PT OT recommendation. Potassium 5.7 today -Ordered for Kayexalate sodium bicarbonate and calcium gluconate, repeat BMP tomorrow morning. 5/20: Patient remains on 10 L supplemental O2, potassium level improved, creatinine trending down. Change IV fluid to D5W at 48 mill per hour for mild hypernatremia. PT commended subacute rehab. Case management working placement. Pulmonary following. Wean off O2 as tolerated. 10/27 patient is alert and oriented, she appears mildly short of breath and coughing intermittently. She is on 8 L oxygen via tracheostomy Pulmonary note reviewed. Lab results reviewed. no lab tests were ordered for today. Patient denies any chest pain, fever or chills. She denies any nausea or abdominal pain Objective - Constitutional Vitals: Vital Signs - 12hr 10/27/20 10/27/20 10/27/20 02:32 06:16 08:52 Temperature 98.1 F Pulse Rate 69 Pulse Rate [ 87 Anterior Bilateral Throughout] Respiratory 25 H Rate Respiratory 20 Rate [Anterior Bilateral Throughout] Blood Pressure 138/62 O2 Sat by Pulse 99 100 Oximetry O2 Sat by Pulse 97 Oximetry [ Assessment] 10/27/20 10/27/20 09:44 09:45 Temperature 98.3 F Pulse Rate 80 Pulse Rate [ Anterior Bilateral Throughout] Respiratory 19 Rate Respiratory Rate [Anterior Bilateral Throughout] Blood Pressure 152/75 O2 Sat by Pulse 98 97 Oximetry O2 Sat by Pulse Oximetry [ Assessment] General appearance: Present: mild distress, well-nourished - EENT Eyes: PERRL, EOM intact ENT: hearing intact - Neck Neck: supple, normal ROM, other (Has a permanent tracheostome), no masses or JVD - Respiratory Respiratory effort: other (Mildly short of breath) Respiratory: bilateral: CTA, diminished, negative: rhonchi, wheezing - Cardiovascular Rhythm: regular Heart Sounds: Present: S1 & S2 Extremities: No edema - Gastrointestinal General gastrointestinal: Present: soft, non-tender Rectal Exam: deferred - Genitourinary Female genitourinary: deferred - Integumentary Integumentary: clear - Musculoskeletal Musculoskeletal: strength equal bilaterally - Neurologic Neurologic: no focal deficits - Psychiatric Psychiatric: appropriate mood/affect - Labs CBC & Chem 7: 10/24/20 09:00 10/26/20 05:40 HEART Score - HEART Score Troponin: Troponin T 0.014 ng/mL (0.00-0.029) 10/24/20 09:00
[2020-10-27] MEDS: DEXTROSE 5% IN WATER 1,000 ML IV SCH (12:46)
[2020-10-27 14:55] LABS: Calcium 8.7 mg/dL (8.4-10.2)
[2020-10-27] MEDS: PRAVASTATIN 20 MG TAB PO SCH (22:31)
[2020-10-28 05:12] LABS: Hematocrit 25.1 % (30.3-42.9); Hemoglobin 8.2 gm/dl (10.1-14.3); Mean Corpuscular HGB Conc 33 % (30-34); Mean Corpuscular Volume 87 fl (79-97); Platelet Count 147 K/mm3 (140-440); Red Blood Count 2.89 M/mm3 (3.65-5.03); Red Cell Distribution Width 16.6 % (13.2-15.2)
[2020-10-28 05:32] LABS: Calcium 8.7 mg/dL (8.4-10.2)
[2020-10-28] MEDS: BUDESONIDE 0.5 MG/2 ML NEBU IH SCH ×2 (08:16→19:56)
[2020-10-28] MEDS: ARFORMOTEROL 15 MCG/2 ML NEBU IH SCH ×2 (08:16→19:56)
--- NOTE | 2020-10-28 11:09 | Progress Note ---
Subjective Date of service: 10/28/20 Interval history: This is a 70-year-old female with hypertension, peripheral neuropathy, ? dementia, chronic respiratory failure s/p trach with home oxygen, s/p pituitary tumor resection, who presented to the emergency department for respiratory distress and generalized weakness. --Acute metabolic encephalopathy, resolved Likely due to severe hypoxia --Acute on chronic hypoxic and hypercapnic respiratory failure Likely due to COPD exacerbation Continue oxygen supplementation via trach Patient is on oxygen at 8 L/min via trach collar Chest x-ray without any infiltrates she is on 2-4 L of oxygen at home Pulmonary consulted, Note reviewed Continue neb treatments with arformoterol and budesonide solutions Slow improvement --LAURA, versus acute on chronic kidney disease Creatinine was 1.3-1.4 back on August 2020 Serum creatinine down to 1.3 today Avoid nephrotoxins We will discontinue IV fluids --Hyperkalemia with potassium 5.7- resolved s/p Kayexalate sodium bicarbonate and calcium gluconate Monitor electrolytes Hypokalemia Mild Likely secondary to Kayexalate therapy and IV fluids We will supplement potassium --Hypernatremia Improved. --COPD exacerbation Improving very well continue budesonide and arformoterol solutions via nebulizer Pulmonology consulted and note reviewed --Hypertension Continue home medications --Morbid obesity, due to excess calories Counseling on weight loss, diet and exercise if possible was emphasized --Physical debility with deconditioning, PT note reviewed Patient was recommended subacute rehab placement --UTI, sent urine culture blood culture, continue empiric antibiotics Urine cultures pending Blood cultures no growth to date --Anemia of normocytic type No overt bleed monitor H&H --Status post trach tube, Tracheostomy care and continue oxygen via trach collar --GI and DVT prophylaxis: PPI, SCDs to bilateral lower extremities, Heparin subcu --Dispo: PT/OT ordered Daily clinical course: 10/25: Mental status significantly improved. Patient remains on 10 L oxygen with trach tube. Continue empiric steroid and nebulizer breathing treatment, antibiotics for UTI. mis manager consulted for placement, follow PT OT recommendation. Potassium 5.7 today -Ordered for Kayexalate sodium bicarbonate and calcium gluconate, repeat BMP tomorrow morning. 10/26: Patient remains on 10 L supplemental O2, potassium level improved, creatinine trending down. Change IV fluid to D5W at 48 mill per hour for mild hypernatremia. PT commended subacute rehab. Case management working placement. Pulmonary following. Wean off O2 as tolerated. 10/27 patient is alert and oriented, she appears mildly short of breath and coughing intermittently. She is on 8 L oxygen via tracheostomy Pulmonary note reviewed. Lab results reviewed. no lab tests were ordered for today. Patient denies any chest pain, fever or chills. She denies any nausea or abdominal pain 10/28 patient is alert and oriented and not in any distress. She offers no specific complaints and states she feels a lot better. Still she is on 8 L oxygen via trach collar. States shortness of breath and cough is better. Denies fever or chills or chest pain. Lab results reviewed. For subacute rehab placement Objective - Constitutional Vitals: Vital Signs - 12hr 10/27/20 10/28/20 10/28/20 23:28 04:03 06:06 Temperature 98.8 F 98.9 F Pulse Rate 69 67 Pulse Rate [ Anterior Bilateral Throughout] Pulse Rate [ Posterior Bilateral Throughout] Respiratory 22 20 Rate Respiratory Rate [Anterior Bilateral Throughout] Respiratory Rate [Posterior Bilateral Throughout] Blood Pressure 146/76 148/64 O2 Sat by Pulse 97 100 97 Oximetry O2 Sat by Pulse 99 Oximetry [ Assessment] 10/28/20 10/28/20 10/28/20 08:15 08:28 08:41 Temperature Pulse Rate Pulse Rate [ 66 Anterior Bilateral Throughout] Pulse Rate [ 65 Posterior Bilateral Throughout] Respiratory Rate Respiratory 18 Rate [Anterior Bilateral Throughout] Respiratory 16 Rate [Posterior Bilateral Throughout] Blood Pressure O2 Sat by Pulse 99 Oximetry O2 Sat by Pulse 99 Oximetry [ Assessment] General appearance: Present: no acute distress, well-nourished - EENT Eyes: PERRL, EOM intact ENT: hearing intact - Neck Neck: supple, normal ROM, other (Has a tracheostomy tube), no masses or JVD - Respiratory Respiratory: bilateral: CTA, diminished, negative: rales, rhonchi - Cardiovascular Rhythm: regular Heart Sounds: Present: S1 & S2 Extremities: No edema - Gastrointestinal General gastrointestinal: Present: soft, non-tender Rectal Exam: deferred - Genitourinary Female genitourinary: deferred - Integumentary Integumentary: clear - Musculoskeletal Musculoskeletal: strength equal bilaterally - Neurologic Neurologic: no focal deficits - Psychiatric Psychiatric: appropriate mood/affect - Labs CBC & Chem 7: 10/28/20 04:42 10/28/20 04:42 Labs: Abnormal lab results 10/27/20 10/28/20 10/28/20 Range/Units 14:02 04:42 04:42 RBC 2.89 L (3.65-5.03) M/mm3 Hgb 8.2 L (10.1-14.3) gm/dl Hct 25.1 L (30.3-42.9) % RDW 16.6 H (13.2-15.2) % Potassium 3.3 L (3.6-5.0) mmol/L Carbon Dioxide 33 H 33 H (22-30) mmol/L BUN 22 H 19 H (7-17) mg/dL Creatinine 1.4 H 1.3 H (0.6-1.2) mg/dL Glucose 112 H 120 H (65-100) mg/dL HEART Score - HEART Score Troponin: Troponin T 0.014 ng/mL (0.00-0.029) 10/24/20 09:00
[2020-10-28] MEDS: METOPROLOL TARTRATE 50 MG TAB PO SCH ×2 (12:12→22:00)
[2020-10-28] MEDS: ASPIRIN EC 81 MG TAB PO SCH (12:12)
[2020-10-28] MEDS: GABAPENTIN 300 MG CAP PO SCH ×2 (12:13→22:29)
[2020-10-28] MEDS: amLODIPine 5 MG TAB PO SCH (12:13)
[2020-10-28] MEDS: cefTRIAXone/NS 1 GM/50 ML 1 GM/50 ML BAG IV SCH (12:13)
--- NOTE | 2020-10-28 12:41 | Progress Note ---
Assessment and Plan 70 y/o female with acute on chronic respiratory failure, secondary to acute urinary tract infection leading to acute renal insufficiency. 10/28/20: Pulm status stable, can wean down TC more. Suggest speech consult for PMV if patient was truly on nasal cannula at home and not TC. Otherwise, should be ready for discharge soon. 10/27/20: pulm status is stable to improving. Not sure of liter flow baseline at home, but closer to it now. Will see as needed over the weekend. Discharge once other issues have resolved. Definitely stable to improving pulm lee. 10/26/20: Continue treatment for UTI. If oxygen requirement continues to increase or not able to wean, will check repeat CXR. Will continue to follow. 1. Treat UTI 2. Continue to wean FiO2 for sats >88% until patient back to baseline 3. Start Pulmicort in addition to brovana or scheduled duonebs, does not need both. 4. Will follow. Subjective Date of service: 10/28/20 Interval history: No acute events. Stable on 5 liters via TC. She was on this yesterday as well. Objective Vital Signs - 12hr 10/28/20 10/28/20 10/28/20 04:03 06:06 08:15 Temperature 98.9 F Pulse Rate 67 Pulse Rate [ 66 Anterior Bilateral Throughout] Pulse Rate [ 65 Posterior Bilateral Throughout] Respiratory 20 Rate Respiratory 18 Rate [Anterior Bilateral Throughout] Respiratory 16 Rate [Posterior Bilateral Throughout] Blood Pressure 148/64 O2 Sat by Pulse 100 97 Oximetry O2 Sat by Pulse 99 Oximetry [ Assessment] 10/28/20 10/28/20 10/28/20 08:28 08:41 12:09 Temperature 99.0 F Pulse Rate 69 Pulse Rate [ Anterior Bilateral Throughout] Pulse Rate [ Posterior Bilateral Throughout] Respiratory 20 Rate Respiratory Rate [Anterior Bilateral Throughout] Respiratory Rate [Posterior Bilateral Throughout] Blood Pressure 154/73 O2 Sat by Pulse 99 97 Oximetry O2 Sat by Pulse 99 Oximetry [ Assessment] 10/28/20 10/28/20 12:12 12:13 Temperature Pulse Rate 75 Pulse Rate [ Anterior Bilateral Throughout] Pulse Rate [ Posterior Bilateral Throughout] Respiratory Rate Respiratory Rate [Anterior Bilateral Throughout] Respiratory Rate [Posterior Bilateral Throughout] Blood Pressure 154/73 154/73 O2 Sat by Pulse Oximetry O2 Sat by Pulse Oximetry [ Assessment] ENT: other (trached) Ascultation: Left: diminished breath sounds (base), Bilateral: clear CBC and BMP: 10/28/20 04:42 10/28/20 04:42 ABG, PT/INR, D-dimer: PT/INR, D-dimer PT 13.7 Sec. (12.2-14.9) 10/24/20 09:00 INR 1.06 (0.87-1.13) 10/24/20 09:00 Abnormal lab findings: Abnormal Labs 10/24/20 10/24/20 10/24/20 09:00 09:00 09:00 RBC 3.03 L Hgb 8.5 L Hct 26.5 L RDW 16.6 H Sodium Potassium Chloride 107.7 H Carbon Dioxide BUN 34 H Creatinine 2.4 H Glucose 134 H POC Glucose ALT < 5 L Albumin 3.8 L Urine WBC (Auto) Salicylates < 0.3 L Acetaminophen 10/24/20 10/24/20 10/24/20 09:00 17:32 Unknown RBC Hgb Hct RDW Sodium Potassium Chloride Carbon Dioxide BUN Creatinine Glucose POC Glucose 184 H ALT Albumin Urine WBC (Auto) 34.0 H Salicylates Acetaminophen 5.0 L 10/25/20 10/26/20 10/27/20 07:34 05:40 14:02 RBC Hgb Hct RDW Sodium 146 H 148 H Potassium 5.9 H D Chloride 112.8 H 109.4 H Carbon Dioxide 33 H 33 H BUN 34 H 31 H 22 H Creatinine 1.8 H 1.6 H 1.4 H Glucose 150 H 105 H 112 H POC Glucose ALT Albumin Urine WBC (Auto) Salicylates Acetaminophen 10/28/20 10/28/20 04:42 04:42 RBC 2.89 L Hgb 8.2 L Hct 25.1 L RDW 16.6 H Sodium Potassium 3.3 L Chloride Carbon Dioxide 33 H BUN 19 H Creatinine 1.3 H Glucose 120 H POC Glucose ALT Albumin Urine WBC (Auto) Salicylates Acetaminophen
[2020-10-28] MEDS: BENZONATATE 100 MG CAP PO SCH ×2 (18:31→22:00)
[2020-10-28] MEDS: DEXTROSE 5% IN WATER 1,000 ML IV SCH (18:32)
[2020-10-28] MEDS: PRAVASTATIN 20 MG TAB PO SCH (22:29)
[2020-10-29] MEDS: BENZONATATE 100 MG CAP PO SCH ×4 (05:41→21:51)
[2020-10-29] MEDS: ARFORMOTEROL 15 MCG/2 ML NEBU IH SCH ×2 (08:30→19:40)
[2020-10-29] MEDS: BUDESONIDE 0.5 MG/2 ML NEBU IH SCH ×2 (08:30→19:40)
[2020-10-29] MEDS: cefTRIAXone/NS 1 GM/50 ML 1 GM/50 ML BAG IV SCH (09:43)
[2020-10-29] MEDS: ASPIRIN EC 81 MG TAB PO SCH (09:43)
[2020-10-29] MEDS: METOPROLOL TARTRATE 50 MG TAB PO SCH ×2 (09:44→21:52)
[2020-10-29] MEDS: amLODIPine 10 MG TAB PO SCH (09:44)
[2020-10-29] MEDS: GABAPENTIN 300 MG CAP PO SCH ×2 (09:45→21:51)
--- NOTE | 2020-10-29 10:07 | Progress Note ---
Subjective Date of service: 10/29/20 Interval history: This is a 70-year-old female with hypertension, peripheral neuropathy, ? dementia, chronic respiratory failure s/p trach with home oxygen, s/p pituitary tumor resection, who presented to the emergency department for respiratory distress and generalized weakness. --Acute metabolic encephalopathy, resolved Likely due to severe hypoxia --Acute on chronic hypoxic and hypercapnic respiratory failure Likely due to COPD exacerbation Continue oxygen supplementation via trach Patient is on oxygen at 5 L/min via trach collar Continue weaning as tolerated Chest x-ray reviewed she is on 2-4 L of oxygen at home Pulmonary consulted, Note reviewed Continue neb treatments with arformoterol and budesonide solutions Slow improvement --LAURA, versus acute on chronic kidney disease Creatinine was 1.3-1.4 back on August 2020 Serum creatinine down to 1.3 Avoid nephrotoxins --Hyperkalemia with potassium 5.7- resolved s/p Kayexalate sodium bicarbonate and calcium gluconate Monitor electrolytes Hypokalemia Mild Likely secondary to Kayexalate therapy and IV fluids We will supplement potassium IV fluids discontinued --Hypernatremia Improved. --COPD exacerbation Improving very well continue budesonide and arformoterol solutions via nebulizer Pulmonology consulted and note reviewed --Hypertension-poorly controlled Continue home medications but will increase amlodipine to 10 mg --Morbid obesity, due to excess calories Counseling on weight loss, diet and exercise if possible was emphasized --Physical debility with deconditioning, PT note reviewed Patient was recommended subacute rehab placement --UTI Urine cultures pending Blood cultures no growth to date --Anemia of normocytic type No overt bleed monitor H&H as needed --Status post trach tube, Tracheostomy care and continue oxygen via trach collar --GI and DVT prophylaxis: PPI, SCDs to bilateral lower extremities, Heparin subcu --Dispo: PT/OT ordered Daily clinical course: 10/25: Mental status significantly improved. Patient remains on 10 L oxygen with trach tube. Continue empiric steroid and nebulizer breathing treatment, antibiotics for UTI. diagnostic imaging manager consulted for placement, follow PT OT recommendation. Potassium 5.7 today -Ordered for Kayexalate sodium bicarbonate and calcium gluconate, repeat BMP tomorrow morning. 10/26: Patient remains on 10 L supplemental O2, potassium level improved, creatinine trending down. Change IV fluid to D5W at 48 mill per hour for mild hypernatremia. PT commended subacute rehab. Case management working placement. Pulmonary following. Wean off O2 as tolerated. 10/27 patient is alert and oriented, she appears mildly short of breath and coughing intermittently. She is on 8 L oxygen via tracheostomy Pulmonary note reviewed. Lab results reviewed. no lab tests were ordered for today. Patient denies any chest pain, fever or chills. She denies any nausea or abdominal pain 10/28 patient is alert and oriented and not in any distress. She offers no specific complaints and states she feels a lot better. Still she is on 8 L oxygen via trach collar. States shortness of breath and cough is better. Denie s fever or chills or chest pain. Lab results reviewed. For subacute rehab placement 10/29 patient is doing well, alert and oriented, no specific complaints, oxygen weaned down to 5 L via tracheostome. For subacute rehab placement Objective - Constitutional Vitals: Vital Signs - 12hr 10/29/20 10/29/20 10/29/20 04:00 08:30 09:29 Temperature 98.8 F 97.9 F Pulse Rate 61 65 Pulse Rate [ 67 Posterior Bilateral Throughout] Respiratory 16 20 Rate Respiratory 18 Rate [Posterior Bilateral Throughout] Blood Pressure 152/68 Blood Pressure 164/76 [Left] O2 Sat by Pulse 100 100 100 Oximetry O2 Sat by Pulse 100 Oximetry [ Assessment] 10/29/20 09:44 Temperature Pulse Rate 65 Pulse Rate [ Posterior Bilateral Throughout] Respiratory Rate Respiratory Rate [Posterior Bilateral Throughout] Blood Pressure 152/68 Blood Pressure [Left] O2 Sat by Pulse Oximetry O2 Sat by Pulse Oximetry [ Assessment] General appearance: Present: no acute distress, obese - EENT Eyes: PERRL, EOM intact ENT: hearing intact - Neck Neck: supple, normal ROM, other (Has a tracheostomy with trach collar), no masses or JVD - Respiratory Respiratory effort: normal Respiratory: bilateral: diminished, rhonchi - Cardiovascular Rhythm: regular Heart Sounds: Present: S1 & S2 Extremities: No edema - Gastrointestinal General gastrointestinal: Present: soft, non-tender Rectal Exam: deferred - Genitourinary Female genitourinary: deferred - Integumentary Integumentary: clear - Musculoskeletal Musculoskeletal: generalized weakness - Neurologic Neurologic: moves all extremities - Psychiatric Psychiatric: appropriate mood/affect - Labs CBC & Chem 7: 10/28/20 04:42 10/28/20 04:42 HEART Score - HEART Score Troponin: Troponin T 0.014 ng/mL (0.00-0.029) 10/24/20 09:00
--- NOTE | 2020-10-29 12:08 | Progress Note ---
Assessment and Plan 70 y/o female with acute on chronic respiratory failure, secondary to acute urinary tract infection leading to acute renal insufficiency. 10/29/20: Stable pulm status. No objection to discharge from a pulm standpoint to subacute rehab when bed is available. Will see as needed. All others per primary team. 10/28/20: Pulm status stable, can wean down TC more. Suggest speech consult for PMV if patient was truly on nasal cannula at home and not TC. Otherwise, should be ready for discharge soon. 10/27/20: pulm status is stable to improving. Not sure of liter flow baseline at home, but closer to it now. Will see as needed over the weekend. Discharge once other issues have resolved. Definitely stable to improving pulm lee. 10/26/20: Continue treatment for UTI. If oxygen requirement continues to increase or not able to wean, will check repeat CXR. Will continue to follow. 1. Treat UTI 2. Continue to wean FiO2 for sats >88% until patient back to baseline 3. Start Pulmicort in addition to brovana or scheduled duonebs, does not need both. 4. Will follow. Subjective Date of service: 10/29/20 Interval history: No acute events. Pulm status is stable. Objective Vital Signs - 12hr 10/29/20 10/29/20 10/29/20 04:00 08:30 09:29 Temperature 98.8 F 97.9 F Pulse Rate 61 65 Pulse Rate [ 67 Posterior Bilateral Throughout] Respiratory 16 20 Rate Respiratory 18 Rate [Posterior Bilateral Throughout] Blood Pressure 152/68 Blood Pressure 164/76 [Left] O2 Sat by Pulse 100 100 100 Oximetry O2 Sat by Pulse 100 Oximetry [ Assessment] 10/29/20 09:44 Temperature Pulse Rate 65 Pulse Rate [ Posterior Bilateral Throughout] Respiratory Rate Respiratory Rate [Posterior Bilateral Throughout] Blood Pressure 152/68 Blood Pressure [Left] O2 Sat by Pulse Oximetry O2 Sat by Pulse Oximetry [ Assessment] ENT: other (trached) Ascultation: Left: diminished breath sounds (base), Bilateral: clear CBC and BMP: 10/28/20 04:42 10/28/20 04:42 ABG, PT/INR, D-dimer: PT/INR, D-dimer PT 13.7 Sec. (12.2-14.9) 10/24/20 09:00 INR 1.06 (0.87-1.13) 10/24/20 09:00 Abnormal lab findings: Abnormal Labs 10/24/20 10/24/20 10/24/20 09:00 09:00 09:00 RBC 3.03 L Hgb 8.5 L Hct 26.5 L RDW 16.6 H Sodium Potassium Chloride 107.7 H Carbon Dioxide BUN 34 H Creatinine 2.4 H Glucose 134 H POC Glucose ALT < 5 L Albumin 3.8 L Urine WBC (Auto) Salicylates < 0.3 L Acetaminophen 10/24/20 10/24/20 10/24/20 09:00 17:32 Unknown RBC Hgb Hct RDW Sodium Potassium Chloride Carbon Dioxide BUN Creatinine Glucose POC Glucose 184 H ALT Albumin Urine WBC (Auto) 34.0 H Salicylates Acetaminophen 5.0 L 10/25/20 10/26/20 10/27/20 07:34 05:40 14:02 RBC Hgb Hct RDW Sodium 146 H 148 H Potassium 5.9 H D Chloride 112.8 H 109.4 H Carbon Dioxide 33 H 33 H BUN 34 H 31 H 22 H Creatinine 1.8 H 1.6 H 1.4 H Glucose 150 H 105 H 112 H POC Glucose ALT Albumin Urine WBC (Auto) Salicylates Acetaminophen 10/28/20 10/28/20 04:42 04:42 RBC 2.89 L Hgb 8.2 L Hct 25.1 L RDW 16.6 H Sodium Potassium 3.3 L Chloride Carbon Dioxide 33 H BUN 19 H Creatinine 1.3 H Glucose 120 H POC Glucose ALT Albumin Urine WBC (Auto) Salicylates Acetaminophen
[2020-10-29] MEDS: PRAVASTATIN 20 MG TAB PO SCH (21:51)
[2020-10-30] MEDS: BENZONATATE 100 MG CAP PO SCH ×3 (05:29→21:10)
[2020-10-30 05:30] LABS: Hematocrit 24.8 % (30.3-42.9); Hemoglobin 8.1 gm/dl (10.1-14.3); Mean Corpuscular HGB Conc 33 % (30-34); Mean Corpuscular Volume 86 fl (79-97); Platelet Count 179 K/mm3 (140-440); Red Blood Count 2.88 M/mm3 (3.65-5.03); Red Cell Distribution Width 16.7 % (13.2-15.2)
[2020-10-30 05:48] LABS: Calcium 8.7 mg/dL (8.4-10.2)
[2020-10-30] MEDS: ARFORMOTEROL 15 MCG/2 ML NEBU IH SCH ×2 (07:56→20:46)
[2020-10-30] MEDS: BUDESONIDE 0.5 MG/2 ML NEBU IH SCH ×2 (07:56→20:46)
--- NOTE | 2020-10-30 09:40 | Progress Note ---
Subjective Date of service: 10/30/20 Interval history: This is a 70-year-old female with hypertension, peripheral neuropathy, ? dementia, chronic respiratory failure s/p trach with home oxygen, s/p pituitary tumor resection, who presented to the emergency department for respiratory distress and generalized weakness. --Acute metabolic encephalopathy, resolved Likely due to severe hypoxia --Acute on chronic hypoxic and hypercapnic respiratory failure Likely due to COPD exacerbation Continue oxygen supplementation via trach Patient is on oxygen at 28% fio2 via trach collar (baseline) Chest x-ray reviewed she is on 2-4 L of oxygen at home Pulmonary consulted, Note reviewed Continue neb treatments with arformoterol and budesonide solutions Slow improvement Patient is medically stable for discharge Awaiting subacute rehab placement --LAURA, versus acute on chronic kidney disease Creatinine was 1.3-1.4 back on August 2020 Serum creatinine down to 1.3 (suspect this is baseline) Avoid nephrotoxins --Hyperkalemia with potassium 5.7- resolved s/p Kayexalate sodium bicarbonate and calcium gluconate Monitor electrolytes Hypokalemia Mild Likely secondary to Kayexalate therapy and IV fluids We will supplement potassium IV fluids discontinued --Hypernatremia Improved. --COPD exacerbation Improving very well continue budesonide and arformoterol solutions via nebulizer Pulmonology consulted and note reviewed --Hypertension-well controlled Continue present medications --Morbid obesity, due to excess calories Counseling on weight loss, diet and exercise if possible was emphasized --Physical debility with deconditioning, PT note reviewed Patient was recommended subacute rehab placement --UTI Urine cultures pending Blood cultures no growth to date We will discontinue antibiotics as she completed 5 days of ceftriaxone --Anemia of normocytic type No overt bleed monitor H&H as needed --Status post trach tube, Tracheostomy care and continue oxygen via trach collar --GI and DVT prophylaxis: PPI, SCDs to bilateral lower extremities, Heparin subcu --Dispo: PT/OT ordered Daily clinical course: 10/25: Mental status significantly improved. Patient remains on 10 L oxygen with trach tube. Continue empiric steroid and nebulizer breathing treatment, antibiotics for UTI. client program manager consulted for placement, follow PT OT recommendation. Potassium 5.7 today -Ordered for Kayexalate sodium bicarbonate and calcium gluconate, repeat BMP tomorrow morning. 10/26: Patient remains on 10 L supplemental O2, potassium level improved, creatinine trending down. Change IV fluid to D5W at 48 mill per hour for mild hypernatremia. PT commended subacute rehab. Case management working placement. Pulmonary following. Wean off O2 as tolerated. 10/27 patient is alert and oriented, she appears mildly short of breath and coughing intermittently. She is on 8 L oxygen via tracheostomy Pulmonary note reviewed. Lab results reviewed. no lab tests were ordered for today. Patient denies any chest pain, fever or chills. She denies any nausea or abdominal pain 10/28 patient is alert and oriented and not in any distress. She offers no specific complaints and states she feels a lot better. Still she is on 8 L oxygen via trach collar. States shortness of breath and cough is better. Denies fever or chills or chest pain. Lab results reviewed. For subacute rehab placement 10/29 patient is doing well, alert and oriented, no specific complaints, oxygen weaned down to 5 L via tracheostome. For subacute rehab placement 10/30 alert and oriented, no complaints, no acute events overnight, medically stable and waiting for subacute rehab placement Objective - Constitutional Vitals: Vital Signs - 12hr 10/30/20 05:51 Temperature 98.4 F Pulse Rate 64 Respiratory 16 Rate Blood Pressure 138/51 [Left] O2 Sat by Pulse 94 Oximetry General appearance: Present: no acute distress, obese - EENT Eyes: PERRL, EOM intact ENT: hearing intact - Neck Neck: supple, normal ROM - Respiratory Respiratory: bilateral: CTA, diminished - Cardiovascular Rhythm: regular Heart Sounds: Present: S1 & S2 Extremities: No edema - Gastrointestinal General gastrointestinal: Present: soft - Genitourinary Female genitourinary: deferred - Integumentary Integumentary: clear - Musculoskeletal Musculoskeletal: strength equal bilaterally - Neurologic Neurologic: no focal deficits - Psychiatric Psychiatric: appropriate mood/affect - Labs CBC & Chem 7: 10/30/20 04:48 10/30/20 04:48 Labs: Abnormal lab results 10/30/20 10/30/20 Range/Units 04:48 04:48 RBC 2.88 L (3.65-5.03) M/mm3 Hgb 8.1 L (10.1-14.3) gm/dl Hct 24.8 L (30.3-42.9) % RDW 16.7 H (13.2-15.2) % Carbon Dioxide 32 H (22-30) mmol/L BUN 18 H (7-17) mg/dL Creatinine 1.4 H (0.6-1.2) mg/dL Glucose 117 H (65-100) mg/dL HEART Score - HEART Score Troponin: Troponin T 0.014 ng/mL (0.00-0.029) 10/24/20 09:00
[2020-10-30] MEDS: GABAPENTIN 300 MG CAP PO SCH ×2 (11:30→21:11)
[2020-10-30] MEDS: ASPIRIN EC 81 MG TAB PO SCH (11:30)
[2020-10-30] MEDS: amLODIPine 10 MG TAB PO SCH (11:40)
[2020-10-30] MEDS: METOPROLOL TARTRATE 50 MG TAB PO SCH ×2 (11:40→21:10)
--- NOTE | 2020-10-30 12:18 | Progress Note ---
Assessment and Plan 70 y/o female with acute on chronic respiratory failure, secondary to acute urinary tract infection leading to acute renal insufficiency. 10/30/20: no new recs for today. Will see PRN 10/29/20: Stable pulm status. No objection to discharge from a pulm standpoint to subacute rehab when bed is available. Will see as needed. All others per primary team. 10/28/20: Pulm status stable, can wean down TC more. Suggest speech consult for PMV if patient was truly on nasal cannula at home and not TC. Otherwise, should be ready for discharge soon. 10/27/20: pulm status is stable to improving. Not sure of liter flow baseline at home, but closer to it now. Will see as needed over the weekend. Discharge once other issues have resolved. Definitely stable to improving pulm lee. 10/26/20: Continue treatment for UTI. If oxygen requirement continues to increase or not able to wean, will check repeat CXR. Will continue to follow. 1. Treat UTI 2. Continue to wean FiO2 for sats >88% until patient back to baseline 3. Start Pulmicort in addition to brovana or scheduled duonebs, does not need both. 4. Will follow. Subjective Date of service: 10/30/20 Interval history: No acute events. Awaiting placement Objective Vital Signs - 12hr 10/30/20 10/30/20 05:51 07:56 Temperature 98.4 F Pulse Rate 64 Pulse Rate [ 80 Anterior Bilateral Throughout] Respiratory 16 Rate Respiratory 20 Rate [Anterior Bilateral Throughout] Blood Pressure 138/51 [Left] O2 Sat by Pulse 94 100 Oximetry O2 Sat by Pulse 100 Oximetry [ Assessment] ENT: other (trached) Ascultation: Left: diminished breath sounds (base), Bilateral: clear CBC and BMP: 10/30/20 04:48 10/30/20 04:48 ABG, PT/INR, D-dimer: PT/INR, D-dimer PT 13.7 Sec. (12.2-14.9) 10/24/20 09:00 INR 1.06 (0.87-1.13) 10/24/20 09:00 Abnormal lab findings: Abnormal Labs 10/24/20 10/24/20 10/24/20 09:00 09:00 09:00 RBC 3.03 L Hgb 8.5 L Hct 26.5 L RDW 16.6 H Sodium Potassium Chloride 107.7 H Carbon Dioxide BUN 34 H Creatinine 2.4 H Glucose 134 H POC Glucose ALT < 5 L Albumin 3.8 L Urine WBC (Auto) Salicylates < 0.3 L Acetaminophen 10/24/20 10/24/20 10/24/20 09:00 17:32 Unknown RBC Hgb Hct RDW Sodium Potassium Chloride Carbon Dioxide BUN Creatinine Glucose POC Glucose 184 H ALT Albumin Urine WBC (Auto) 34.0 H Salicylates Acetaminophen 5.0 L 10/25/20 10/26/20 10/27/20 07:34 05:40 14:02 RBC Hgb Hct RDW Sodium 146 H 148 H Potassium 5.9 H D Chloride 112.8 H 109.4 H Carbon Dioxide 33 H 33 H BUN 34 H 31 H 22 H Creatinine 1.8 H 1.6 H 1.4 H Glucose 150 H 105 H 112 H POC Glucose ALT Albumin Urine WBC (Auto) Salicylates Acetaminophen 10/28/20 10/28/20 10/30/20 04:42 04:42 04:48 RBC 2.89 L 2.88 L Hgb 8.2 L 8.1 L Hct 25.1 L 24.8 L RDW 16.6 H 16.7 H Sodium Potassium 3.3 L Chloride Carbon Dioxide 33 H BUN 19 H Creatinine 1.3 H Glucose 120 H POC Glucose ALT Albumin Urine WBC (Auto) Salicylates Acetaminophen 10/30/20 04:48 RBC Hgb Hct RDW Sodium Potassium Chloride Carbon Dioxide 32 H BUN 18 H Creatinine 1.4 H Glucose 117 H POC Glucose ALT Albumin Urine WBC (Auto) Salicylates Acetaminophen
[2020-10-30] MEDS: PRAVASTATIN 20 MG TAB PO SCH (21:10)
[2020-10-31] MEDS: BENZONATATE 100 MG CAP PO SCH ×3 (05:18→21:15)
[2020-10-31] MEDS ORDERED: ALBUTEROL 2.5 MG/3 ML NEBU IH PRN (05:49)
[2020-10-31] MEDS ORDERED: FUROSEMIDE 40 MG/4 ML INJ IV ONE (05:49)
[2020-10-31] MEDS: ARFORMOTEROL 15 MCG/2 ML NEBU IH SCH ×2 (08:21→20:35)
[2020-10-31] MEDS: BUDESONIDE 0.5 MG/2 ML NEBU IH SCH ×2 (08:21→20:35)
[2020-10-31] MEDS: ASPIRIN EC 81 MG TAB PO SCH (08:59)
[2020-10-31] MEDS: amLODIPine 10 MG TAB PO SCH (08:59)
[2020-10-31] MEDS: GABAPENTIN 300 MG CAP PO SCH ×2 (08:59→21:15)
[2020-10-31] MEDS: METOPROLOL TARTRATE 50 MG TAB PO SCH ×2 (08:59→21:15)
[2020-10-31] MEDS: guaiFENesin ER 600 MG TAB PO SCH ×2 (08:59→21:15)
--- NOTE | 2020-10-31 16:53 | Progress Note ---
Assessment and Plan This is a 70-year-old female with hypertension, peripheral neuropathy, ? dementia, chronic respiratory failure s/p trach with home oxygen, s/p pituitary tumor resection, who presented to the emergency department for respiratory distress and generalized weakness. --Acute metabolic encephalopathy, resolved Likely due to severe hypoxia --Acute on chronic hypoxic and hypercapnic respiratory failure Likely due to COPD exacerbation Continue oxygen supplementation via trach Patient is on oxygen at 28% fio2 via trach collar (baseline) Chest x-ray reviewed she is on 2-4 L of oxygen at home Pulmonary consulted, Note reviewed Continue neb treatments with arformoterol and budesonide solutions Slow improvement Patient is medically stable for discharge Awaiting subacute rehab placement --LAURA, versus acute on chronic kidney disease Creatinine was 1.3-1.4 back on August 2020 Serum creatinine down to 1.3 (suspect this is baseline) Avoid nephrotoxins --Hyperkalemia with potassium 5.7- resolved s/p Kayexalate sodium bicarbonate and calcium gluconate Monitor electrolytes Hypokalemia Mild Likely secondary to Kayexalate therapy and IV fluids We will supplement potassium IV fluids discontinued --Hypernatremia Improved. --COPD exacerbation Improving very well continue budesonide and arformoterol solutions via nebulizer Pulmonology consulted and note reviewed --Hypertension-well controlled Continue present medications --Morbid obesity, due to excess calories Counseling on weight loss, diet and exercise if possible was emphasized --Physical debility with deconditioning, PT note reviewed Patient was recommended subacute rehab placement --UTI Urine cultures pending Blood cultures no growth to date We will discontinue antibiotics as she completed 5 days of ceftriaxone --Anemia of normocytic type No overt bleed monitor H&H as needed --Status post trach tube, Tracheostomy care and continue oxygen via trach collar --GI and DVT prophylaxis: PPI, SCDs to bilateral lower extremities, Heparin subcu --Dispo: PT/OT ordered Daily clinical course: 10/25: Mental status significantly improved. Patient remains on 10 L oxygen with trach tube. Continue empiric steroid and nebulizer breathing treatment, antibiotics for UTI. food and beverage assistant manager consulted for placement, follow PT OT recommendation. Potassium 5.7 today -Ordered for Kayexalate sodium bicarbonate and calcium gluconate, repeat BMP tomorrow morning. 10/26: Patient remains on 10 L supplemental O2, potassium level improved, creatinine trending down. Change IV fluid to D5W at 48 mill per hour for mild hypernatremia. PT commended subacute rehab. Case management working placement. Pulmonary following. Wean off O2 as tolerated. 10/27 patient is alert and oriented, she appears mildly short of breath and coughing intermittently. She is on 8 L oxygen via tracheostomy Pulmonary note reviewed. Lab results reviewed. no lab tests were ordered for today. Patient denies any chest pain, fever or chills. She denies any nausea or abdominal pain 10/28 patient is alert and oriented and not in any distress. She offers no specific complaints and states she feels a lot better. Still she is on 8 L oxygen via trach collar. States shortness of breath and cough is better. Denies fever or chills or chest pain. Lab results reviewed. For subacute rehab placement 10/29 patient is doing well, alert and oriented, no specific complaints, oxygen weaned down to 5 L via tracheostome. For subacute rehab placement 10/30 alert and oriented, no complaints, no acute events overnight, medically stable and waiting for subacute rehab placement 10/31: Patient clinically stable, pending subacute rehab placement. Continue to follow clinically. Subjective Date of service: 10/31/20 Interval history: Patient seen and examined. Medical records and medication list reviewed. No acute event overnight noted by the RN. Patient remains on 5 L supplemental O2 with trach tube. Patient is tolerating diet. Mental status stable. Patient requesting placement as she is unable to do ADL at home PT recommended subacute rehab Discussed plan of care at bedside with RN and shoe caser. Objective - Exam Narrative Exam: GENERAL: Morbidly obese -[place] female lying on bed appeared to be in no distress. HEENT: Normocephalic. Atraumatic. No conjunctival congestion or icterus. Patient has dry mucous membranes. NECK: Supple. Trachea midline. Trach in place CHEST/LUNGS: breath sounds auscultated bilaterally HEART/CARDIOVASCULAR: Regular in rate and rhythm. S1 and S2 positive. ABDOMEN: Abdomen is soft, nontender. Patient has normal bowel sounds. SKIN: There is no rash. Warm and dry. NEURO: No focal deficits follow commands MUSCULOSKELETAL: No joint effusion or tenderness. EXTRIMITY: No edema, no cyanosis or clubbing. PSYCH: Cooperative, alert awake and oriented x3 - Constitutional Vitals: Vital Signs - 12hr 10/31/20 10/31/20 10/31/20 08:21 08:45 11:12 Pulse Rate [ 75 Anterior Bilateral Throughout] Pulse Rate [ 78 Posterior Bilateral Throughout] Respiratory 22 Rate [Anterior Bilateral Throughout] Respiratory 20 Rate [Posterior Bilateral Throughout] O2 Sat by Pulse 97 Oximetry O2 Sat by Pulse 99 Oximetry [ Assessment] - Labs CBC & Chem 7: 10/30/20 04:48 10/30/20 04:48 HEART Score - HEART Score Troponin: Troponin T 0.014 ng/mL (0.00-0.029) 10/24/20 09:00
[2020-10-31] MEDS: PRAVASTATIN 20 MG TAB PO SCH (21:15)
[2020-11-01] MEDS: BENZONATATE 100 MG CAP PO SCH ×2 (05:17→14:51)
--- NOTE | 2020-11-01 08:07 | Progress Note ---
Assessment and Plan 70 y/o female with acute on chronic respiratory failure, secondary to acute urinary tract infection leading to acute renal insufficiency. 11/01/20: Stable pulm status. NO objection to discharge when bed available. Will see PRN 10/30/20: no new recs for today. Will see PRN 10/29/20: Stable pulm status. No objection to discharge from a pulm standpoint to subacute rehab when bed is available. Will see as needed. All others per pr imary team. 10/28/20: Pulm status stable, can wean down TC more. Suggest speech consult for PMV if patient was truly on nasal cannula at home and not TC. Otherwise, should be ready for discharge soon. 10/27/20: pulm status is stable to improving. Not sure of liter flow baseline at home, but closer to it now. Will see as needed over the weekend. Discharge once other issues have resolved. Definitely stable to improving pulm lee. 10/26/20: Continue treatment for UTI. If oxygen requirement continues to increase or not able to wean, will check repeat CXR. Will continue to follow. 1. Treat UTI 2. Continue to wean FiO2 for sats >88% until patient back to baseline 3. Start Pulmicort in addition to brovana or scheduled duonebs, does not need both. 4. Will follow. Subjective Date of service: 11/01/20 Interval history: No acute events. Stable on 5 liter trach collar. Awaiting placement Objective Vital Signs - 12hr 10/31/20 10/31/20 11/01/20 21:18 21:33 02:37 Temperature 98.0 F Pulse Rate 72 Pulse Rate [ 82 Anterior Bilateral Throughout] Pulse Rate [ 82 Posterior Bilateral Throughout] Respiratory 16 Rate Respiratory 20 Rate [Anterior Bilateral Throughout] Respiratory 20 Rate [Posterior Bilateral Throughout] Blood Pressure 143/68 O2 Sat by Pulse 97 98 99 Oximetry O2 Sat by Pulse 100 99 Oximetry [ Assessment] 11/01/20 05:36 Temperature 98.2 F Pulse Rate 65 Pulse Rate [ Anterior Bilateral Throughout] Pulse Rate [ Posterior Bilateral Throughout] Respiratory 18 Rate Respiratory Rate [Anterior Bilateral Throughout] Respiratory Rate [Posterior Bilateral Throughout] Blood Pressure 143/63 O2 Sat by Pulse 94 Oximetry O2 Sat by Pulse Oximetry [ Assessment] ENT: other (trached) Ascultation: Left: diminished breath sounds (base), Bilateral: clear CBC and BMP: 10/30/20 04:48 10/30/20 04:48 ABG, PT/INR, D-dimer: PT/INR, D-dimer PT 13.7 Sec. (12.2-14.9) 10/24/20 09:00 INR 1.06 (0.87-1.13) 10/24/20 09:00 Abnormal lab findings: Abnormal Labs 10/24/20 10/24/20 10/24/20 09:00 09:00 09:00 RBC 3.03 L Hgb 8.5 L Hct 26.5 L RDW 16.6 H Sodium Potassium Chloride 107.7 H Carbon Dioxide BUN 34 H Creatinine 2.4 H Glucose 134 H POC Glucose ALT < 5 L Albumin 3.8 L Urine WBC (Auto) Salicylates < 0.3 L Acetaminophen 10/24/20 10/24/20 10/24/20 09:00 17:32 Unknown RBC Hgb Hct RDW Sodium Potassium Chloride Carbon Dioxide BUN Creatinine Glucose POC Glucose 184 H ALT Albumin Urine WBC (Auto) 34.0 H Salicylates Acetaminophen 5.0 L 10/25/20 10/26/20 10/27/20 07:34 05:40 14:02 RBC Hgb Hct RDW Sodium 146 H 148 H Potassium 5.9 H D Chloride 112.8 H 109.4 H Carbon Dioxide 33 H 33 H BUN 34 H 31 H 22 H Creatinine 1.8 H 1.6 H 1.4 H Glucose 150 H 105 H 112 H POC Glucose ALT Albumin Urine WBC (Auto) Salicylates Acetaminophen 10/28/20 10/28/20 10/30/20 04:42 04:42 04:48 RBC 2.89 L 2.88 L Hgb 8.2 L 8.1 L Hct 25.1 L 24.8 L RDW 16.6 H 16.7 H Sodium Potassium 3.3 L Chloride Carbon Dioxide 33 H BUN 19 H Creatinine 1.3 H Glucose 120 H POC Glucose ALT Albumin Urine WBC (Auto) Salicylates Acetaminophen 10/30/20 04:48 RBC Hgb Hct RDW Sodium Potassium Chloride Carbon Dioxide 32 H BUN 18 H Creatinine 1.4 H Glucose 117 H POC Glucose ALT Albumin Urine WBC (Auto) Salicylates Acetaminophen
[2020-11-01] MEDS: ARFORMOTEROL 15 MCG/2 ML NEBU IH SCH ×2 (09:14→20:54)
[2020-11-01] MEDS: BUDESONIDE 0.5 MG/2 ML NEBU IH SCH ×2 (09:14→20:55)
[2020-11-01] MEDS: guaiFENesin ER 600 MG TAB PO SCH (10:35)
[2020-11-01] MEDS: ASPIRIN EC 81 MG TAB PO SCH (10:35)
[2020-11-01] MEDS: amLODIPine 10 MG TAB PO SCH (10:35)
[2020-11-01] MEDS: GABAPENTIN 300 MG CAP PO SCH (10:36)
[2020-11-01] MEDS: METOPROLOL TARTRATE 50 MG TAB PO SCH (10:36)
[2020-11-01 13:34] VITALS: BP 139/61
--- NOTE | 2020-11-01 14:24 | Progress Note ---
Assessment and Plan This is a 70-year-old female with hypertension, peripheral neuropathy, ? dementia, chronic respiratory failure s/p trach with home oxygen, s/p pituitary tumor resection, who presented to the emergency department for respiratory distress and generalized weakness. --Acute metabolic encephalopathy, resolved Likely due to severe hypoxia --Acute on chronic hypoxic and hypercapnic respiratory failure Likely due to COPD exacerbation Continue oxygen supplementation via trach Patient is on oxygen at 28% fio2 via trach collar (baseline) Chest x-ray reviewed she is on 2-4 L of oxygen at home Pulmonary consulted, Note reviewed Continue neb treatments with arformoterol and budesonide solutions Slow improvement Patient is medically stable for discharge Awaiting subacute rehab placement --LAURA, versus acute on chronic kidney disease Creatinine was 1.3-1.4 back on August 2020 Serum creatinine down to 1.3 (suspect this is baseline) Avoid nephrotoxins --Hyperkalemia with potassium 5.7- resolved s/p Kayexalate sodium bicarbonate and calcium gluconate Monitor electrolytes Hypokalemia Mild Likely secondary to Kayexalate therapy and IV fluids We will supplement potassium IV fluids discontinued --Hypernatremia Improved. --COPD exacerbation Improving very well continue budesonide and arformoterol solutions via nebulizer Pulmonology consulted and note reviewed --Hypertension-well controlled Continue present medications --Morbid obesity, due to excess calories Counseling on weight loss, diet and exercise if possible was emphasized --Physical debility with deconditioning, PT note reviewed Patient was recommended subacute rehab placement --UTI Urine cultures pending Blood cultures no growth to date We will discontinue antibiotics as she completed 5 days of ceftriaxone --Anemia of normocytic type No overt bleed monitor H&H as needed --Status post trach tube, Tracheostomy care and continue oxygen via trach collar --GI and DVT prophylaxis: PPI, SCDs to bilateral lower extremities, Heparin subcu --Dispo: PT/OT ordered Daily clinical course: 10/25: Mental status significantly improved. Patient remains on 10 L oxygen with trach tube. Continue empiric steroid and nebulizer breathing treatment, antibiotics for UTI. manager distribution center consulted for placement, follow PT OT recommendation. Potassium 5.7 today -Ordered for Kayexalate sodium bicarbonate and calcium gluconate, repeat BMP tomorrow morning. 10/26: Patient remains on 10 L supplemental O2, potassium level improved, creatinine trending down. Change IV fluid to D5W at 48 mill per hour for mild hypernatremia. PT commended subacute rehab. Case management working placement. Pulmonary following. Wean off O2 as tolerated. 10/27 patient is alert and oriented, she appears mildly short of breath and coughing intermittently. She is on 8 L oxygen via tracheostomy Pulmonary note reviewed. Lab results reviewed. no lab tests were ordered for today. Patient denies any chest pain, fever or chills. She denies any nausea or abdominal pain 10/28 patient is alert and oriented and not in any distress. She offers no specific complaints and states she feels a lot better. Still she is on 8 L oxygen via trach collar. States shortness of breath and cough is better. Denies fever or chills or chest pain. Lab results reviewed. For subacute rehab placement 10/29 patient is doing well, alert and oriented, no specific complaints, oxygen weaned down to 5 L via tracheostome. For subacute rehab placement 10/30 alert and oriented, no complaints, no acute events overnight, medically stable and waiting for subacute rehab placement 10/31: Patient clinically stable, pending subacute rehab placement. Continue to follow clinically. 11/01: pending placement Subjective Date of service: 11/01/20 Objective - Constitutional Vitals: Vital Signs - 12hr 11/01/20 11/01/20 11/01/20 02:37 05:36 09:14 Temperature 98.2 F Pulse Rate 65 Pulse Rate [ 68 Anterior Bilateral Throughout] Pulse Rate [ 68 Posterior Bilateral Throughout] Respiratory 18 Rate Respiratory 18 Rate [Anterior Bilateral Throughout] Respiratory 19 Rate [Posterior Bilateral Throughout] Blood Pressure 143/63 O2 Sat by Pulse 99 94 Oximetry O2 Sat by Pulse 99 Oximetry [ Assessment] 11/01/20 11/01/20 11/01/20 10:35 10:36 11:58 Temperature 98.1 F Pulse Rate 65 65 70 Pulse Rate [ Anterior Bilateral Throughout] Pulse Rate [ Posterior Bilateral Throughout] Respiratory 18 Rate Respiratory Rate [Anterior Bilateral Throughout] Respiratory Rate [Posterior Bilateral Throughout] Blood Pressure 143/63 143/63 139/61 O2 Sat by Pulse 94 Oximetry O2 Sat by Pulse Oximetry [ Assessment] - Labs CBC & Chem 7: 10/30/20 04:48 10/30/20 04:48 HEART Score - HEART Score Troponin: Troponin T 0.014 ng/mL (0.00-0.029) 10/24/20 09:00
--- NOTE | 2020-11-01 15:50 | Discharge Summary ---
Providers - Providers Date of Admission: 10/25/20 09:28 Date of discharge: 11/01/20 Attending physician: TERRELL MANZO 10/24/20 08:34 Physical Therapy Evaluation and Treat [CONS] Stat Comment: Reason For Exam: cant waLK Mode of Transport?: Cane Weight bearing status?: Partial wt bearing Assistive devices?: Yes If so list: Cane 10/24/20 17:53 Consult to Physician [CONS] Routine Comment: Consulting Provider: RUBEN RIOS Physician Instructions: Reason For Exam: acute respiratory failure 10/25/20 09:45 Occupational Therapy Evaluate and Treat [CONS] Routine Comment: Reason For Exam: ADLs 10/26/20 09:09 Consult to Case Management [CONS] Routine Services Needed at Discharge: Other Notified:: cm Additional Physician Instructions: placement 10/30/20 14:47 Consult to Wound/ET Nurse [CONS] Routine Reason For Exam: wound eval Primary care physician: GRADUATE RESEARCH ASSISTANT Hospitalization Condition: Fair Pertinent studies: Chest x-ray: No acute finding and no interval change since 08/27/2020 Hospital course: This is a 70-year-old female with hypertension, peripheral neuropathy, ? dem entia, chronic respiratory failure s/p trach with home oxygen, s/p pituitary tumor resection, who presented to the emergency department for respiratory distress and generalized weakness. she was admitted for acute on chronic respiratory failure, acute metabolic encephalopathy and possible placement. Daily clinical course: 10/25: Mental status significantly improved. Patient remains on 10 L oxygen with trach tube. Continue empiric steroid and nebulizer breathing treatment, antibiotics for UTI. commercial intelligence manager consulted for placement, follow PT OT recommendation. Potassium 5.7 today -Ordered for Kayexalate sodium bicarbonate and calcium gluconate, repeat BMP tomorrow morning. 10/26: Patient remains on 10 L supplemental O2, potassium level improved, creatinine trending down. Change IV fluid to D5W at 48 mill per hour for mild hypernatremia. PT commended subacute rehab. Case management working placement. Pulmonary following. Wean off O2 as tolerated. 10/27 patient is alert and oriented, she appears mildly short of breath and coughing intermittently. She is on 8 L oxygen via tracheostomy Pulmonary note reviewed. Lab results reviewed. no lab tests were ordered for today. Patient denies any chest pain, fever or chills. She denies any nausea or abdominal pain 10/28 patient is alert and oriented and not in any distress. She offers no specific complaints and states she feels a lot better. Still she is on 8 L oxygen via trach collar. States shortness of breath and cough is better. Denies fever or chills or chest pain. Lab results reviewed. For subacute rehab placement 10/29 patient is doing well, alert and oriented, no specific complaints, oxygen weaned down to 5 L via tracheostome. For subacute rehab placement 10/30 alert and oriented, no complaints, no acute events overnight, medically stable and waiting for subacute rehab placement 10/31: Patient clinically stable, pending subacute rehab placement. Continue to follow clinically. 11/01: Placement has been arranged to the [facility]. Patient clinically stable. Patient is planned for discharge today. Discharge plan and management discussed with patient verbalized understanding. A/P --Acute metabolic encephalopathy, resolved Likely due to severe hypoxia --Acute on chronic hypoxic and hypercapnic respiratory failure Likely due to COPD exacerbation Continue oxygen supplementation via trach Patient is on oxygen at 28% fio2 via trach collar (baseline) Chest x-ray reviewed she is on 2-4 L of oxygen at home Pulmonary consulted, Continue neb treatments with arformoterol and budesonide solutions Patient is medically stable for discharge --LAURA, versus acute on chronic kidney disease Creatinine was 1.3-1.4 back on August 2020 Serum creatinine down to 1.3 (suspect this is baseline) Avoid nephrotoxins --Hyperkalemia with potassium 5.7- resolved s/p Kayexalate sodium bicarbonate and calcium gluconate Monitor electrolytes Hypokalemia, repleted Mild, Likely secondary to Kayexalate therapy and IV fluids --Hypernatremia Improved. --COPD exacerbation Improved very well continue budesonide and arformoterol solutions via nebulizer Pulmonology consulted and note reviewed --Hypertension-well controlled Continue present medications --Morbid obesity, due to excess calories Counseling on weight loss, diet and exercise if possible was emphasized --Physical debility with deconditioning, PT note reviewed Patient was recommended subacute rehab placement --UTI Urine cultures ordered Blood cultures no growth to date We will discontinue antibiotics as she completed 5 days of ceftriaxone --Anemia of normocytic type No overt bleed, monitor H&H as needed --Status post trach tube, Tracheostomy care and continue oxygen via trach collar --GI and DVT prophylaxis: PPI, SCDs to bilateral lower extremities, Heparin subcu --Dispo: KADIE Disposition: [id number]/[facility] Final Discharge Diagnosis (Prints w/discharge instructions): --Acute metabolic encephalopathy. --Acute on chronic hypoxic and hypercapnic respiratory failure. --CKD, creatinine at baseline. --Hyperkalemia, resolved. --Hypokalemia resolved. --Hyponatremia, improved. --COPD exacerbation. --Hypertension, well controlled. --Morbid obesity, due to excess calories. --Physical debility with deconditioning. --UTI treated with antibiotics. --Normocytic anemia likely due to chronic disease. --Status post trach tube, chronic Time spent for discharge: 34 minutes Core Measure Documentation - Palliative Care Palliative Care/ Comfort Measures: Not Applicable - Core Measures Any of the following diagnoses?: none Exam - Physical Exam Narrative exam: GENERAL: Morbidly obese -[place] female lying on bed appeared to be in no distress. HEENT: Normocephalic. Atraumatic. No conjunctival congestion or icterus. Patient has dry mucous membranes. NECK: Supple. Trachea midline. Trach in place CHEST/LUNGS: breath sounds auscultated bilaterally HEART/CARDIOVASCULAR: Regular in rate and rhythm. S1 and S2 positive. ABDOMEN: Abdomen is soft, nontender. Patient has normal bowel sounds. SKIN: There is no rash. Warm and dry. NEURO: No focal deficits follow commands MUSCULOSKELETAL: No joint effusion or tenderness. EXTRIMITY: No edema, no cyanosis or clubbing. PSYCH: Cooperative, alert awake and oriented x3 - Constitutional Vitals: Temp Pulse Resp BP Pulse Ox 98.1 F 70 18 139/61 94 11/01/20 11:58 11/01/20 11:58 11/01/20 11:58 11/01/20 11:58 11/01/20 11:58 Plan Activity: fall precautions Diet: low fat, low salt Special Instructions: record daily BP diary Additional Instructions: Repeat BMP in 1 week. Further plan and management will be directed by MD at rehab facility following discharge. Follow up with: PRIMARY MD JAZZ [Primary Care Provider] - 3-5 Days
== END 2020-11-01 20:30 | DRG 70 ==
LOC: ED 07:57 → 3A 10:25 → OBSVTOIN 10-25 09:28 → 3A 10-25 15:16
PROVIDERS: ADMIT Internal Medicine; ATTEND Internal Medicine
DX: G93.41 Metabolic encephalopathy (principal); N17.0 Acute kidney failure with tubular necrosis; J96.21 Acute and chronic respiratory failure with hypoxia; J96.22 Acute and chronic respiratory failure with hypercapnia; N39.0 Urinary tract infection, site not specified; Z68.41 Body mass index [BMI] 40.0-44.9, adult; J44.1 Chronic obstructive pulmonary disease with (acute) exacerbation; Z20.822 Contact with and (suspected) exposure to COVID-19; R26.2 Difficulty in walking, not elsewhere classified; E87.5 Hyperkalemia; D63.8 Anemia in other chronic diseases classified elsewhere; E87.6 Hypokalemia; F03.90 Unspecified dementia, unspecified severity, without behavioral disturbance, psychotic disturbance, mood disturbance, and anxiety; I10 Essential (primary) hypertension; E11.42 Type 2 diabetes mellitus with diabetic polyneuropathy; E66.01 Morbid (severe) obesity due to excess calories; D64.9 Anemia, unspecified; Z43.0 Encounter for attention to tracheostomy; Z79.82 Long term (current) use of aspirin; Z79.899 Other long term (current) drug therapy; Z87.891 Personal history of nicotine dependence; Z88.8 Allergy status to other drugs, medicaments and biological substances
CPT/HCPCS: 36415; 71045; 80048; 80053; 80320; 81001; 82140; 82550; 82962; 83735; 84132; 84443; 84484; 85025; 85027; 85610; 87040; 87086; 93005; 94640; 96365; 96375; G0378; A9270-GY; G0480; J0610; J0696; J1940; J7030; J7070; J7120; U0003

== ENCOUNTER 2020-11-05 02:47 | Emergency (ER) | payer MEDICARE ==
--- NOTE | 2020-11-05 02:58 | Emergency Department Report ---
ED CPR HPI - General Chief Complaint: Cardiac Arrest/CPR Stated Complaint: CARDIAC ARREST Time Seen by Provider: 11/05/20 02:56 Source: EMS (Verbal report received from emergency medical services. EMS documentation not available at time of chart dictation ), RN notes reviewed Mode of arrival: Stretcher Limitations: Altered Mental Status, Physical Limitation - History of Present Illness Initial Comments: The patient was evaluated in the emergency department for symptoms described in the history of present illness. He/she was evaluated in the context of the global COVID-19 pandemic, which necessitated consideration that the patient might be at risk for infection with the virus that causes COVID-19. Institutional protocols and algorithms that pertain to the evaluation of patients at risk for COVID-19 are in a state of rapid change based on information released by regulatory bodies including the CDC and federal and state organizations. These policies and algorithms were followed during the patient's care in the emergency department. Please note that these policies, procedures and recommendations changed on a rapid basis. This is a 70-year-old female. She is brought to the hospital by emergency medical services as an out of hospital cardiac arrest. Patient arrives receiving [id number] ventilation, through an endotracheal tube that is placed through her tracheostomy site, and arrives with a GCS of 3. History obtained from EMS. EMS reports that they received a call for a respiratory distress, at a personal care/usp. Apparently, prior to their arrival, the patient arrested and lost pulses. It was approximately 10 minutes from the time of first 911 call, to EMS arrival, and EMS reports that bystanders/staff did not perform CPR. EMS reports that the patient had a tracheostomyin place , but it was difficult to bag, so they replaced the patient's tracheostomy tube with an endotracheal tube. Patient received high-quality CPR, and a left lower extremity IO. EMS reports that patient temporarily gained pulses back for a few minutes, but then arrested again. At no point time did the patient have a shockable rhythm. When the patient arrived to this emergency room, EMS verbally estimated that she had been pulseless again for about 10 minutes. Upon arrival to this emergency room, pupils are dilated, do not react to light, and she has signs of conjunctival injection. Standard ACLS interventions are continued, along with high-quality CPR. Patient remains asystolic. Cardiac bedside ultrasound shows no coordinated ventricular activity. Doppler interrogation of arterial anatomy shows no pulses. Resuscitation efforts are thus terminated secondary to medical futility and prolonged downtime. Unfortunately, at this time, patient not accompanied physically by friends or family. Complaint: found unresponsive, stopped breathing -: minute(s) Place: NH/SNF Bystander CPR Performed: No Initial Findings in the Field: no respirations, no pulse ROSC in the Field: No Associated Injuries: No Treatments Prior to Arrival: intubation, chest compressions, epinephrine mgs # - Related Data Home Medications Medication Instructions Recorded Confirmed Last Taken Aspirin 81 mg PO DAILY 03/18/20 10/24/20 10/23/20 Previous Rx's Medication Instructions Recorded Last Taken Type Benzonatate [Tessalon Perles] 100 mg PO Q8HR #21 capsule 03/19/20 10/24/20 14:47 Rx Arformoterol Nebu [Brovana Nebu] 15 mcg IH Q12HRT 30 Days 08/26/20 10/23/20 Rx amLODIPine 5 mg PO QDAY #30 tablet 08/29/20 10/23/20 Rx ALBUTEROL NEB's [Proventil 0.083% 2.5 mg IH Q4HRT PRN nebu 11/01/20 Unknown Rx NEBS] Aspirin EC [Halfprin EC] 81 mg PO QDAY tablet 11/01/20 Unknown Rx Budesonide [Pulmicort Respules] 0.5 mg IH Q12HRT nebu 11/01/20 Unknown Rx Gabapentin 300 mg PO BID capsule 11/01/20 Unknown Rx Metoprolol [Lopressor TAB] 50 mg PO BID tablet 11/01/20 Unknown Rx Pravastatin [Pravachol] 10 mg PO QHS tablet 11/01/20 Unknown Rx guaiFENesin ER [Mucinex ER] 600 mg PO BID tablet 11/01/20 Unknown Rx Allergies Allergy/AdvReac Type Severity Reaction Status Date / Time celecoxib [From Celebrex] Allergy Unknown Verified 10/24/20 08:38 ED Review of Systems ROS: Stated complaint: CARDIAC ARREST Other details as noted in HPI Comment: Unobtainable due to pts medical conditions ED Past Medical Hx - Past Medical History Hx Hypertension: Yes Hx Congestive Heart Failure: Yes Hx Diabetes: Yes Hx Dementia: Yes Additional medical history: O2 AT HOME - Surgical History Additional Surgical History: KNEE REPLACEMENTS, pituitary tumor resection - Social History Smoking Status: Never Smoker - Medications Home Medications: Home Medications Medication Instructions Recorded Confirmed Last Taken Type Aspirin 81 mg PO DAILY 03/18/20 10/24/20 10/23/20 History Benzonatate [Tessalon Perles] 100 mg PO Q8HR #21 capsule 03/19/20 10/24/20 14:47 Rx Arformoterol Nebu [Brovana Nebu] 15 mcg IH Q12HRT 30 Days 08/26/20 10/24/20 10/23/20 Rx amLODIPine 5 mg PO QDAY #30 tablet 08/29/20 10/24/20 10/23/20 Rx ALBUTEROL NEB's [Proventil 0.083% 2.5 mg IH Q4HRT PRN nebu 11/01/20 Unknown Rx NEBS] Aspirin EC [Halfprin EC] 81 mg PO QDAY tablet 11/01/20 Unknown Rx Budesonide [Pulmicort Respules] 0.5 mg IH Q12HRT nebu 11/01/20 Unknown Rx Gabapentin 300 mg PO BID capsule 11/01/20 Unknown Rx Metoprolol [Lopressor TAB] 50 mg PO BID tablet 11/01/20 Unknown Rx Pravastatin [Pravachol] 10 mg PO QHS tablet 11/01/20 Unknown Rx guaiFENesin ER [Mucinex ER] 600 mg PO BID tablet 11/01/20 Unknown Rx ED Physical Exam - General Limitations: Altered Mental Status, Physical Limitation General appearance: obtunded, obese, other (GCS of 3T) - Head Head exam: Present: atraumatic, normocephalic - Eye Eye exam: Present: conjunctival injection, other (Pupils dilated do not react to light.) - ENT ENT exam: Present: mucous membranes moist, normal external ear exam - Neck Neck exam: Present: normal inspection, other (Endotracheal tube noted on the anterior aspect of the neck) - Respiratory Respiratory exam: Present: other (The patient is apneic). Absent: normal lung sounds bilaterally, respiratory distress - Cardiovascular Cardiovascular Exam: Present: other (No pulses appreciated). Absent: regular rate, normal rhythm - GI/Abdominal GI/Abdominal exam: Present: soft - Extremities Exam Extremities exam: Present: normal inspection, other (I/O noted in the left lower extremity) - Back Exam Back exam: Present: normal inspection - Neurological Exam Neurological exam: Present: altered (Nonverbal, GCS of 3) - Psychiatric Psychiatric exam: Present: other (Patient is nonverbal) - Skin Skin exam: Present: warm, dry, intact, normal color. Absent: rash ED Medical Decision Making - Medical Decision Making Differential diagnosis, including but not limited to: Pneumonia, pulmonary embolism, acute coronary syndrome, tension pneumothorax, bacteremia, viremia, stroke Critical care attestation.: If time is entered above; I have spent that time in minutes in the direct care of this critically ill patient, excluding procedure time. ED Disposition Clinical Impression: Cardiac arrest Disposition: DC-20 Is pt being admited?: No Does the pt Need Aspirin: No Condition: Undetermined
== END 2020-11-05 06:45 ==
LOC: ED 02:47
DX: I46.9 Cardiac arrest, cause unspecified (principal); I11.0 Hypertensive heart disease with heart failure; I50.9 Heart failure, unspecified; E11.9 Type 2 diabetes mellitus without complications; F03.90 Unspecified dementia, unspecified severity, without behavioral disturbance, psychotic disturbance, mood disturbance, and anxiety; Z98.890 Other specified postprocedural states; Z79.82 Long term (current) use of aspirin; Z88.8 Allergy status to other drugs, medicaments and biological substances; Z79.899 Other long term (current) drug therapy
CPT/HCPCS: 92950; 99285